=== PATIENT | male | born 1930 | race Caucasian/White ===

== ENCOUNTER 2018-07-08 02:29 | Inpatient (IN) | payer MEDICARE, MEDICAID ==
[2018-07-08] VITALS (19 sets, daily range): BP systolic 80–133; BP diastolic 42–77
[~2018-07-08] VITALS: Ht 188 cm; Wt 91.2 kg
[2018-07-08] MEDS ORDERED: cefTRIAXone 1 GM in NS 55 ML IVPB ONE (02:45)
[2018-07-08 03:06] LABS: APPEARANCE,URINE VERY CLOUDY; BILIRUBIN, URINE NEGATIVE (NEGATIVE); COLOR,URINE RED; GLUCOSE, URINE (UA) NEGATIVE (NEGATIVE); HEMATOCRIT 30.7 % (42.0-52.0); HEMOGLOBIN 10.1 G/DL (14.2-18.0); KETONES,URINE NEGATIVE (NEGATIVE); LEUKOCYTE ESTERASE ,URINE 3+ (NEGATIVE); MEAN CORPUSCULAR VOLUME 94 FL (80-99); NITRITE,URINE NEGATIVE (NEGATIVE); PH,URINE 8 (4.5-8.0); PLATELET COUNT 290 K/UL (150-450); PROTEIN,URINE 4+ (NEGATIVE); RED BLOOD COUNT 3.28 M/UL (4.70-6.10); RED CELL DISTRIBUTION WIDTH 14.3 % (11.6-14.8); UROBILINOGEN,URINE NORMAL MG/DL (0.0-1.0); WHITE BLOOD COUNT 4.5 K/UL (4.8-10.8)
[2018-07-08 03:15] LABS: ANION GAP 1 mmol/L (5-15); BLOOD UREA NITROGEN 46 mg/dL (7-18); CALCIUM 8.6 MG/DL (8.5-10.1); CARBON DIOXIDE 39 MMOL/L (21-32); CHLORIDE 97 MMOL/L (98-107); CREATININE 1.2 MG/DL (0.55-1.30); POTASSIUM 4.4 MMOL/L (3.5-5.1); SODIUM 136 MMOL/L (136-145)
[2018-07-08 03:20] LABS: ALANINE AMINOTRANSFERASE 18 U/L (12-78); ALBUMIN 2.1 G/DL (3.4-5.0); ALBUMIN/GLOBULIN RATIO 0.5 (1.0-2.7); ALKALINE PHOSPHATASE 229 U/L (46-116); ASPARTATE AMINO TRANSFERASE 22 U/L (15-37); BILIRUBIN,TOTAL 0.8 MG/DL (0.2-1.0); CREATINE KINASE 46 U/L (26-308)
[2018-07-08 03:25] LABS: INR 5.5 (0.9-1.1)
--- NOTE | 2018-07-08 03:45 | Diagnostic Imaging Report ---
EXAM: XR Chest, 1 View CLINICAL HISTORY: CP TECHNIQUE: Frontal view of the chest. COMPARISON: No relevant prior studies available. FINDINGS: Lungs: There are bilateral pulmonary infiltrates seen at the right lung base and left perihilar and left lower lung. Pleural space: Left pleural effusion. No pneumothorax. Heart: Heart size cannot be evaluated due to patient positioning. Mediastinum: There is a questionable hiatal hernia. Bones/joints: Degenerative changes of the spine. Vasculature: Calcification of the aortic arch. Other findings: The patient is rotated. IMPRESSION: 1. Bilateral pulmonary infiltrates. 2. Left pleural effusion.
--- NOTE | 2018-07-08 04:16 | Emergency Room Report ---
History of Present Illness General Chief Complaint: Altered Level of Consciousness Source: EMS Present Illness HPI 88M with altered compared to baseline acc to SNF. The patient supposedly is somewhat communicative. For me he is able to look around with his name. But unable to talk meaningfully to me. History is limited due to clinical condition. Allergies: Coded Allergies: PENICILLINS (Verified Allergy, Intermediate, 07/08/18) Nursing Documentation-PMH Hx Hypertension: Yes Review of Systems All Other Systems: limited Physical Exam Vital Signs Date Time Temp Pulse Resp B/P (MAP) Pulse Ox O2 Delivery O2 Flow Rate FiO2 07/08/18 02:22 98.1 110 20 76/42 87 Room Air 07/08/18 02:50 15.0 07/08/18 02:50 90 Sp02 EP Interpretation: abnormal General Appearance: mild distress Head: normocephalic, atraumatic ENT: dry mucus membranes Neck: supple Respiratory: other - mild resp distress Cardiovascular #1: regular rate, rhythm, other - anasarca, edema Gastrointestinal: other - PEG Genitourinary: other - parker inserted into urethra only; gross hematuria Musculoskeletal: other - anasarca Neurologic: alert Skin: other - some skin breakdown; stage I sacral Medical Decision Making Diagnostic Impression: Primary Impression: Altered level of consciousness Additional Impressions: UTI (urinary tract infection) Sepsis Pneumonia ER Course I do not want to give addl IV fluids due to anasarca. I am giving second liter NS due to borderline bp. Now bp is SBP 96. The pulse ox is fine (when it's low it's been b/c the pulse ox is loose on finger.) At this time I do not think pt. should be intubated due to him being alert and oriented and no dyspnea. He does have a very poor looking CXR with infiltrates and left effusion and he is anasarca and received two liters NS in ED. He could deteriorate and need intubation later today but at this time he is in no resp distress. He also is alert and oriented. He also had severe gross hematuria related to Parker being in urethra and INR 5.5. Parker has been replaced and properly positioned. Urine is grossly purulent. He also has Stage I sacral decubitus. He has been treated with Ceftriaxone and Zithromax. IV Albumin ordered due to trying to not give too much fluid. Critical care 35 minutes This patient had life threatening conditions requiring intensive management face to face and with RN and medical staff. Dr. Infante has been notified. EKG Diagnostic Results EKG Time: 05:12 Rate: tachycardiac ST Segments: no acute changes ASA given to the pt in ED: No Rhythm Strip Diag. Results Rhythm Strip Time: 05:12 EP Interpretation: yes Rate: 82 Rhythm: NSR Chest X-Ray Diagnostic Results Chest X-Ray Diagnostic Results : Chest X-Ray Ordered: Yes # of Views/Limited/Complete: 1 View Indication: Shortness of Breath EP Interpretation: Yes Interpretation: other - left effusion, bilateral infiltrates Last Vital Signs Date Time Temp Pulse Resp B/P (MAP) Pulse Ox O2 Delivery O2 Flow Rate FiO2 07/08/18 02:50 80 18 Non-Rebreather 15.0 90 07/08/18 02:50 101.0 83/42 90 Status: unchanged Disposition: ADMITTED INPATIENT Condition: Critical Referrals: NON PHYSICIAN (PCP) Janusz Montes M.D. Jul 08, 2018 04:16
[2018-07-08] MEDS ORDERED: Azithromycin 500 MG in NS 275 ML IV ONE (05:30)
[2018-07-08] MEDS ORDERED: Albuterol/Ipratropium 3ml neb HHN PRN (06:30)
[2018-07-08] MEDS ORDERED: Morphine Sulfate 4mg/ml Inj (IV/IM USE ONLY) IVP PRN (06:30)
[2018-07-08] MEDS ORDERED: Miralax 17gm pkt ORAL PRN (06:30)
[2018-07-08] MEDS ORDERED: Sodium Chloride 500ML 500 ML IV ONE (07:30)
[2018-07-08] MEDS ORDERED: Amikacin Rx to dose MISC PRN (07:45)
[2018-07-08] MEDS ORDERED: Heparin 5000 units/ml inj SUBQ SCH (09:00)
[2018-07-08] MEDS ORDERED: Pantoprazole Inj IVP SCH (09:00)
[2018-07-08] MEDS: Ertapenem 1 GM in NS 55 ML IV SCH (09:01)
--- NOTE | 2018-07-08 09:06 | Pulmonolgy Critical Care Note ---
Critical Care - Asmt/Plan Assessment/Plan: HPI Patient is an 88 year old man admitted with altered mental status, UTI, Pneumonia, hypotension, significantly elevated INR, difficult urethral catheterization. Baseline mental status at [facility] is somewhat communicative. History is limited due to clinical condition. Allergies: Coded Allergies: PENICILLINS (Verified Allergy, Intermediate, 07/08/18) PMH: Hypertension: Yes System review: limited Physical Exam Vital Signs 07/08/18 02:22 T 98.1 HR 110 RR 20 BP 76/42 O2 sats 87 RA General Appearance: mild distress Head: normocephalic, atraumatic ENT: dry mucus membranes Neck: supple Respiratory: other - mild resp distress Cardiovascular : regular rate, rhythm, other - anasarca, edema Gastrointestinal: other - PEG Genitourinary: other - parker inserted into urethra only; gross hematuria Musculoskeletal: other - anasarca Neurologic: alert Skin: other moderate edema, no rashes, stage I sacral ulcer EKG Rate: Sinus tachycardia ST Segments: no acute changes Chest X-Ray: Left effusion, bilateral infiltrates Impression: Altered level of consciousness Pneumonia Urinary tract infection Sepsis Plan IV fluids PRN, IV Albumin PRN FFP to correct INR Broad spectrum antibiotics: Ceftriaxone and Zithromax PPX: Protonix, SCD Oxygen for O2 sats 90-96% ABG, may require intubation if incfreased O2 requirements Consider thoracentesis once coagulopathy corrected Critical Care - Objective Last 24 Hour Vital Signs Date Time Temp Pulse Resp B/P (MAP) Pulse Ox O2 Delivery O2 Flow Rate FiO2 07/08/18 08:34 98.9 77 20 97/53 99 Room Air 15.0 90 07/08/18 07:26 77 20 97/53 99 Room Air 07/08/18 05:21 98.9 99 18 90/57 90 Room Air 07/08/18 04:50 98.9 90 18 96/56 90 Room Air 07/08/18 03:50 99.9 18 80/43 90 Non-Rebreather 15.0 07/08/18 02:50 80 18 Non-Rebreather 15.0 90 07/08/18 02:50 101.0 20 83/42 90 Non-Rebreather 15.0 07/08/18 02:22 98.1 110 20 76/42 87 Room Air Micro: Microbiology Date/Time Source Procedure Growth Status 07/08/18 05:30 Nose Influenza Types A,B Antigen (VICK) - Final Complete Critical Care - Subjective ROS Limited/Unobtainable: Yes Condition: critical EKG Rhythm: Sinus Rhythm FI02: 90 I&O: Intake and Output 07/07/18 07/08/18 18:59 06:59 Intake Total 500 ml Balance 500 ml Intake IV Total 500 ml Jerry Altman MD Jul 08, 2018 09:06
[2018-07-08] MEDS ORDERED: Lidocaine 1% Plain 30 ml INJ PRN (09:30)
[2018-07-08] MEDS ORDERED: Vancomycin 1.5 GM/D5W 250ML IVPB ONE (10:00)
[2018-07-08] MEDS ORDERED: NS IV SCH (12:00)
[2018-07-08] MEDS ORDERED: AMIKACIN IV SCH (12:00)
--- NOTE | 2018-07-08 14:19 | Cardiac Electrophysiology PN ---
Subjective Subjective [id number] Objective Last 24 Hour Vital Signs Date Time Temp Pulse Resp B/P (MAP) Pulse Ox O2 Delivery O2 Flow Rate FiO2 07/08/18 12:30 Bi-pap 07/08/18 12:30 72 17 95 Facial 35 07/08/18 12:00 97.8 75 20 103/59 (74) 97 07/08/18 12:00 35 07/08/18 11:00 75 20 103/59 (74) 97 07/08/18 10:00 74 20 104/53 (70) 94 07/08/18 09:00 97.9 75 21 87/43 (58) 100 07/08/18 08:45 Non-Rebreather 15.0 07/08/18 08:45 15.0 100 07/08/18 08:34 98.9 77 20 97/53 99 Room Air 15.0 90 07/08/18 08:30 71 07/08/18 07:26 77 20 97/53 99 Room Air 07/08/18 05:21 98.9 99 18 90/57 90 Room Air 07/08/18 04:50 98.9 90 18 96/56 90 Room Air 07/08/18 03:50 99.9 18 80/43 90 Non-Rebreather 15.0 07/08/18 02:50 80 18 Non-Rebreather 15.0 90 07/08/18 02:50 101.0 20 83/42 90 Non-Rebreather 15.0 07/08/18 02:22 98.1 110 20 76/42 87 Room Air Intake and Output 07/07/18 07/08/18 18:59 06:59 Intake Total 500 ml Balance 500 ml Intake IV Total 500 ml Laboratory Tests Test 07/08/18 02:33 07/08/18 03:00 07/08/18 05:52 07/08/18 09:27 White Blood Count 4.5 K/UL (4.8-10.8) L Red Blood Count 3.28 M/UL (4.70-6.10) L Hemoglobin 10.1 G/DL (14.2-18.0) L Hematocrit 30.7 % (42.0-52.0) L Mean Corpuscular Volume 94 FL (80-99) Mean Corpuscular Hemoglobin 30.8 PG (27.0-31.0) Mean Corpuscular Hemoglobin Concent 32.9 G/DL (32.0-36.0) Red Cell Distribution Width 14.3 % (11.6-14.8) Platelet Count 290 K/UL (150-450) Mean Platelet Volume 7.1 FL (6.5-10.1) Neutrophils (%) (Auto) % (45.0-75.0) Lymphocytes (%) (Auto) % (20.0-45.0) Monocytes (%) (Auto) % (1.0-10.0) Eosinophils (%) (Auto) % (0.0-3.0) Basophils (%) (Auto) % (0.0-2.0) Differential Total Cells Counted 100 Neutrophils % (Manual) 79 % (45-75) H Lymphocytes % (Manual) 7 % (20-45) L Monocytes % (Manual) 2 % (1-10) Eosinophils % (Manual) 0 % (0-3) Basophils % (Manual) 0 % (0-2) Band Neutrophils 12 % (0-8) H Platelet Estimate Adequate Platelet Morphology Normal Hypochromasia 1+ Anisocytosis 1+ Prothrombin Time 53.2 SEC (9.30-11.50) H Prothromb Time International Ratio 5.5 (0.9-1.1) *H Urine Color Red Urine Appearance Very cloudy Urine pH 8 (4.5-8.0) Urine Specific [place] 1.015 (1.005-1.035) Urine Protein 4+ (NEGATIVE) H Urine Glucose (UA) Negative (NEGATIVE) Urine Ketones Negative (NEGATIVE) Urine Blood 5+ (NEGATIVE) H Urine Nitrite Negative (NEGATIVE) Urine Bilirubin Negative (NEGATIVE) Urine Urobilinogen Normal MG/DL (0.0-1.0) Urine Leukocyte Esterase 3+ (NEGATIVE) H Urine RBC Tntc /HPF (0 - 0) H Urine WBC Tntc /HPF (0 - 0) H Urine Squamous Epithelial Cells Few /LPF (NONE/OCC) Urine Bacteria Many /HPF (NONE) H Sodium Level 136 MMOL/L (136-145) Potassium Level 4.4 MMOL/L (3.5-5.1) Chloride Level 97 MMOL/L (98-107) L Carbon Dioxide Level 39 MMOL/L (21-32) H Anion Gap 1 mmol/L (5-15) L Blood Urea Nitrogen 46 mg/dL (7-18) H Creatinine 1.2 MG/DL (0.55-1.30) Estimat Glomerular Filtration Rate mL/min (>60) Glucose Level 89 MG/DL (74-106) Lactic Acid Level 2.90 mmol/L (0.4-2.0) H 2.50 mmol/L (0.66-2.22) H Calcium Level 8.6 MG/DL (8.5-10.1) Total Bilirubin 0.8 MG/DL (0.2-1.0) Aspartate Amino Transf (AST/SGOT) 22 U/L (15-37) Alanine Aminotransferase (ALT/SGPT) 18 U/L (12-78) Alkaline Phosphatase 229 U/L (46-116) H Total Creatine Kinase 46 U/L (26-308) Troponin I 0.053 ng/mL (0.000-0.056) Total Protein 6.6 G/DL (6.4-8.2) Albumin 2.1 G/DL (3.4-5.0) L Globulin 4.5 g/dL Albumin/Globulin Ratio 0.5 (1.0-2.7) L Pro-B-Type Natriuretic Peptide 6812 pg/mL (0-125) H Arterial Blood pH 7.360 (7.350-7.450) Arterial Blood Partial Pressure CO2 66.8 mmHg (35.0-45.0) *H Arterial Blood Partial Pressure O2 101.4 mmHg (75.0-100.0) H Arterial Blood HCO3 36.9 mmol/L (22.0-26.0) H Arterial Blood Oxygen Saturation 96.8 % (95-100) Arterial Blood Base Excess 9.9 (-2-2) *H Guicho Test Positive Test 07/08/18 12:45 Lactic Acid Level 2.30 mmol/L (0.4-2.0) H Microbiology Date/Time Source Procedure Growth Status 07/08/18 05:30 Nose Influenza Types A,B Antigen (VICK) - Final Complete Gerson Isaacs MD Jul 08, 2018 14:19
--- NOTE | 2018-07-08 14:30 | History & Physical ---
History and Physical History & Physicial Dictated for Int Med-Dr Herman no. [id number]. Dale Hale MD Jul 08, 2018 14:30
[2018-07-08] MEDS ORDERED: Tubing Blood Filter IV ONE (15:11)
[2018-07-08] MEDS ORDERED: Tubing IV Secondary IV ONE (15:11)
[2018-07-08] MEDS ORDERED: NS 500ML ONE (15:11)
[2018-07-08] MEDS: Pantoprazole Inj IVP SCH (21:20)
[2018-07-08] MEDS: Vancomycin 750mg/NS 250ml IVPB SCH (21:50)
[2018-07-08] MEDS ORDERED: Vancomycin 1 GM in D5W 275 ML IV SCH (23:45)
[2018-07-09] VITALS (24 sets, daily range): BP systolic 125–163; BP diastolic 60–80
--- NOTE | 2018-07-09 02:45 | History and Physical Report ---
DATE OF ADMISSION: 07/08/2018 CHIEF COMPLAINT: The patient is an 88-year-old white male, who presents with complaint of altered mental status. HISTORY OF PRESENT ILLNESS: The patient is a resident of [facility]. Much of the history and physical has taken from the patient's previous caregiver, who is at the bedside. The patient apparently was admitted to the [facility] previously. The patient was discharged to [facility]. The patient has a history of deep venous thrombosis. The patient is on Coumadin therapy. According to the staff at [facility], the patient became altered for the last couple of days. The patient is usually able to speak and answer questions. The patient was increasingly altered on Monday, July 07, 2018. The patient was transferred to [facility] for an evaluation. The patient was found to have urinary tract infection and congestive heart failure. The patient is admitted for urinary tract infection and presumed sepsis. REVIEW OF SYSTEMS: Unable to assess secondary to the patient's mental status. PAST MEDICAL HISTORY: Significant for, 1. Congestive heart failure. 2. Hypertension. 3. Benign prostatic hypertrophy. 4. Iron deficiency anemia. PAST SURGICAL HISTORY: Unknown. CURRENT MEDICATIONS: From [facility], 1. Coumadin 4 mg p.o. daily. 2. DuoNeb nebulized q.6 h. p.r.n. 3. Furosemide 20 mg per G-tube every other day. 4. Melatonin 3 mg p.o. at bedtime. 5. Mirtazapine 45 mg p.o. at bedtime. 6. MiraLAX one packet per G-tube daily. 7. Potassium chloride 40 mEq per G-tube daily. 8. Valsartan 160 mg per G-tube twice daily. ALLERGIES: Penicillin. SOCIAL HISTORY: The patient is . The patient denies tobacco use. PHYSICAL EXAMINATION: VITAL SIGNS: Temperature 97.9, respirations , pulse 75, and blood pressure 87/43. GENERAL: The patient is a well-developed and well-nourished white male, who is currently on BiPAP. HEENT: Eyes, pupils are equal and responsive to light and accommodation. Extraocular movements are intact. NECK: Supple without lymphadenopathy. CHEST: Lungs have bibasilar crackles one-third of the way up, otherwise without wheezes or rales. CARDIOVASCULAR: Bradycardia, S1 and S2 normal without murmurs, rubs, or gallops. ABDOMEN: Soft, nontender, and nondistended. Positive bowel sounds. No evidence of hepatosplenomegaly. Currently, no rebound or guarding noted. EXTREMITIES: Negative for clubbing, cyanosis, or edema. RECTAL/GENITAL: Do not performed. NEUROLOGICAL: Cranial nerves II through XII are grossly intact without focal deficits. LABORATORY AND DIAGNOSTIC DATA: WBC 4.5, hemoglobin 10.1, hematocrit 30.7, and platelets 290,000. Sodium 136, potassium 4.4, chloride 97, CO2 39, BUN 46, creatinine 1.2, and glucose 89. BNP elevated at 6812. Troponin elevated at 0.053. Urinalysis showed 4+ protein, 5+ blood, 3+ leukocyte esterase, and rbc's and wbc's too numerous to count. ProTime elevated at 53.2 with an INR 5.5. ASSESSMENT: This is an 88-year-old white male. 1. Altered mental status. 2. Bradycardia. 3. Coagulopathy. 4. Congestive heart failure. 5. Hypertension. 6. Benign prostatic hypertrophy. 7. History of iron deficiency anemia. TREATMENT: 1. Altered mental status. This may be secondary to sepsis versus congestive heart failure. The patient is currently on BiPAP. A Pulmonary consultation has been obtained with Dr. Gertrudis Quintanilla. We will follow recommendations of Pulmonary. 2. Bradycardia. A Cardiology consultation has been obtained with Dr. Gerson Isaacs. We will follow recommendation of Cardiology. 3. Congestive heart failure. The patient is currently receiving Lasix intravenously. A Cardiology consultation has been obtained with Dr. Gerson Isaacs. An echocardiogram is pending. 4. Coagulopathy, this is probably secondary to chronic Coumadin use. The patient is currently receiving fresh frozen plasma. 5. Hypertension. The patient is currently hypotensive. 6. Benign prostatic hypertrophy. 7. History of iron deficiency anemia. Dale Hale M.D. DR: SUMA JOB#: [id number] CC:
--- NOTE | 2018-07-09 04:30 | Consultation ---
DATE OF CONSULTATION: 07/08/2018 CARDIOLOGY CONSULTATION CONSULTING PHYSICIAN: Gerson Isaacs M.D. REFERRING PHYSICIAN: Dale Hale M.D. REASON FOR CONSULTATION: Bradycardia, hypotension, and elevated INR in a patient with sepsis and septic shock. HISTORY OF PRESENT ILLNESS: The patient is an 88-year-old gentleman, who is a custodial resident, who was brought in for hypotension and altered mental status. The patient was found to have sepsis, elevated INR, and blood pressure was in the 70s. The patient has also bradycardia with heart rate in the 50s. The patient was admitted to the intensive care unit. Cardiology consultation was obtained for further evaluation and management. REVIEW OF SYSTEMS: Cannot be obtained as he is currently on BiPAP. PAST MEDICAL HISTORY: As mentioned above. FAMILY HISTORY: Noncontributory. SOCIAL HISTORY: He lives in a custodial. He does not smoke or drink alcohol. PHYSICAL EXAMINATION: VITAL SIGNS: Blood pressure was 75/50, currently 102/59; pulse is 70; respirations 18; and he is afebrile. HEAD AND NECK: Shows no JVD. He has BiPAP on. LUNGS: Coarse rhonchi. CARDIOVASCULAR: Shows regular S1 and S2 with no gallop or murmur. ABDOMEN: Soft. EXTREMITIES: 1+ pitting edema. LABORATORY AND DIAGNOSTIC DATA: His labs showed white count 4.5, hemoglobin 10.9, hematocrit of 30, and platelet count of 290,000. His troponin is negative. Sodium 136, potassium 4.4, BUN of 36, creatinine of 1.2, and glucose of 89. Alkaline phosphatase is 229. INR is 5.5. Urinalysis showed too numerous to count wbc and rbc, had 3+ leukocyte esterase, and many bacteria. ASSESSMENT AND PLAN: 1. Hypotension due to likely septic shock. The patient is ordered for Levophed. They are waiting central line. He is getting IV fluids, already on broad-spectrum IV antibiotics as well. We will get an echocardiogram to evaluate for ejection fraction and wall motion abnormality. 2. Bradycardia, heart rate is improving. Keep the patient off any sinus or AV ac blocking agents. 3. History of DVT. The patient was on Coumadin. INR is 5.5. The patient is getting FFP. Current duplex is negative for DVT. 4. History of respiratory failure, currently on BiPAP. The patient may need intubation, admitted to increased home O2 requirement. 5. Pleural effusion. Consider thoracentesis once coagulopathy corrected. Thank you very much for allowing me to participate in the care of this patient. Please do not hesitate to contact me for any questions regarding my evaluation. Gerson Isaacs M.D. DR: NICOLE JOB#: [id number] CC:
[2018-07-09 05:52] LABS: HEMATOCRIT 28.1 % (42.0-52.0); HEMOGLOBIN 9.8 G/DL (14.2-18.0); MEAN CORPUSCULAR VOLUME 94 FL (80-99); PLATELET COUNT 252 K/UL (150-450); RED BLOOD COUNT 2.98 M/UL (4.70-6.10); RED CELL DISTRIBUTION WIDTH 14.4 % (11.6-14.8); WHITE BLOOD COUNT 14.9 K/UL (4.8-10.8)
[2018-07-09 06:10] LABS: ALANINE AMINOTRANSFERASE 18 U/L (12-78); ALBUMIN 2.3 G/DL (3.4-5.0); ALBUMIN/GLOBULIN RATIO 0.6 (1.0-2.7); ALKALINE PHOSPHATASE 151 U/L (46-116); ANION GAP 0 mmol/L (5-15); ASPARTATE AMINO TRANSFERASE 21 U/L (15-37); BILIRUBIN,DIRECT 0.1 MG/DL (0.0-0.3); BILIRUBIN,TOTAL 0.4 MG/DL (0.2-1.0); BLOOD UREA NITROGEN 46 mg/dL (7-18); CALCIUM 8.9 MG/DL (8.5-10.1); CARBON DIOXIDE 36 MMOL/L (21-32); CHLORIDE 102 MMOL/L (98-107); CREATININE 1.1 MG/DL (0.55-1.30); POTASSIUM 4.3 MMOL/L (3.5-5.1); SODIUM 138 MMOL/L (136-145)
[2018-07-09] MEDS: Pantoprazole Inj IVP SCH ×2 (09:02→20:40)
[2018-07-09] MEDS: Ertapenem 1 GM in NS 55 ML IV SCH (09:03)
[2018-07-09] MEDS: Vancomycin 750mg/NS 250ml IVPB SCH ×2 (09:20→22:26)
--- NOTE | 2018-07-09 10:22 | Pulmonolgy Critical Care Note ---
Critical Care - Asmt/Plan Problems: (1) Septic shock (2) Altered level of consciousness (3) Dementia (4) UTI (urinary tract infection) (5) Pneumonia (6) Feeding by G-tube Respiratory: monitor respiratory rate, adjust FIO2, CXR Cardiac: continue to monitor HR/BP Renal: F/U I&O, check electrolytes Infectious Disease: check cultures Gastrointestinal: start feedings Endocrine: monitor blood sugar, check TSH Hematologic: transfuse if hgb<8.5 Neurologic: PRN Ativan, keep patient comfortable Disposition: keep in ICU Notes Reviewed: java software architect Discussed with: nurses, consultants, case workerhousehold manager - Objective Last 24 Hour Vital Signs Date Time Temp Pulse Resp B/P (MAP) Pulse Ox O2 Delivery O2 Flow Rate FiO2 07/09/18 09:00 67 18 148/71 (96) 99 07/09/18 08:28 150/70 07/09/18 08:00 69 07/09/18 08:00 Nasal Cannula 2.0 07/09/18 08:00 71 20 150/70 (96) 96 07/09/18 07:05 Nasal Cannula 2.0 28 07/09/18 07:05 93 Nasal Cannula 2.0 28 07/09/18 07:00 97.4 62 26 140/70 (93) 92 07/09/18 06:00 68 17 133/70 (91) 95 07/09/18 05:41 65 16 98 2.0 28 07/09/18 05:36 64 18 100 Facial 30 07/09/18 05:00 60 18 133/70 (91) 98 07/09/18 04:00 Nasal Cannula 2.0 07/09/18 04:00 66 07/09/18 04:00 97.7 62 16 146/65 (92) 100 07/09/18 03:00 62 14 153/80 (104) 100 07/09/18 02:40 63 17 98 Facial 30 07/09/18 02:00 62 16 127/66 (86) 99 07/09/18 01:18 62 17 100 Facial 30 07/09/18 01:00 67 16 132/69 (90) 99 07/09/18 00:00 97.8 69 16 125/60 (81) 99 07/09/18 00:00 Nasal Cannula 2.0 07/08/18 23:29 72 17 96 Facial 30 07/08/18 23:00 72 16 127/62 (83) 96 07/08/18 22:00 72 18 128/75 (92) 96 07/08/18 21:05 72 16 99 28 07/08/18 21:00 72 18 131/75 (93) 96 07/08/18 20:00 97.6 72 17 127/62 (83) 96 07/08/18 20:00 72 07/08/18 20:00 Nasal Cannula 2.0 07/08/18 19:18 Nasal Cannula 2.0 28 07/08/18 19:18 99 Nasal Cannula 2.0 28 07/08/18 19:17 70 19 Nasal Cannula 2.0 28 07/08/18 19:15 70 19 2.0 28 07/08/18 18:00 65 16 121/77 (92) 99 07/08/18 17:01 67 16 100 Facial 35 07/08/18 17:00 66 16 125/66 (85) 99 07/08/18 16:00 97.8 64 15 115/52 (73) 100 07/08/18 16:00 62 07/08/18 16:00 Bi-pap 07/08/18 16:00 15.0 100 07/08/18 15:26 62 16 100 Facial 35 07/08/18 15:00 60 16 133/77 (95) 99 07/08/18 14:00 61 14 106/63 (77) 100 07/08/18 13:00 62 14 81/53 (62) 100 07/08/18 12:30 Bi-pap 07/08/18 12:30 72 17 95 Facial 35 07/08/18 12:00 97.8 75 20 103/59 (74) 97 07/08/18 12:00 35 07/08/18 12:00 77 07/08/18 11:00 75 20 103/59 (74) 97 Status: awake Condition: critical HEENT: atraumatic Neck: full ROM Lungs: rales, rhonchi Heart: HR/BP stable Abdomen: soft, non-tender Extremities: no C/C/E, edema Decubiti: location Micro: Microbiology Date/Time Source Procedure Growth Status 07/08/18 02:48 Blood Blood Culture - Preliminary NO GROWTH AFTER 24 HOURS Resulted 07/08/18 02:33 Blood Blood Culture - Preliminary NO GROWTH AFTER 24 HOURS Resulted 07/08/18 05:30 Nose Influenza Types A,B Antigen (VICK) - Final Complete 07/08/18 14:55 Indwelling Cath Urine Culture - Preliminary Gram Negative Bacillus 1 Resulted 07/08/18 02:33 Urine,Clean Catch Urine Culture - Preliminary Resulted 07/08/18 07:24 Rectum - Preliminary Resulted Critical Care - Subjective ROS Limited/Unobtainable: No ICU Day: 3 Condition: improving EKG Rhythm: Sinus Rhythm FI02: 28 Sputum Amount: None Fluids: NS 100 cc/hour I&O: Intake and Output 07/08/18 07/09/18 19:00 07:00 Intake Total 1865.2 ml 1350.0 ml Output Total 1040 ml 480 ml Balance 825.2 ml 870.0 ml Intake IV Total 1235.2 ml 1350.0 ml Blood Product 600 ml Other 30 ml Output Urine Total 1040 ml 480 ml Labs: Laboratory Tests Test 07/08/18 12:45 07/08/18 19:00 07/09/18 00:20 07/09/18 04:30 Lactic Acid Level 2.30 mmol/L (0.4-2.0) H 1.20 mmol/L (0.4-2.0) Miscellaneous Test 2 Pending Random Amikacin Level 16.3 ug/mL White Blood Count 14.9 K/UL (4.8-10.8) #H Red Blood Count 2.98 M/UL (4.70-6.10) L Hemoglobin 9.8 G/DL (14.2-18.0) L Hematocrit 28.1 % (42.0-52.0) L Mean Corpuscular Volume 94 FL (80-99) Mean Corpuscular Hemoglobin 32.9 PG (27.0-31.0) H Mean Corpuscular Hemoglobin Concent 34.9 G/DL (32.0-36.0) Red Cell Distribution Width 14.4 % (11.6-14.8) Platelet Count 252 K/UL (150-450) Mean Platelet Volume 7.6 FL (6.5-10.1) Neutrophils (%) (Auto) % (45.0-75.0) Lymphocytes (%) (Auto) % (20.0-45.0) Monocytes (%) (Auto) % (1.0-10.0) Eosinophils (%) (Auto) % (0.0-3.0) Basophils (%) (Auto) % (0.0-2.0) Differential Total Cells Counted 100 Neutrophils % (Manual) 90 % (45-75) H Lymphocytes % (Manual) 7 % (20-45) L Monocytes % (Manual) 3 % (1-10) Eosinophils % (Manual) 0 % (0-3) Basophils % (Manual) 0 % (0-2) Band Neutrophils 0 % (0-8) Platelet Estimate Adequate Platelet Morphology Normal Hypochromasia 2+ Anisocytosis 1+ Sodium Level 138 MMOL/L (136-145) Potassium Level 4.3 MMOL/L (3.5-5.1) Chloride Level 102 MMOL/L (98-107) Carbon Dioxide Level 36 MMOL/L (21-32) H Anion Gap 0 mmol/L (5-15) L Blood Urea Nitrogen 46 mg/dL (7-18) H Creatinine 1.1 MG/DL (0.55-1.30) Estimat Glomerular Filtration Rate mL/min (>60) Glucose Level 68 MG/DL (74-106) L Calcium Level 8.9 MG/DL (8.5-10.1) Total Bilirubin 0.4 MG/DL (0.2-1.0) Direct Bilirubin 0.1 MG/DL (0.0-0.3) Aspartate Amino Transf (AST/SGOT) 21 U/L (15-37) Alanine Aminotransferase (ALT/SGPT) 18 U/L (12-78) Alkaline Phosphatase 151 U/L (46-116) H Troponin I 0.015 ng/mL (0.000-0.056) Total Protein 6.4 G/DL (6.4-8.2) Albumin 2.3 G/DL (3.4-5.0) L Globulin 4.1 g/dL Albumin/Globulin Ratio 0.6 (1.0-2.7) L Gertrudis Quintanilla MD Jul 09, 2018 10:22
--- NOTE | 2018-07-09 11:06 | Consultation ---
History of Present Illness General Date patient seen: Jul 08, 2018 Chief Complaint: Altered Level of Consciousness Present Illness HPI 88-year-old white male, who presents with complaint of altered mental status.The patient is a resident of [facility] and I'm well familiar with him the pt has waxing and waning of consciousness and is confused. episodes of agitation Allergies: Coded Allergies: PENICILLINS (Verified Allergy, Intermediate, 07/08/18) Patient History History Provided By: Patient, Medical Record, PMD Healthcare decision maker Resuscitation status Full Code Advanced Directive on File Past Medical/Surgical History Past Medical/Surgical History: (1) Dementia (2) Sepsis (3) UTI (urinary tract infection) (4) Pneumonia (5) Altered level of consciousness (6) Feeding by G-tube (7) Septic shock Review of Systems Psychiatric: Reports: anxiety, hallucinations Physical Exam General Appearance: no apparent distress, alert, confused Last 24 Hour Vital Signs Date Time Temp Pulse Resp B/P (MAP) Pulse Ox O2 Delivery O2 Flow Rate FiO2 07/09/18 09:00 67 18 148/71 (96) 99 07/09/18 08:28 150/70 07/09/18 08:00 69 07/09/18 08:00 Nasal Cannula 2.0 07/09/18 08:00 71 20 150/70 (96) 96 07/09/18 07:05 Nasal Cannula 2.0 28 07/09/18 07:05 93 Nasal Cannula 2.0 28 07/09/18 07:00 97.4 62 26 140/70 (93) 92 07/09/18 06:00 68 17 133/70 (91) 95 07/09/18 05:41 65 16 98 2.0 28 07/09/18 05:36 64 18 100 Facial 30 07/09/18 05:00 60 18 133/70 (91) 98 07/09/18 04:00 Nasal Cannula 2.0 07/09/18 04:00 66 07/09/18 04:00 97.7 62 16 146/65 (92) 100 07/09/18 03:00 62 14 153/80 (104) 100 07/09/18 02:40 63 17 98 Facial 30 07/09/18 02:00 62 16 127/66 (86) 99 07/09/18 01:18 62 17 100 Facial 30 07/09/18 01:00 67 16 132/69 (90) 99 07/09/18 00:00 97.8 69 16 125/60 (81) 99 07/09/18 00:00 Nasal Cannula 2.0 07/08/18 23:29 72 17 96 Facial 30 07/08/18 23:00 72 16 127/62 (83) 96 07/08/18 22:00 72 18 128/75 (92) 96 07/08/18 21:05 72 16 99 28 07/08/18 21:00 72 18 131/75 (93) 96 07/08/18 20:00 97.6 72 17 127/62 (83) 96 07/08/18 20:00 72 07/08/18 20:00 Nasal Cannula 2.0 07/08/18 19:18 Nasal Cannula 2.0 28 07/08/18 19:18 99 Nasal Cannula 2.0 28 07/08/18 19:17 70 19 Nasal Cannula 2.0 28 07/08/18 19:15 70 19 2.0 28 07/08/18 18:00 65 16 121/77 (92) 99 07/08/18 17:01 67 16 100 Facial 35 07/08/18 17:00 66 16 125/66 (85) 99 07/08/18 16:00 97.8 64 15 115/52 (73) 100 07/08/18 16:00 62 07/08/18 16:00 Bi-pap 07/08/18 16:00 15.0 100 07/08/18 15:26 62 16 100 Facial 35 07/08/18 15:00 60 16 133/77 (95) 99 07/08/18 14:00 61 14 106/63 (77) 100 07/08/18 13:00 62 14 81/53 (62) 100 07/08/18 12:30 Bi-pap 07/08/18 12:30 72 17 95 Facial 35 07/08/18 12:00 97.8 75 20 103/59 (74) 97 07/08/18 12:00 35 07/08/18 12:00 77 Intake and Output 07/08/18 07/09/18 19:00 07:00 Intake Total 1865.2 ml 1350.0 ml Output Total 1040 ml 480 ml Balance 825.2 ml 870.0 ml Intake IV Total 1235.2 ml 1350.0 ml Blood Product 600 ml Other 30 ml Output Urine Total 1040 ml 480 ml Laboratory Tests Test 07/08/18 12:45 07/08/18 19:00 07/09/18 00:20 07/09/18 04:30 Lactic Acid Level 2.30 mmol/L (0.4-2.0) H 1.20 mmol/L (0.4-2.0) Miscellaneous Test 2 Pending Random Amikacin Level 16.3 ug/mL White Blood Count 14.9 K/UL (4.8-10.8) #H Red Blood Count 2.98 M/UL (4.70-6.10) L Hemoglobin 9.8 G/DL (14.2-18.0) L Hematocrit 28.1 % (42.0-52.0) L Mean Corpuscular Volume 94 FL (80-99) Mean Corpuscular Hemoglobin 32.9 PG (27.0-31.0) H Mean Corpuscular Hemoglobin Concent 34.9 G/DL (32.0-36.0) Red Cell Distribution Width 14.4 % (11.6-14.8) Platelet Count 252 K/UL (150-450) Mean Platelet Volume 7.6 FL (6.5-10.1) Neutrophils (%) (Auto) % (45.0-75.0) Lymphocytes (%) (Auto) % (20.0-45.0) Monocytes (%) (Auto) % (1.0-10.0) Eosinophils (%) (Auto) % (0.0-3.0) Basophils (%) (Auto) % (0.0-2.0) Differential Total Cells Counted 100 Neutrophils % (Manual) 90 % (45-75) H Lymphocytes % (Manual) 7 % (20-45) L Monocytes % (Manual) 3 % (1-10) Eosinophils % (Manual) 0 % (0-3) Basophils % (Manual) 0 % (0-2) Band Neutrophils 0 % (0-8) Platelet Estimate Adequate Platelet Morphology Normal Hypochromasia 2+ Anisocytosis 1+ Sodium Level 138 MMOL/L (136-145) Potassium Level 4.3 MMOL/L (3.5-5.1) Chloride Level 102 MMOL/L (98-107) Carbon Dioxide Level 36 MMOL/L (21-32) H Anion Gap 0 mmol/L (5-15) L Blood Urea Nitrogen 46 mg/dL (7-18) H Creatinine 1.1 MG/DL (0.55-1.30) Estimat Glomerular Filtration Rate mL/min (>60) Glucose Level 68 MG/DL (74-106) L Calcium Level 8.9 MG/DL (8.5-10.1) Total Bilirubin 0.4 MG/DL (0.2-1.0) Direct Bilirubin 0.1 MG/DL (0.0-0.3) Aspartate Amino Transf (AST/SGOT) 21 U/L (15-37) Alanine Aminotransferase (ALT/SGPT) 18 U/L (12-78) Alkaline Phosphatase 151 U/L (46-116) H Troponin I 0.015 ng/mL (0.000-0.056) Total Protein 6.4 G/DL (6.4-8.2) Albumin 2.3 G/DL (3.4-5.0) L Globulin 4.1 g/dL Albumin/Globulin Ratio 0.6 (1.0-2.7) L Microbiology Date/Time Source Procedure Growth Status 07/08/18 14:55 Indwelling Cath Urine Culture - Preliminary Gram Negative Bacillus 1 Resulted Height (Feet): 6 Height (Inches): 2.00 Weight (Pounds): 205 Medications Current Medications Medications (Trade) Dose Ordered Sig/Jorge Route PRN Reason Start Time Stop Time Status Last Admin Dose Admin Acetaminophen (Tylenol) 650 mg Q4H PRN ORAL fever (temp>100.5F) 07/08/18 06:30 08/07/18 06:29 Albuterol/ Ipratropium (Albuterol/ Ipratropium) 3 ml Q4H PRN HHN Shortness of Breath 07/08/18 06:30 07/13/18 06:29 Amikacin Protocol (Amikacin pharmacy to dose) 1 ea DAILY PRN MISC PER RX PROTOCOL 07/08/18 07:45 08/07/18 07:44 Amikacin Sulfate 1300 mg/Sodium Chloride 280.2 ml @ 280.2 mls/ hr Q48H IV 07/10/18 12:00 07/17/18 11:59 Ertapenem 1 gm/ Sodium Chloride 55 ml @ 110 mls/hr Q24H IV 07/08/18 09:00 07/13/18 08:59 07/09/18 09:03 Lidocaine HCl (Xylocaine 1% 30ml) 30 ml ONCE PRN INJ central line placement 07/08/18 09:30 07/09/18 23:59 Morphine Sulfate (Morphine Sulfate) 2 mg Q4H PRN IVP Severe Pain (Pain Scale 7-10) 07/08/18 06:30 07/15/18 06:29 Ondansetron HCl (Zofran) 4 mg Q6H PRN IVP Nausea & Vomiting 07/08/18 06:30 08/07/18 06:29 Pantoprazole (Protonix) 40 mg EVERY 12 HOURS IVP 07/08/18 21:00 08/07/18 20:59 07/09/18 09:02 Polyethylene Glycol (Miralax) 17 gm DAILYPRN PRN ORAL Constipation 07/08/18 06:30 08/07/18 06:29 Sodium Chloride 1,000 ml @ 50 mls/hr Q20H IVLG 07/09/18 10:15 08/08/18 10:14 Vancomycin HCl (Vanco rx to dose) 1 ea DAILY PRN MISC PER RX PROTOCOL 07/08/18 07:45 08/07/18 07:44 Vancomycin/Sodium Chloride 250 ml @ 166.667 mls/hr Q12HR@1000,2200 IVPB 07/08/18 22:00 07/13/18 21:59 07/09/18 09:20 Assessment/Plan Problem List: (1) Dementia ICD Codes: F03.90 - Unspecified dementia without behavioral disturbance SNOMED: 45159074 (2) Encephalopathy due to metabolic factor or toxin SNOMED: 519089844 Status: unchanged Assessment/Plan haldol prn head 20 degree provided Bartolome Cain MD Jul 09, 2018 11:06
--- NOTE | 2018-07-09 11:11 | Consultation ---
Consult Note Consult Note ID # [id number] Thuan Marti MD Jul 09, 2018 11:11
--- NOTE | 2018-07-09 11:21 | Cardiac Electrophysiology PN ---
Assessment/Plan Assessment/Plan 1. Hypotension due to likely septic shock. Off Levophed.On iv Abx Echocardiogram EF 55% 2. Bradycardia, heart rate is improving. Keep the patient off any sinus or AV ac blocking agents. 3. History of DVT. The patient was on Coumadin. INR was 5.5. S/P FFP. Current duplex is negative for DVT. 4. History of respiratory failure, now off BiPAP. 5. Pleural effusion. Consider thoracentesis once coagulopathy corrected. Subjective Subjective In ICU off BIPAP. No CP. In SR Objective Last 24 Hour Vital Signs Date Time Temp Pulse Resp B/P (MAP) Pulse Ox O2 Delivery O2 Flow Rate FiO2 07/09/18 09:00 67 18 148/71 (96) 99 07/09/18 08:28 150/70 07/09/18 08:00 69 07/09/18 08:00 Nasal Cannula 2.0 07/09/18 08:00 71 20 150/70 (96) 96 07/09/18 07:05 Nasal Cannula 2.0 28 07/09/18 07:05 93 Nasal Cannula 2.0 28 07/09/18 07:00 97.4 62 26 140/70 (93) 92 07/09/18 06:00 68 17 133/70 (91) 95 07/09/18 05:41 65 16 98 2.0 28 07/09/18 05:36 64 18 100 Facial 30 07/09/18 05:00 60 18 133/70 (91) 98 07/09/18 04:00 Nasal Cannula 2.0 07/09/18 04:00 66 07/09/18 04:00 97.7 62 16 146/65 (92) 100 07/09/18 03:00 62 14 153/80 (104) 100 07/09/18 02:40 63 17 98 Facial 30 07/09/18 02:00 62 16 127/66 (86) 99 07/09/18 01:18 62 17 100 Facial 30 07/09/18 01:00 67 16 132/69 (90) 99 07/09/18 00:00 97.8 69 16 125/60 (81) 99 07/09/18 00:00 Nasal Cannula 2.0 07/08/18 23:29 72 17 96 Facial 30 07/08/18 23:00 72 16 127/62 (83) 96 07/08/18 22:00 72 18 128/75 (92) 96 07/08/18 21:05 72 16 99 28 07/08/18 21:00 72 18 131/75 (93) 96 07/08/18 20:00 97.6 72 17 127/62 (83) 96 07/08/18 20:00 72 07/08/18 20:00 Nasal Cannula 2.0 07/08/18 19:18 Nasal Cannula 2.0 28 07/08/18 19:18 99 Nasal Cannula 2.0 28 07/08/18 19:17 70 19 Nasal Cannula 2.0 28 07/08/18 19:15 70 19 2.0 28 07/08/18 18:00 65 16 121/77 (92) 99 07/08/18 17:01 67 16 100 Facial 35 07/08/18 17:00 66 16 125/66 (85) 99 07/08/18 16:00 97.8 64 15 115/52 (73) 100 07/08/18 16:00 62 07/08/18 16:00 Bi-pap 07/08/18 16:00 15.0 100 07/08/18 15:26 62 16 100 Facial 35 07/08/18 15:00 60 16 133/77 (95) 99 07/08/18 14:00 61 14 106/63 (77) 100 07/08/18 13:00 62 14 81/53 (62) 100 07/08/18 12:30 Bi-pap 07/08/18 12:30 72 17 95 Facial 35 07/08/18 12:00 97.8 75 20 103/59 (74) 97 07/08/18 12:00 35 07/08/18 12:00 77 Intake and Output 07/08/18 07/09/18 19:00 07:00 Intake Total 1865.2 ml 1350.0 ml Output Total 1040 ml 480 ml Balance 825.2 ml 870.0 ml Intake IV Total 1235.2 ml 1350.0 ml Blood Product 600 ml Other 30 ml Output Urine Total 1040 ml 480 ml Laboratory Tests Test 07/08/18 12:45 07/08/18 19:00 07/09/18 00:20 07/09/18 04:30 Lactic Acid Level 2.30 mmol/L (0.4-2.0) H 1.20 mmol/L (0.4-2.0) Miscellaneous Test 2 Pending Random Amikacin Level 16.3 ug/mL White Blood Count 14.9 K/UL (4.8-10.8) #H Red Blood Count 2.98 M/UL (4.70-6.10) L Hemoglobin 9.8 G/DL (14.2-18.0) L Hematocrit 28.1 % (42.0-52.0) L Mean Corpuscular Volume 94 FL (80-99) Mean Corpuscular Hemoglobin 32.9 PG (27.0-31.0) H Mean Corpuscular Hemoglobin Concent 34.9 G/DL (32.0-36.0) Red Cell Distribution Width 14.4 % (11.6-14.8) Platelet Count 252 K/UL (150-450) Mean Platelet Volume 7.6 FL (6.5-10.1) Neutrophils (%) (Auto) % (45.0-75.0) Lymphocytes (%) (Auto) % (20.0-45.0) Monocytes (%) (Auto) % (1.0-10.0) Eosinophils (%) (Auto) % (0.0-3.0) Basophils (%) (Auto) % (0.0-2.0) Differential Total Cells Counted 100 Neutrophils % (Manual) 90 % (45-75) H Lymphocytes % (Manual) 7 % (20-45) L Monocytes % (Manual) 3 % (1-10) Eosinophils % (Manual) 0 % (0-3) Basophils % (Manual) 0 % (0-2) Band Neutrophils 0 % (0-8) Platelet Estimate Adequate Platelet Morphology Normal Hypochromasia 2+ Anisocytosis 1+ Sodium Level 138 MMOL/L (136-145) Potassium Level 4.3 MMOL/L (3.5-5.1) Chloride Level 102 MMOL/L (98-107) Carbon Dioxide Level 36 MMOL/L (21-32) H Anion Gap 0 mmol/L (5-15) L Blood Urea Nitrogen 46 mg/dL (7-18) H Creatinine 1.1 MG/DL (0.55-1.30) Estimat Glomerular Filtration Rate mL/min (>60) Glucose Level 68 MG/DL (74-106) L Calcium Level 8.9 MG/DL (8.5-10.1) Total Bilirubin 0.4 MG/DL (0.2-1.0) Direct Bilirubin 0.1 MG/DL (0.0-0.3) Aspartate Amino Transf (AST/SGOT) 21 U/L (15-37) Alanine Aminotransferase (ALT/SGPT) 18 U/L (12-78) Alkaline Phosphatase 151 U/L (46-116) H Troponin I 0.015 ng/mL (0.000-0.056) Total Protein 6.4 G/DL (6.4-8.2) Albumin 2.3 G/DL (3.4-5.0) L Globulin 4.1 g/dL Albumin/Globulin Ratio 0.6 (1.0-2.7) L Test 07/09/18 11:00 Prothrombin Time Pending Prothromb Time International Ratio Pending Activated Partial Thromboplast Time Pending Microbiology Date/Time Source Procedure Growth Status 07/08/18 02:48 Blood Blood Culture - Preliminary NO GROWTH AFTER 24 HOURS Resulted 07/08/18 02:33 Blood Blood Culture - Preliminary NO GROWTH AFTER 24 HOURS Resulted 07/08/18 05:30 Nose Influenza Types A,B Antigen (VICK) - Final Complete 07/08/18 14:55 Indwelling Cath Urine Culture - Preliminary Gram Negative Bacillus 1 Resulted 07/08/18 02:33 Urine,Clean Catch Urine Culture - Preliminary Resulted 07/08/18 07:24 Rectum - Preliminary Resulted Objective HEAD AND NECK: Shows no JVD. LUNGS: Coarse rhonchi. CARDIOVASCULAR: Regular S1 and S2 with no gallop or murmur. ABDOMEN: Soft. EXTREMITIES: 1+ pitting edema. Gerson Isaacs MD Jul 09, 2018 11:21
[2018-07-09 11:28] LABS: INR 3.3 (0.9-1.1)
--- NOTE | 2018-07-09 11:35 | Diagnostic Imaging Report ---
Indication: Dyspnea Comparison: 07/08/2018 A single view chest radiograph was obtained. Findings: Pulmonary edema is present with prominent vascularity and heart size and suspected bilateral pleural effusions. Some improvement in degree of interstitial edema suspected. IMPRESSION: CHF with some interval improvement
--- NOTE | 2018-07-09 18:19 | Internal Med Progress Note ---
Subjective Date of Service: Jul 09, 2018 Physician Name Dale Hale Attending Physician Elton Infante MD Current Medications Medications (Trade) Dose Ordered Sig/Jorge Route PRN Reason Start Time Stop Time Status Last Admin Dose Admin Acetaminophen (Tylenol) 650 mg Q4H PRN ORAL fever (temp>100.5F) 07/08/18 06:30 08/07/18 06:29 Albuterol/ Ipratropium (Albuterol/ Ipratropium) 3 ml Q4H PRN HHN Shortness of Breath 07/08/18 06:30 07/13/18 06:29 07/09/18 13:13 Ertapenem 1 gm/ Sodium Chloride 55 ml @ 110 mls/hr Q24H IV 07/08/18 09:00 07/13/18 08:59 07/09/18 09:03 Lidocaine HCl (Xylocaine 1% 30ml) 30 ml ONCE PRN INJ central line placement 07/08/18 09:30 07/09/18 23:59 Morphine Sulfate (Morphine Sulfate) 2 mg Q4H PRN IVP Severe Pain (Pain Scale 7-10) 07/08/18 06:30 07/15/18 06:29 Ondansetron HCl (Zofran) 4 mg Q6H PRN IVP Nausea & Vomiting 07/08/18 06:30 08/07/18 06:29 Pantoprazole (Protonix) 40 mg EVERY 12 HOURS IVP 07/08/18 21:00 08/07/18 20:59 07/09/18 09:02 Polyethylene Glycol (Miralax) 17 gm DAILYPRN PRN ORAL Constipation 07/08/18 06:30 08/07/18 06:29 Sodium Chloride 1,000 ml @ 50 mls/hr Q20H IVLG 07/09/18 10:15 08/08/18 10:14 07/09/18 11:44 Vancomycin HCl (Vanco rx to dose) 1 ea DAILY PRN MISC PER RX PROTOCOL 07/08/18 07:45 08/07/18 07:44 Vancomycin/Sodium Chloride 250 ml @ 166.667 mls/hr Q12HR@1000,2200 IVPB 07/08/18 22:00 07/13/18 21:59 07/09/18 09:20 Allergies: Coded Allergies: PENICILLINS (Verified Allergy, Intermediate, 07/08/18) ROS Limited/Unobtainable: Yes Subjective 88 YO M admitted with altered mental status. Now septic shock. Cover for Int [facility]-Dr Infante ICU. Tolerating nasal canula Objective Last Vital Signs Date Time Temp Pulse Resp B/P (MAP) Pulse Ox O2 Delivery O2 Flow Rate FiO2 07/09/18 17:00 98.1 72 21 152/80 (104) 93 07/09/18 16:00 Nasal Cannula 2.0 07/09/18 13:27 28 General Appearance: WD/WN, moderate distress EENT: PERRL/EOMI, normal ENT inspection Neck: non-tender, normal alignment, supple, normal inspection Cardiovascular: normal peripheral pulses, regular rhythm, no gallop/murmur, no JVD, bradycardia Respiratory/Chest: chest wall non-tender, crackles/rales, rhonchi - bilaterally , expiratory wheezing Abdomen: normal bowel sounds, non tender, soft, no organomegaly, no mass Extremities: normal range of motion, non-tender 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-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 Skin: normal pigmentation Laboratory Tests Test 07/08/18 19:00 07/09/18 00:20 07/09/18 04:30 07/09/18 11:00 Lactic Acid Level 1.20 mmol/L (0.4-2.0) Miscellaneous Test 2 Pending Random Amikacin Level 16.3 ug/mL White Blood Count 14.9 K/UL (4.8-10.8) #H Red Blood Count 2.98 M/UL (4.70-6.10) L Hemoglobin 9.8 G/DL (14.2-18.0) L Hematocrit 28.1 % (42.0-52.0) L Mean Corpuscular Volume 94 FL (80-99) Mean Corpuscular Hemoglobin 32.9 PG (27.0-31.0) H Mean Corpuscular Hemoglobin Concent 34.9 G/DL (32.0-36.0) Red Cell Distribution Width 14.4 % (11.6-14.8) Platelet Count 252 K/UL (150-450) Mean Platelet Volume 7.6 FL (6.5-10.1) Neutrophils (%) (Auto) % (45.0-75.0) Lymphocytes (%) (Auto) % (20.0-45.0) Monocytes (%) (Auto) % (1.0-10.0) Eosinophils (%) (Auto) % (0.0-3.0) Basophils (%) (Auto) % (0.0-2.0) Differential Total Cells Counted 100 Neutrophils % (Manual) 90 % (45-75) H Lymphocytes % (Manual) 7 % (20-45) L Monocytes % (Manual) 3 % (1-10) Eosinophils % (Manual) 0 % (0-3) Basophils % (Manual) 0 % (0-2) Band Neutrophils 0 % (0-8) Platelet Estimate Adequate Platelet Morphology Normal Hypochromasia 2+ Anisocytosis 1+ Sodium Level 138 MMOL/L (136-145) Potassium Level 4.3 MMOL/L (3.5-5.1) Chloride Level 102 MMOL/L (98-107) Carbon Dioxide Level 36 MMOL/L (21-32) H Anion Gap 0 mmol/L (5-15) L Blood Urea Nitrogen 46 mg/dL (7-18) H Creatinine 1.1 MG/DL (0.55-1.30) Estimat Glomerular Filtration Rate mL/min (>60) Glucose Level 68 MG/DL (74-106) L Calcium Level 8.9 MG/DL (8.5-10.1) Total Bilirubin 0.4 MG/DL (0.2-1.0) Direct Bilirubin 0.1 MG/DL (0.0-0.3) Aspartate Amino Transf (AST/SGOT) 21 U/L (15-37) Alanine Aminotransferase (ALT/SGPT) 18 U/L (12-78) Alkaline Phosphatase 151 U/L (46-116) H Troponin I 0.015 ng/mL (0.000-0.056) Total Protein 6.4 G/DL (6.4-8.2) Albumin 2.3 G/DL (3.4-5.0) L Globulin 4.1 g/dL Albumin/Globulin Ratio 0.6 (1.0-2.7) L Prothrombin Time 32.7 SEC (9.30-11.50) H Prothromb Time International Ratio 3.3 (0.9-1.1) H Activated Partial Thromboplast Time 51 SEC (23-33) H Microbiology Date/Time Source Procedure Growth Status 07/08/18 02:48 Blood Blood Culture - Preliminary NO GROWTH AFTER 24 HOURS Resulted 07/08/18 02:33 Blood Blood Culture - Preliminary Resulted 07/08/18 05:30 Nose Influenza Types A,B Antigen (VICK) - Final Complete 07/08/18 14:55 Indwelling Cath Urine Culture - Preliminary Gram Negative Bacillus 1 Resulted 07/08/18 02:33 Urine,Clean Catch Urine Culture - Preliminary Resulted 07/08/18 07:24 Rectum - Preliminary Resulted Intake and Output 07/08/18 07/09/18 18:59 06:59 Intake Total 1865.2 ml 1250.0 ml Output Total 1040 ml 380 ml Balance 825.2 ml 870.0 ml Intake IV Total 1235.2 ml 1250.0 ml Blood Product 600 ml Other 30 ml Output Urine Total 1040 ml 380 ml Assessment/Plan Problem List: (1) Septic shock Assessment & Plan: continue ertapenem and vanco per ID (2) Pneumonia Assessment & Plan: Bilateral. See pulmonary note. Cont ertapenem and vanco (3) Altered level of consciousness (4) UTI (urinary tract infection) Assessment & Plan: Gram neg tong. Continue ertapenem per ID Status: not improved Dale Hale MD Jul 09, 2018 18:18
--- NOTE | 2018-07-09 22:00 | Consultation ---
DATE OF CONSULTATION: 07/09/2018 INFECTIOUS DISEASE CONSULTATION CONSULTING PHYSICIAN: Thuan Marti M.D. REQUESTING PHYSICIANS: 1. Gertrudis Quintanilla M.D. 2. Elton Infante M.D. REASON FOR CONSULTATION: Evaluation of the patient for sepsis and antibiotic management. HISTORY OF PRESENT ILLNESS: The patient is an 88-year-old male with multiple medical problems, as listed below, who was admitted to this medical center due to the hypertension. The patient was admitted to the ICU. The patient's blood pressure improved. The patient was found to have leukocytosis. At the time of admission, the patient had a fever of 101. Cultures have been sent. Infectious Disease consultation has been requested for further evaluation of the patient. The patient overall is a poor historian. Mentioned to have a Sales catheter for six months, however, was placed in the emergency room. The patient is now complaining of significant cough and abdominal pain. PAST MEDICAL HISTORY: 1. CHF. 2. Hypertension. 3. Gout. 4. Depression. 5. Anemia. 6. History of tongue cancer. MEDICATIONS: Amikacin, vancomycin, and ertapenem. ALLERGIES: Penicillin. FAMILY HISTORY: Not contributing. REVIEW OF SYSTEMS: Limited. The patient is alert and awake x2 (does not know what year it is). PHYSICAL EXAMINATION: VITAL SIGNS: Temperature 101, T-max 101, pulse 86, respiratory rate 18, and blood pressure 148/71. HEENT: No pale conjunctivae. No icterus. NECK: No lymphadenopathy. CHEST: Clear. HEART: S1 and S2. ABDOMEN: Soft. EXTREMITIES: No cyanosis. NEUROLOGIC: Awake and alert x2. LABORATORY DATA: White blood cells 14.9, hemoglobin 9.8 and platelets 252,000. UA, too numerous to count white blood cells and too numerous to count red blood cells. BUN 43 and creatinine 1.1. ALT and AST unremarkable. Alkaline phosphatase 151. Urine culture is growing gram-negative rods, 70,000 to 80,000. Influenza screen negative. Blood culture is pending. Chest x-ray, bilateral pulmonary infiltrates and left pleural effusion. ASSESSMENT: The patient is an 88-year-old male with: 1. Fever. 2. Leukocytosis. 3. Probable urinary tract infection. 4. Probable pneumonia/pleural effusion. PLAN: 1. We will continue the patient on IV vancomycin and ertapenem for now, day #2. 2. Hold IV amikacin. 3. Monitor CBC. 4. Monitor BMP. 5. Monitor cultures (blood, sputum, urine). 6. Monitor x-rays. 7. Thoracocentesis per Pulmonary. 8. Based on the patient's clinical course and labs, we will do further recommendations. Thuan Marti M.D. DR: RUSSELL JOB#: [id number] CC:
--- NOTE | 2018-07-09 22:56 | General Progress Note ---
Assessment/Plan Problem List: (1) Dementia ICD Codes: F03.90 - Unspecified dementia without behavioral disturbance SNOMED: 57915569 (2) Encephalopathy due to metabolic factor or toxin SNOMED: 812966152 Status: stable, progressing Assessment/Plan haldol prn head 30degree provided ro Subjective Date patient seen: Jul 09, 2018 Neurologic/Psychiatric: Reports: anxiety Allergies: Coded Allergies: PENICILLINS (Verified Allergy, Intermediate, 07/08/18) Subjective more alert Objective Last 24 Hour Vital Signs Date Time Temp Pulse Resp B/P (MAP) Pulse Ox O2 Delivery O2 Flow Rate FiO2 07/09/18 19:18 95 Nasal Cannula 3.0 32 07/09/18 19:18 Nasal Cannula 3.0 32 07/09/18 19:00 71 16 150/80 (103) 92 07/09/18 18:00 74 16 145/76 (99) 97 07/09/18 17:00 98.1 72 21 152/80 (104) 93 07/09/18 16:00 73 07/09/18 16:00 Nasal Cannula 2.0 07/09/18 16:00 71 12 148/79 (102) 93 07/09/18 15:00 70 19 139/67 (91) 93 07/09/18 14:00 72 11 151/73 (99) 94 07/09/18 13:27 67 20 100 Nasal Cannula 2.0 28 07/09/18 13:13 72 21 93 Nasal Cannula 3.0 32 07/09/18 13:00 76 21 159/61 (93) 94 07/09/18 12:25 2.0 07/09/18 12:00 Nasal Cannula 2.0 07/09/18 12:00 68 07/09/18 12:00 97.6 72 20 152/66 (94) 88 07/09/18 11:00 71 19 148/72 (97) 99 07/09/18 10:00 70 19 144/67 (92) 99 07/09/18 09:00 67 18 148/71 (96) 99 07/09/18 08:28 150/70 07/09/18 08:00 69 07/09/18 08:00 Nasal Cannula 2.0 07/09/18 08:00 71 20 150/70 (96) 96 07/09/18 07:05 Nasal Cannula 2.0 28 07/09/18 07:05 93 Nasal Cannula 2.0 28 07/09/18 07:05 70 14 Nasal Cannula 2.0 28 07/09/18 07:00 97.4 62 26 140/70 (93) 92 07/09/18 06:00 68 17 133/70 (91) 95 07/09/18 05:41 65 16 98 2.0 28 07/09/18 05:36 64 18 100 Facial 30 07/09/18 05:00 60 18 133/70 (91) 98 07/09/18 04:00 Nasal Cannula 2.0 07/09/18 04:00 66 07/09/18 04:00 97.7 62 16 146/65 (92) 100 07/09/18 03:00 62 14 153/80 (104) 100 07/09/18 02:40 63 17 98 Facial 30 07/09/18 02:00 62 16 127/66 (86) 99 07/09/18 01:18 62 17 100 Facial 30 07/09/18 01:00 67 16 132/69 (90) 99 07/09/18 00:00 97.8 69 16 125/60 (81) 99 07/09/18 00:00 Nasal Cannula 2.0 07/08/18 23:29 72 17 96 Facial 30 07/08/18 23:00 72 16 127/62 (83) 96 Intake and Output 07/08/18 07/09/18 19:00 07:00 Intake Total 1865.2 ml 1350.0 ml Output Total 1040 ml 480 ml Balance 825.2 ml 870.0 ml Intake IV Total 1235.2 ml 1350.0 ml Blood Product 600 ml Other 30 ml Output Urine Total 1040 ml 480 ml Laboratory Tests 07/09/18 00:20: Miscellaneous Test 2 [Pending], Random Amikacin Level 16.3 07/09/18 04:30: White Blood Count 14.9#H, Red Blood Count 2.98L, Hemoglobin 9.8L, Hematocrit 28.1L, Mean Corpuscular Volume 94, Mean Corpuscular Hemoglobin 32.9H, Mean Corpuscular Hemoglobin Concent 34.9, Red Cell Distribution Width 14.4, Platelet Count 252, Mean Platelet Volume 7.6, Neutrophils (%) (Auto) , Lymphocytes (%) ( Auto) , Monocytes (%) (Auto) , Eosinophils (%) (Auto) , Basophils (%) (Auto) , Differential Total Cells Counted 100, Neutrophils % (Manual) 90H, Lymphocytes % (Manual) 7L, Monocytes % (Manual) 3, Eosinophils % (Manual) 0, Basophils % ( Manual) 0, Band Neutrophils 0, Platelet Estimate Adequate, Platelet Morphology Normal, Hypochromasia 2+, Anisocytosis 1+, Sodium Level 138, Potassium Level 4.3 , Chloride Level 102, Carbon Dioxide Level 36H, Anion Gap 0L, Blood Urea Nitrogen 46H, Creatinine 1.1, Estimat Glomerular Filtration Rate , Glucose Level 68L, Calcium Level 8.9, Total Bilirubin 0.4, Direct Bilirubin 0.1, Aspartate Amino Transf (AST/SGOT) 21, Alanine Aminotransferase (ALT/SGPT) 18, Alkaline Phosphatase 151H, Troponin I 0.015, Total Protein 6.4, Albumin 2.3L, Globulin 4.1, Albumin/Globulin Ratio 0.6L 07/09/18 11:00: Prothrombin Time 32.7H, Prothromb Time International Ratio 3.3H, Activated Partial Thromboplast Time 51H 07/09/18 21:10: Vancomycin Level Trough 15.6H Height (Feet): 6 Height (Inches): 2.00 Weight (Pounds): 205 General Appearance: alert, confused Bartolome Martin MD Jul 09, 2018 22:56
[2018-07-09] MEDS ORDERED: Haloperidol 5mg/ml Inj IM PRN (23:00)
[2018-07-10] VITALS (19 sets, daily range): BP systolic 108–163; BP diastolic 58–82
[2018-07-10 05:15] LABS: HEMATOCRIT 34.1 % (42.0-52.0); HEMOGLOBIN 11.4 G/DL (14.2-18.0); MEAN CORPUSCULAR VOLUME 95 FL (80-99); PLATELET COUNT 353 K/UL (150-450); RED CELL DISTRIBUTION WIDTH 14.1 % (11.6-14.8); WHITE BLOOD COUNT 13.2 K/UL (4.8-10.8)
[2018-07-10 05:59] LABS: ALANINE AMINOTRANSFERASE 20 U/L (12-78); ALBUMIN 2.4 G/DL (3.4-5.0); ALBUMIN/GLOBULIN RATIO 0.5 (1.0-2.7); ALKALINE PHOSPHATASE 161 U/L (46-116); ANION GAP 1 mmol/L (5-15); ASPARTATE AMINO TRANSFERASE 22 U/L (15-37); BILIRUBIN,TOTAL 0.4 MG/DL (0.2-1.0); BLOOD UREA NITROGEN 44 mg/dL (7-18); CALCIUM 9.1 MG/DL (8.5-10.1); CARBON DIOXIDE 36 MMOL/L (21-32); CHLORIDE 104 MMOL/L (98-107); POTASSIUM 3.9 MMOL/L (3.5-5.1); SODIUM 141 MMOL/L (136-145)
[2018-07-10] MEDS ORDERED: Albuterol/Ipratropium 3ml neb HHN PRN ×2 (06:30→18:30)
[2018-07-10] MEDS ORDERED: Miralax 17gm pkt ORAL PRN ×2 (06:30→16:30)
[2018-07-10] MEDS ORDERED: Morphine Sulfate 4mg/ml Inj (IV/IM USE ONLY) IVP PRN (06:30)
--- NOTE | 2018-07-10 08:15 | Cardiology Report ---
APPROVED REPORT EXAM: Two-dimensional and M-mode echocardiogram with Doppler and color Doppler. INDICATION Left Ventricular Function M-Mode DIMENSIONS IVSd1.9 (0.7-1.1cm)Left Atrium (MM)3.9 (1.6-4.0cm) LVDd4.4 (3.5-5.6cm)Aortic Root4.1 (2.0-3.7cm) PWd1.5 (0.7-1.1cm)Aortic Cusp Exc.2.4 (1.5-2.0cm) LVDs2.5 (2.5-4.0cm) PWs2.6 cm Technically difficult study due to patient's breathing. Study quality precludes accurate assessment of regional wall motion. Normal left ventricular chamber size, systolic function and wall motion. Left ventricular ejection fraction estimated to be 55 %. Mild left ventricular hypertrophy. Large pleural effusion. Mild left atrial enlargement. Mild right ventricular enlargement. Right atrial chamber size is within normal limits. Mild focal aortic valve sclerosis with adequate cusp excursion. Mildly thickened mitral valve leaflets with normal excursion. Mild mitral annulus and aortic root calcification. Normal pulmonic valve structure. Normal tricuspid valve structure. IVC dilated at 2.7 cm without physiological collapse, suggestive of increased RA pressure. A color flow and spectral Doppler study was performed and revealed: Trace aortic insufficiency. Mild mitral regurgitation. Mitral diastolic velocities suggest mild left ventricular diastolic dysfunction (Grade I). Moderate tricuspid regurgitation. Tricuspid systolic velocities suggests peak right ventricular systolic pressure of 56 mmHg, consistent with moderate pulmonary hypertension. Mild pulmonic regurgitation present.
--- NOTE | 2018-07-10 08:18 | Cardiology Report ---
APPROVED REPORT EKG Measurement Heart [id number] Sinus rhythm with 1st degree AV block Right bundle branch block Left anterior fascicular block Bifascicular block T wave abnormality, consider lateral ischemia Abnormal ECG
--- NOTE | 2018-07-10 08:26 | Cardiology Report ---
APPROVED REPORT EKG Measurement Heart [id number] [id number] Sinus rhythm with 1st degree AV block with occasional, and consecutive premature ventricular complexes Right bundle branch block Left anterior fascicular block Bifascicular block Abnormal ECG
[2018-07-10] MEDS ORDERED: Pantoprazole Inj IVP SCH (09:00)
[2018-07-10] MEDS ORDERED: Ertapenem 1 GM in NS 55 ML IV SCH (09:00)
--- NOTE | 2018-07-10 09:32 | Pulmonology Progress Note ---
Assessment/Plan Problems: (1) Septic shock (2) Pulmonary edema (3) Pneumonia (4) ATN (acute tubular necrosis) (5) Feeding by G-tube (6) Dementia Assessment/Plan WBC still high afebrile continue antibiotics dc IV fluids CXR reviewed, some improvement one dose of laxis cxr in am Subjective ROS Limited/Unobtainable: No Interval Events: doing ok, no new complains Allergies: Coded Allergies: PENICILLINS (Verified Allergy, Intermediate, 07/08/18) Objective Last 24 Hour Vital Signs Date Time Temp Pulse Resp B/P (MAP) Pulse Ox O2 Delivery O2 Flow Rate FiO2 07/10/18 05:00 70 18 160/80 (106) 96 07/10/18 04:00 97.7 70 18 163/81 (108) 96 07/10/18 04:00 71 07/10/18 04:00 Nasal Cannula 2.0 07/10/18 03:00 68 16 145/70 (95) 93 07/10/18 02:00 66 16 149/69 (95) 91 07/10/18 01:00 68 16 160/79 (106) 91 07/10/18 00:00 Nasal Cannula 2.0 07/10/18 00:00 97.8 71 16 148/80 (102) 91 07/10/18 00:00 69 07/09/18 23:00 71 16 150/80 (103) 91 07/09/18 22:00 70 16 155/77 (103) 92 07/09/18 21:00 71 16 163/76 (105) 93 07/09/18 20:00 71 17 150/80 (103) 92 07/09/18 20:00 72 07/09/18 20:00 Nasal Cannula 2.0 07/09/18 19:18 95 Nasal Cannula 3.0 32 07/09/18 19:18 Nasal Cannula 3.0 32 07/09/18 19:00 71 16 150/80 (103) 92 07/09/18 18:00 74 16 145/76 (99) 97 07/09/18 17:00 98.1 72 21 152/80 (104) 93 07/09/18 16:00 73 07/09/18 16:00 Nasal Cannula 2.0 07/09/18 16:00 71 12 148/79 (102) 93 07/09/18 15:00 70 19 139/67 (91) 93 07/09/18 14:00 72 11 151/73 (99) 94 07/09/18 13:27 67 20 100 Nasal Cannula 2.0 28 07/09/18 13:13 72 21 93 Nasal Cannula 3.0 32 07/09/18 13:00 76 21 159/61 (93) 94 07/09/18 12:25 2.0 07/09/18 12:00 Nasal Cannula 2.0 07/09/18 12:00 68 07/09/18 12:00 97.6 72 20 152/66 (94) 88 07/09/18 11:00 71 19 148/72 (97) 99 07/09/18 10:00 70 19 144/67 (92) 99 Intake and Output 07/09/18 07/10/18 19:00 07:00 Intake Total 1170.334 ml 1100.000 ml Output Total 650 ml 510 ml Balance 520.334 ml 590.000 ml Intake Free Water 60 ml IV Total 1050.334 ml 650.000 ml Tube Feeding 120 ml 390 ml Output Urine Total 650 ml 510 ml General Appearance: WD/WN HEENT: normocephalic, atraumatic Respiratory/Chest: chest wall non-tender, lungs clear Cardiovascular: normal peripheral pulses, normal rate Abdomen: normal bowel sounds, soft, non tender Genitourinary: normal external genitalia Extremities: no cyanosis Neurologic/Psychiatric: sleep medicine physician II-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 Lymphatic: no neck adenopathy Microbiology Date/Time Source Procedure Growth Status 07/08/18 02:48 Blood Blood Culture - Preliminary Gram Negative Bacillus 1 Resulted 07/08/18 02:33 Blood Blood Culture - Preliminary Gram Negative Bacillus 1 Resulted 07/08/18 07:24 Nasal Nares MRSA Culture - Final Staphylococcus Aureus - Mrsa Complete 07/08/18 05:30 Nose Influenza Types A,B Antigen (VICK) - Final Complete 07/08/18 14:55 Indwelling Cath Urine Culture - Final Escherichia Coli Complete 07/08/18 02:33 Urine,Clean Catch Urine Culture - Preliminary Gram Negative Bacillus 1 Gram Negative Bacillus 2 Resulted 07/08/18 07:24 Rectum - Final NO CARBAPENEM-RESISTANT ENTEROBACTERI... Complete 07/08/18 07:24 Rectal Mucosa VRE Culture - Final NO VANCOMYCIN RESISTANT ENTEROCOCCUS ... Complete Laboratory Tests 07/09/18 11:00: Prothrombin Time 32.7H, Prothromb Time International Ratio 3.3H, Activated Partial Thromboplast Time 51H 07/09/18 21:10: Vancomycin Level Trough 15.6H 07/10/18 04:30: Prothrombin Time 29.8H, Prothromb Time International Ratio 3.0H, Activated Partial Thromboplast Time 48H, White Blood Count 13.2H, Red Blood Count 3.60L, Hemoglobin 11.4L, Hematocrit 34.1L, Mean Corpuscular Volume 95, Mean Corpuscular Hemoglobin 31.6H, Mean Corpuscular Hemoglobin Concent 33.4, Red Cell Distribution Width 14.1, Platelet Count 353, Mean Platelet Volume 7.1, Neutrophils (%) (Auto) , Lymphocytes (%) (Auto) , Monocytes (%) (Auto) , Eosinophils (%) (Auto) , Basophils (%) (Auto) , Differential Total Cells Counted 100, Neutrophils % (Manual) 85H, Lymphocytes % (Manual) 6L, Monocytes % (Manual) 8, Eosinophils % (Manual) 1, Basophils % (Manual) 0, Band Neutrophils 0 , Platelet Estimate Adequate, Platelet Morphology Normal, Hypochromasia 1+, Anisocytosis 1+, Sodium Level 141, Potassium Level 3.9, Chloride Level 104, Carbon Dioxide Level 36H, Anion Gap 1L, Blood Urea Nitrogen 44H, Creatinine 1.0 , Estimat Glomerular Filtration Rate , Glucose Level 88, Calcium Level 9.1, Total Bilirubin 0.4, Aspartate Amino Transf (AST/SGOT) 22, Alanine Aminotransferase (ALT/SGPT) 20, Alkaline Phosphatase 161H, Pro-B-Type Natriuretic Peptide 80643Y, Total Protein 7.2, Albumin 2.4L, Globulin 4.8, Albumin/Globulin Ratio 0.5L Current Medications Medications (Trade) Dose Ordered Sig/Jorge Route PRN Reason Start Time Stop Time Status Last Admin Dose Admin Acetaminophen (Tylenol) 650 mg Q4H PRN ORAL fever (temp>100.5F) 07/10/18 06:30 08/07/18 06:29 Albuterol/ Ipratropium (Albuterol/ Ipratropium) 3 ml Q4H PRN HHN Shortness of Breath 07/10/18 06:30 07/13/18 06:29 Ertapenem 1 gm/ Sodium Chloride 55 ml @ 110 mls/hr Q24H IV 07/10/18 09:00 07/13/18 08:59 07/10/18 08:58 Furosemide (Lasix) 20 mg ONCE ONCE IV 07/10/18 09:30 07/10/18 09:31 UNV Haloperidol Lactate (Haldol) 5 mg Q6H PRN IM Agitation 07/10/18 11:00 08/08/18 22:59 Morphine Sulfate (Morphine Sulfate) 2 mg Q4H PRN IVP Severe Pain (Pain Scale 7-10) 07/10/18 06:30 07/15/18 06:29 Ondansetron HCl (Zofran) 4 mg Q6H PRN IVP Nausea & Vomiting 07/10/18 06:30 08/07/18 06:29 Pantoprazole (Protonix) 40 mg EVERY 12 HOURS IVP 07/10/18 09:00 08/07/18 20:59 07/10/18 08:57 Polyethylene Glycol (Miralax) 17 gm DAILYPRN PRN ORAL Constipation 07/10/18 06:30 08/07/18 06:29 Vancomycin HCl (Vanco rx to dose) 1 ea DAILY PRN MISC PER RX PROTOCOL 07/10/18 09:00 08/07/18 07:44 Vancomycin/Sodium Chloride 250 ml @ 166.667 mls/hr Q12HR@1000,2200 IVPB 07/10/18 10:00 07/13/18 21:59 Gertrudis Quintanilla MD Jul 10, 2018 09:31
[2018-07-10] MEDS ORDERED: Vancomycin 750mg/NS 250ml 250 ML IVPB SCH (10:00)
[2018-07-10] MEDS ORDERED: Haloperidol 5mg/ml Inj IM PRN ×2 (11:00→17:00)
--- NOTE | 2018-07-10 11:39 | Diagnostic Imaging Report ---
Indication: Dyspnea Comparison: 07/09/2018 A single view chest radiograph was obtained. Findings: Vascular congestion demonstrated with cardiomegaly. Left pleural effusion may be present. Dense left basilar consolidation or atelectasis likely present. IMPRESSION: No change from the prior day
[2018-07-10] MEDS ORDERED: AMIKACIN IV SCH (12:00)
[2018-07-10] MEDS ORDERED: NS IV SCH (12:00)
--- NOTE | 2018-07-10 13:38 | General Progress Note ---
Assessment/Plan Problem List: (1) Dementia ICD Codes: F03.90 - Unspecified dementia without behavioral disturbance SNOMED: 39882943 (2) Encephalopathy due to metabolic factor or toxin SNOMED: 765822282 Status: stable Assessment/Plan haldol prn head 30degree provided ro Subjective Date patient seen: Jul 10, 2018 Neurologic/Psychiatric: Reports: anxiety, depressed, emotional problems Allergies: Coded Allergies: PENICILLINS (Verified Allergy, Intermediate, 07/08/18) Subjective more alert Objective Last 24 Hour Vital Signs Date Time Temp Pulse Resp B/P (MAP) Pulse Ox O2 Delivery O2 Flow Rate FiO2 07/10/18 12:00 97.7 68 20 148/76 (100) 91 07/10/18 12:00 70 07/10/18 08:00 97.9 70 20 150/78 (102) 91 07/10/18 08:00 65 07/10/18 05:00 70 18 160/80 (106) 96 07/10/18 04:00 97.7 70 18 163/81 (108) 96 07/10/18 04:00 71 07/10/18 04:00 Nasal Cannula 2.0 07/10/18 03:00 68 16 145/70 (95) 93 07/10/18 02:00 66 16 149/69 (95) 91 07/10/18 01:00 68 16 160/79 (106) 91 07/10/18 00:00 Nasal Cannula 2.0 07/10/18 00:00 97.8 71 16 148/80 (102) 91 07/10/18 00:00 69 07/09/18 23:00 71 16 150/80 (103) 91 07/09/18 22:00 70 16 155/77 (103) 92 07/09/18 21:00 71 16 163/76 (105) 93 07/09/18 20:00 71 17 150/80 (103) 92 07/09/18 20:00 72 07/09/18 20:00 Nasal Cannula 2.0 07/09/18 19:18 95 Nasal Cannula 3.0 32 07/09/18 19:18 Nasal Cannula 3.0 32 07/09/18 19:00 71 16 150/80 (103) 92 07/09/18 18:00 74 16 145/76 (99) 97 07/09/18 17:00 98.1 72 21 152/80 (104) 93 07/09/18 16:00 73 07/09/18 16:00 Nasal Cannula 2.0 07/09/18 16:00 71 12 148/79 (102) 93 07/09/18 15:00 70 19 139/67 (91) 93 07/09/18 14:00 72 11 151/73 (99) 94 Intake and Output 07/09/18 07/10/18 19:00 07:00 Intake Total 1170.334 ml 1100.000 ml Output Total 650 ml 510 ml Balance 520.334 ml 590.000 ml Intake Free Water 60 ml IV Total 1050.334 ml 650.000 ml Tube Feeding 120 ml 390 ml Output Urine Total 650 ml 510 ml Laboratory Tests 07/09/18 21:10: Vancomycin Level Trough 15.6H 07/10/18 04:30: White Blood Count 13.2H, Red Blood Count 3.60L, Hemoglobin 11.4L, Hematocrit 34.1L, Mean Corpuscular Volume 95, Mean Corpuscular Hemoglobin 31.6H, Mean Corpuscular Hemoglobin Concent 33.4, Red Cell Distribution Width 14.1, Platelet Count 353, Mean Platelet Volume 7.1, Neutrophils (%) (Auto) , Lymphocytes (%) ( Auto) , Monocytes (%) (Auto) , Eosinophils (%) (Auto) , Basophils (%) (Auto) , Differential Total Cells Counted 100, Neutrophils % (Manual) 85H, Lymphocytes % (Manual) 6L, Monocytes % (Manual) 8, Eosinophils % (Manual) 1, Basophils % ( Manual) 0, Band Neutrophils 0, Platelet Estimate Adequate, Platelet Morphology Normal, Hypochromasia 1+, Anisocytosis 1+, Prothrombin Time 29.8H, Prothromb Time International Ratio 3.0H, Activated Partial Thromboplast Time 48H, Sodium Level 141, Potassium Level 3.9, Chloride Level 104, Carbon Dioxide Level 36H, Anion Gap 1L, Blood Urea Nitrogen 44H, Creatinine 1.0, Estimat Glomerular Filtration Rate , Glucose Level 88, Calcium Level 9.1, Total Bilirubin 0.4, Aspartate Amino Transf (AST/SGOT) 22, Alanine Aminotransferase (ALT/SGPT) 20, Alkaline Phosphatase 161H, Pro-B-Type Natriuretic Peptide 57855H, Total Protein 7.2, Albumin 2.4L, Globulin 4.8, Albumin/Globulin Ratio 0.5L Height (Feet): 6 Height (Inches): 2.00 Weight (Pounds): 222 General Appearance: no apparent distress, alert, confused, agitated Bartolome Martin MD Jul 10, 2018 13:38
--- NOTE | 2018-07-10 13:39 | Infectious Diseases Prog Note ---
Assessment/Plan Assessment/Plan ASSESSMENT: The patient is an 88-year-old male with: Fever, Sp Leukocytosis, improving UTI GNR Bacteremia GNR x 2 doubt pneumonia pleural effusion Chest x-ray, bilateral pulmonary infiltrates and left pleural effusion. LACosis CHF Hypertension Gout Depression Anemia History of tongue cancer PLAN: Continue the patient on Rocephin d # 1/10-14 , DC IV vancomycin and ertapenem d # 2 day #2. 07/09 Sp IV amikacin d# 2 Monitor CBC. Monitor BMP. Monitor cultures (blood, urine). Monitor x-rays. Thoracocentesis per Pulmonary. Subjective Allergies: Coded Allergies: PENICILLINS (Verified Allergy, Intermediate, 07/08/18) Subjective +ve blood cx : GNR afebrile Objective Vital Signs Last 24 Hour Vital Signs Date Time Temp Pulse Resp B/P (MAP) Pulse Ox O2 Delivery O2 Flow Rate FiO2 07/10/18 12:00 97.7 68 20 148/76 (100) 91 07/10/18 12:00 70 07/10/18 08:00 97.9 70 20 150/78 (102) 91 07/10/18 08:00 65 07/10/18 05:00 70 18 160/80 (106) 96 07/10/18 04:00 97.7 70 18 163/81 (108) 96 07/10/18 04:00 71 07/10/18 04:00 Nasal Cannula 2.0 07/10/18 03:00 68 16 145/70 (95) 93 07/10/18 02:00 66 16 149/69 (95) 91 07/10/18 01:00 68 16 160/79 (106) 91 07/10/18 00:00 Nasal Cannula 2.0 07/10/18 00:00 97.8 71 16 148/80 (102) 91 07/10/18 00:00 69 07/09/18 23:00 71 16 150/80 (103) 91 07/09/18 22:00 70 16 155/77 (103) 92 07/09/18 21:00 71 16 163/76 (105) 93 07/09/18 20:00 71 17 150/80 (103) 92 07/09/18 20:00 72 07/09/18 20:00 Nasal Cannula 2.0 07/09/18 19:18 95 Nasal Cannula 3.0 32 07/09/18 19:18 Nasal Cannula 3.0 32 07/09/18 19:00 71 16 150/80 (103) 92 07/09/18 18:00 74 16 145/76 (99) 97 07/09/18 17:00 98.1 72 21 152/80 (104) 93 07/09/18 16:00 73 07/09/18 16:00 Nasal Cannula 2.0 07/09/18 16:00 71 12 148/79 (102) 93 07/09/18 15:00 70 19 139/67 (91) 93 07/09/18 14:00 72 11 151/73 (99) 94 Height (Feet): 6 Height (Inches): 2.00 Weight (Pounds): 222 HEENT: anicteric Respiratory/Chest: normal breath sounds Cardiovascular: normal rate Abdomen: soft, non tender Microbiology Date/Time Source Procedure Growth Status 07/08/18 02:48 Blood Blood Culture - Preliminary Gram Negative Bacillus 1 Resulted 07/08/18 02:33 Blood Blood Culture - Preliminary Gram Negative Bacillus 1 Resulted 07/10/18 04:00 Sputum Gram Stain - Final Resulted 07/10/18 04:00 Sputum Sputum Culture Pending Resulted 07/08/18 07:24 Nasal Nares MRSA Culture - Final Staphylococcus Aureus - Mrsa Complete 07/08/18 05:30 Nose Influenza Types A,B Antigen (VICK) - Final Complete 07/08/18 14:55 Indwelling Cath Urine Culture - Final Escherichia Coli Complete 07/08/18 02:33 Urine,Clean Catch Urine Culture - Preliminary Gram Negative Bacillus 1 Gram Negative Bacillus 2 Resulted 07/08/18 07:24 Rectum - Final NO CARBAPENEM-RESISTANT ENTEROBACTERI... Complete 07/08/18 07:24 Rectal Mucosa VRE Culture - Final NO VANCOMYCIN RESISTANT ENTEROCOCCUS ... Complete Laboratory Tests Test 07/09/18 21:10 07/10/18 04:30 Vancomycin Level Trough 15.6 ug/mL (5.0-12.0) H White Blood Count 13.2 K/UL (4.8-10.8) H Red Blood Count 3.60 M/UL (4.70-6.10) L Hemoglobin 11.4 G/DL (14.2-18.0) L Hematocrit 34.1 % (42.0-52.0) L Mean Corpuscular Volume 95 FL (80-99) Mean Corpuscular Hemoglobin 31.6 PG (27.0-31.0) H Mean Corpuscular Hemoglobin Concent 33.4 G/DL (32.0-36.0) Red Cell Distribution Width 14.1 % (11.6-14.8) Platelet Count 353 K/UL (150-450) Mean Platelet Volume 7.1 FL (6.5-10.1) Neutrophils (%) (Auto) % (45.0-75.0) Lymphocytes (%) (Auto) % (20.0-45.0) Monocytes (%) (Auto) % (1.0-10.0) Eosinophils (%) (Auto) % (0.0-3.0) Basophils (%) (Auto) % (0.0-2.0) Differential Total Cells Counted 100 Neutrophils % (Manual) 85 % (45-75) H Lymphocytes % (Manual) 6 % (20-45) L Monocytes % (Manual) 8 % (1-10) Eosinophils % (Manual) 1 % (0-3) Basophils % (Manual) 0 % (0-2) Band Neutrophils 0 % (0-8) Platelet Estimate Adequate Platelet Morphology Normal Hypochromasia 1+ Anisocytosis 1+ Prothrombin Time 29.8 SEC (9.30-11.50) H Prothromb Time International Ratio 3.0 (0.9-1.1) H Activated Partial Thromboplast Time 48 SEC (23-33) H Sodium Level 141 MMOL/L (136-145) Potassium Level 3.9 MMOL/L (3.5-5.1) Chloride Level 104 MMOL/L (98-107) Carbon Dioxide Level 36 MMOL/L (21-32) H Anion Gap 1 mmol/L (5-15) L Blood Urea Nitrogen 44 mg/dL (7-18) H Creatinine 1.0 MG/DL (0.55-1.30) Estimat Glomerular Filtration Rate mL/min (>60) Glucose Level 88 MG/DL (74-106) Calcium Level 9.1 MG/DL (8.5-10.1) Total Bilirubin 0.4 MG/DL (0.2-1.0) Aspartate Amino Transf (AST/SGOT) 22 U/L (15-37) Alanine Aminotransferase (ALT/SGPT) 20 U/L (12-78) Alkaline Phosphatase 161 U/L (46-116) H Pro-B-Type Natriuretic Peptide 94328 pg/mL (0-125) H Total Protein 7.2 G/DL (6.4-8.2) Albumin 2.4 G/DL (3.4-5.0) L Globulin 4.8 g/dL Albumin/Globulin Ratio 0.5 (1.0-2.7) L Current Medications Medications (Trade) Dose Ordered Sig/Jorge Route PRN Reason Start Time Stop Time Status Last Admin Dose Admin Acetaminophen (Tylenol) 650 mg Q4H PRN ORAL fever (temp>100.5F) 07/10/18 06:30 08/07/18 06:29 Albuterol/ Ipratropium (Albuterol/ Ipratropium) 3 ml Q4H PRN HHN Shortness of Breath 07/10/18 06:30 07/13/18 06:29 Ertapenem 1 gm/ Sodium Chloride 55 ml @ 110 mls/hr Q24H IV 07/10/18 09:00 07/13/18 08:59 07/10/18 08:58 Haloperidol Lactate (Haldol) 5 mg Q6H PRN IM Agitation 07/10/18 11:00 08/08/18 22:59 Morphine Sulfate (Morphine Sulfate) 2 mg Q4H PRN IVP Severe Pain (Pain Scale 7-10) 07/10/18 06:30 07/15/18 06:29 Ondansetron HCl (Zofran) 4 mg Q6H PRN IVP Nausea & Vomiting 07/10/18 06:30 08/07/18 06:29 Pantoprazole (Protonix) 40 mg EVERY 12 HOURS IVP 07/10/18 09:00 08/07/18 20:59 07/10/18 08:57 Polyethylene Glycol (Miralax) 17 gm DAILYPRN PRN ORAL Constipation 07/10/18 06:30 08/07/18 06:29 Vancomycin HCl (Vanco rx to dose) 1 ea DAILY PRN MISC PER RX PROTOCOL 07/10/18 09:00 08/07/18 07:44 Vancomycin/Sodium Chloride 250 ml @ 166.667 mls/hr Q12HR@1000,2200 IVPB 07/10/18 10:00 07/13/18 21:59 11/6/18 11:19 Thuan Marti MD Jul 10, 2018 13:39
[2018-07-10] MEDS ORDERED: cefTRIAXone 1 GM in D5W 55 ML IVPB SCH (15:00)
--- NOTE | 2018-07-10 15:45 | Cardiac Electrophysiology PN ---
Assessment/Plan Assessment/Plan 1. Hypotension due to likely septic shock. Off Levophed. On iv Abx Echocardiogram EF 55% 2. 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 Have to put him on Cardizem drip. Likely will need PPM implant. 3. Atrial fib with RVR Start Cardizem drip 10 mg /hr and watch for bradycardia also resume coumadin per Rx 4. Trifascicular block with fist degree AVB, RBBB, LAFB 3. History of DVT. The patient was on Coumadin. INR was 5.5. S/P FFP. Current duplex is negative for DVT. 4. History of respiratory failure, now off BiPAP. 5. Pleural effusion. Improving with Lasix LASHANDA RN Subjective Subjective Back in ICU now for new onset atrial fib with RVR again. No CP. Objective Last 24 Hour Vital Signs Date Time Temp Pulse Resp B/P (MAP) Pulse Ox O2 Delivery O2 Flow Rate FiO2 07/10/18 12:00 97.7 68 20 148/76 (100) 91 07/10/18 12:00 70 07/10/18 08:00 97.9 70 20 150/78 (102) 91 07/10/18 08:00 65 07/10/18 05:00 70 18 160/80 (106) 96 07/10/18 04:00 97.7 70 18 163/81 (108) 96 07/10/18 04:00 71 07/10/18 04:00 Nasal Cannula 2.0 07/10/18 03:00 68 16 145/70 (95) 93 07/10/18 02:00 66 16 149/69 (95) 91 07/10/18 01:00 68 16 160/79 (106) 91 07/10/18 00:00 Nasal Cannula 2.0 07/10/18 00:00 97.8 71 16 148/80 (102) 91 07/10/18 00:00 69 07/09/18 23:00 71 16 150/80 (103) 91 07/09/18 22:00 70 16 155/77 (103) 92 07/09/18 21:00 71 16 163/76 (105) 93 07/09/18 20:00 71 17 150/80 (103) 92 07/09/18 20:00 72 07/09/18 20:00 Nasal Cannula 2.0 07/09/18 19:18 95 Nasal Cannula 3.0 32 07/09/18 19:18 Nasal Cannula 3.0 32 07/09/18 19:00 71 16 150/80 (103) 92 07/09/18 18:00 74 16 145/76 (99) 97 07/09/18 17:00 98.1 72 21 152/80 (104) 93 07/09/18 16:00 73 07/09/18 16:00 Nasal Cannula 2.0 07/09/18 16:00 71 12 148/79 (102) 93 Intake and Output 07/09/18 07/10/18 18:59 06:59 Intake Total 1200.334 ml 1170.000 ml Output Total 700 ml 560 ml Balance 500.334 ml 610.000 ml Intake Free Water 60 ml IV Total 1100.334 ml 700.000 ml Tube Feeding 100 ml 410 ml Output Urine Total 700 ml 560 ml Laboratory Tests Test 07/09/18 21:10 07/10/18 04:30 Vancomycin Level Trough 15.6 ug/mL (5.0-12.0) H White Blood Count 13.2 K/UL (4.8-10.8) H Red Blood Count 3.60 M/UL (4.70-6.10) L Hemoglobin 11.4 G/DL (14.2-18.0) L Hematocrit 34.1 % (42.0-52.0) L Mean Corpuscular Volume 95 FL (80-99) Mean Corpuscular Hemoglobin 31.6 PG (27.0-31.0) H Mean Corpuscular Hemoglobin Concent 33.4 G/DL (32.0-36.0) Red Cell Distribution Width 14.1 % (11.6-14.8) Platelet Count 353 K/UL (150-450) Mean Platelet Volume 7.1 FL (6.5-10.1) Neutrophils (%) (Auto) % (45.0-75.0) Lymphocytes (%) (Auto) % (20.0-45.0) Monocytes (%) (Auto) % (1.0-10.0) Eosinophils (%) (Auto) % (0.0-3.0) Basophils (%) (Auto) % (0.0-2.0) Differential Total Cells Counted 100 Neutrophils % (Manual) 85 % (45-75) H Lymphocytes % (Manual) 6 % (20-45) L Monocytes % (Manual) 8 % (1-10) Eosinophils % (Manual) 1 % (0-3) Basophils % (Manual) 0 % (0-2) Band Neutrophils 0 % (0-8) Platelet Estimate Adequate Platelet Morphology Normal Hypochromasia 1+ Anisocytosis 1+ Prothrombin Time 29.8 SEC (9.30-11.50) H Prothromb Time International Ratio 3.0 (0.9-1.1) H Activated Partial Thromboplast Time 48 SEC (23-33) H Sodium Level 141 MMOL/L (136-145) Potassium Level 3.9 MMOL/L (3.5-5.1) Chloride Level 104 MMOL/L (98-107) Carbon Dioxide Level 36 MMOL/L (21-32) H Anion Gap 1 mmol/L (5-15) L Blood Urea Nitrogen 44 mg/dL (7-18) H Creatinine 1.0 MG/DL (0.55-1.30) Estimat Glomerular Filtration Rate mL/min (>60) Glucose Level 88 MG/DL (74-106) Calcium Level 9.1 MG/DL (8.5-10.1) Total Bilirubin 0.4 MG/DL (0.2-1.0) Aspartate Amino Transf (AST/SGOT) 22 U/L (15-37) Alanine Aminotransferase (ALT/SGPT) 20 U/L (12-78) Alkaline Phosphatase 161 U/L (46-116) H Pro-B-Type Natriuretic Peptide 87476 pg/mL (0-125) H Total Protein 7.2 G/DL (6.4-8.2) Albumin 2.4 G/DL (3.4-5.0) L Globulin 4.8 g/dL Albumin/Globulin Ratio 0.5 (1.0-2.7) L Microbiology Date/Time Source Procedure Growth Status 07/08/18 02:48 Blood Blood Culture - Preliminary Gram Negative Bacillus 1 Resulted 07/08/18 02:33 Blood Blood Culture - Preliminary Gram Negative Bacillus 1 Resulted 07/10/18 04:00 Sputum Gram Stain - Final Resulted 07/10/18 04:00 Sputum Sputum Culture Pending Resulted 07/08/18 07:24 Nasal Nares MRSA Culture - Final Staphylococcus Aureus - Mrsa Complete 07/08/18 05:30 Nose Influenza Types A,B Antigen (VICK) - Final Complete 07/08/18 14:55 Indwelling Cath Urine Culture - Final Escherichia Coli Complete 07/08/18 02:33 Urine,Clean Catch Urine Culture - Preliminary Gram Negative Bacillus 1 Gram Negative Bacillus 2 Resulted 07/08/18 07:24 Rectum - Final NO CARBAPENEM-RESISTANT ENTEROBACTERI... Complete 07/08/18 07:24 Rectal Mucosa VRE Culture - Final NO VANCOMYCIN RESISTANT ENTEROCOCCUS ... Complete Objective HEAD AND NECK: No JVD. LUNGS: Coarse rhonchi. CARDIOVASCULAR: Irregular S1 and S2 with no gallop or murmur. ABDOMEN: Soft. EXTREMITIES: 1+ pitting edema. Gerson Isaacs MD Jul 10, 2018 15:45
--- NOTE | 2018-07-10 16:16 | Internal Med Progress Note ---
Subjective Date of Service: Jul 10, 2018 Physician Name Dale Hale Attending Physician Elton Infante MD Current Medications Medications (Trade) Dose Ordered Sig/Jorge Route PRN Reason Start Time Stop Time Status Last Admin Dose Admin Acetaminophen (Tylenol) 650 mg Q4H PRN ORAL fever (temp>100.5F) 07/10/18 18:30 08/07/18 06:29 UNV Albuterol/ Ipratropium (Albuterol/ Ipratropium) 3 ml Q4H PRN HHN Shortness of Breath 07/10/18 18:30 07/13/18 06:29 UNV Ceftriaxone Sodium 1 gm/ Dextrose 55 ml @ 110 mls/hr Q24H IVPB 07/11/18 15:00 07/17/18 14:59 UNV Diltiazem HCl 125 mg/Dextrose 125 ml @ 10 mls/hr [id number] IVPB 07/10/18 16:00 07/11/18 14:59 UNV Furosemide (Lasix) 40 mg EVERY 12 HOURS IV 07/10/18 21:00 08/09/18 20:59 UNV Haloperidol Lactate (Haldol) 5 mg Q6H PRN IM Agitation 07/10/18 17:00 08/08/18 22:59 UNV Morphine Sulfate (Morphine Sulfate) 2 mg Q4H PRN IVP Severe Pain (Pain Scale 7-10) 07/10/18 18:30 07/15/18 06:29 UNV Ondansetron HCl (Zofran) 4 mg Q6H PRN IVP Nausea & Vomiting 07/10/18 18:30 08/07/18 06:29 UNV Pantoprazole (Protonix) 40 mg EVERY 12 HOURS IVP 07/10/18 21:00 08/07/18 20:59 UNV Polyethylene Glycol (Miralax) 17 gm DAILYPRN PRN ORAL Constipation 07/11/18 06:30 08/07/18 06:29 UNV Allergies: Coded Allergies: PENICILLINS (Verified Allergy, Intermediate, 07/08/18) ROS Limited/Unobtainable: No Constitutional: Reports: no symptoms HEENT: Reports: no symptoms Cardiovascular: Reports: no symptoms Respiratory: Reports: no symptoms Gastrointestinal/Abdominal: Reports: no symptoms Genitourinary: Reports: no symptoms Neurologic/Psychiatric: Reports: no symptoms Subjective 88 YO M admitted with altered mental status. Now UTI and septic shock. Cover for Int [facility] ICU. Tolerating nasal canula Objective Last Vital Signs Date Time Temp Pulse Resp B/P (MAP) Pulse Ox O2 Delivery O2 Flow Rate FiO2 07/10/18 12:00 97.7 68 20 148/76 (100) 91 07/10/18 04:00 Nasal Cannula 2.0 07/09/18 19:18 32 Laboratory Tests Test 07/09/18 21:10 07/10/18 04:30 Vancomycin Level Trough 15.6 ug/mL (5.0-12.0) H White Blood Count 13.2 K/UL (4.8-10.8) H Red Blood Count 3.60 M/UL (4.70-6.10) L Hemoglobin 11.4 G/DL (14.2-18.0) L Hematocrit 34.1 % (42.0-52.0) L Mean Corpuscular Volume 95 FL (80-99) Mean Corpuscular Hemoglobin 31.6 PG (27.0-31.0) H Mean Corpuscular Hemoglobin Concent 33.4 G/DL (32.0-36.0) Red Cell Distribution Width 14.1 % (11.6-14.8) Platelet Count 353 K/UL (150-450) Mean Platelet Volume 7.1 FL (6.5-10.1) Neutrophils (%) (Auto) % (45.0-75.0) Lymphocytes (%) (Auto) % (20.0-45.0) Monocytes (%) (Auto) % (1.0-10.0) Eosinophils (%) (Auto) % (0.0-3.0) Basophils (%) (Auto) % (0.0-2.0) Differential Total Cells Counted 100 Neutrophils % (Manual) 85 % (45-75) H Lymphocytes % (Manual) 6 % (20-45) L Monocytes % (Manual) 8 % (1-10) Eosinophils % (Manual) 1 % (0-3) Basophils % (Manual) 0 % (0-2) Band Neutrophils 0 % (0-8) Platelet Estimate Adequate Platelet Morphology Normal Hypochromasia 1+ Anisocytosis 1+ Prothrombin Time 29.8 SEC (9.30-11.50) H Prothromb Time International Ratio 3.0 (0.9-1.1) H Activated Partial Thromboplast Time 48 SEC (23-33) H Sodium Level 141 MMOL/L (136-145) Potassium Level 3.9 MMOL/L (3.5-5.1) Chloride Level 104 MMOL/L (98-107) Carbon Dioxide Level 36 MMOL/L (21-32) H Anion Gap 1 mmol/L (5-15) L Blood Urea Nitrogen 44 mg/dL (7-18) H Creatinine 1.0 MG/DL (0.55-1.30) Estimat Glomerular Filtration Rate mL/min (>60) Glucose Level 88 MG/DL (74-106) Calcium Level 9.1 MG/DL (8.5-10.1) Total Bilirubin 0.4 MG/DL (0.2-1.0) Aspartate Amino Transf (AST/SGOT) 22 U/L (15-37) Alanine Aminotransferase (ALT/SGPT) 20 U/L (12-78) Alkaline Phosphatase 161 U/L (46-116) H Pro-B-Type Natriuretic Peptide 61380 pg/mL (0-125) H Total Protein 7.2 G/DL (6.4-8.2) Albumin 2.4 G/DL (3.4-5.0) L Globulin 4.8 g/dL Albumin/Globulin Ratio 0.5 (1.0-2.7) L Microbiology Date/Time Source Procedure Growth Status 07/08/18 02:48 Blood Blood Culture - Preliminary Gram Negative Bacillus 1 Resulted 07/08/18 02:33 Blood Blood Culture - Preliminary Gram Negative Bacillus 1 Resulted 07/10/18 04:00 Sputum Gram Stain - Final Resulted 07/10/18 04:00 Sputum Sputum Culture Pending Resulted 07/08/18 07:24 Nasal Nares MRSA Culture - Final Staphylococcus Aureus - Mrsa Complete 07/08/18 05:30 Nose Influenza Types A,B Antigen (VICK) - Final Complete 07/08/18 14:55 Indwelling Cath Urine Culture - Final Escherichia Coli Complete 07/08/18 02:33 Urine,Clean Catch Urine Culture - Preliminary Gram Negative Bacillus 1 Gram Negative Bacillus 2 Resulted 07/08/18 07:24 Rectum - Final NO CARBAPENEM-RESISTANT ENTEROBACTERI... Complete 07/08/18 07:24 Rectal Mucosa VRE Culture - Final NO VANCOMYCIN RESISTANT ENTEROCOCCUS ... Complete Intake and Output 07/09/18 07/10/18 18:59 06:59 Intake Total 1200.334 ml 1170.000 ml Output Total 700 ml 560 ml Balance 500.334 ml 610.000 ml Intake Free Water 60 ml IV Total 1100.334 ml 700.000 ml Tube Feeding 100 ml 410 ml Output Urine Total 700 ml 560 ml Objective General Appearance: WD/WN, moderate distress EENT: PERRL/EOMI, normal ENT inspection Neck: non-tender, normal alignment, supple, normal inspection Cardiovascular: normal peripheral pulses, regular rhythm, no gallop/murmur, no JVD, bradycardia Respiratory/Chest: chest wall non-tender, crackles/rales, rhonchi - bilaterally , expiratory wheezing Abdomen: normal bowel sounds, non tender, soft, no organomegaly, no mass Extremities: normal range of motion, non-tender 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 Continue ertapenem and ceftriaxone per ID (2) Pneumonia Assessment & Plan: Bilateral. See pulmonary note. Cont ertapenem and vanco (3) Altered level of consciousness (4) UTI (urinary tract infection) Assessment & Plan: E. Coli. Continue ceftriaxone and ertapenem per ID (5) Sepsis Status: not improved Dale Hale MD Jul 10, 2018 16:16
[2018-07-10] MEDS ORDERED: Morphine Sulfate 2mg/ml Inj IVP PRN (18:30)
[2018-07-10] MEDS: Pantoprazole Inj IVP SCH (21:15)
[2018-07-11] VITALS (35 sets, daily range): BP systolic 102–169; BP diastolic 54–94
[2018-07-11 04:21] LABS: BASOPHILS % (AUTO) 0.7 % (0.0-2.0); EOSINOPHILS % (AUTO) 2.5 % (0.0-3.0); HEMATOCRIT 30.3 % (42.0-52.0); HEMOGLOBIN 10.3 G/DL (14.2-18.0); LYMPHOCYTES % (AUTO) 14.1 % (20.0-45.0); MEAN CORPUSCULAR VOLUME 94 FL (80-99); MONOCYTES % (AUTO) 9.2 % (1.0-10.0); NEUTROPHILS % (AUTO) 73.5 % (45.0-75.0); PLATELET COUNT 298 K/UL (150-450); RED BLOOD COUNT 3.23 M/UL (4.70-6.10); RED CELL DISTRIBUTION WIDTH 13.8 % (11.6-14.8); WHITE BLOOD COUNT 7.8 K/UL (4.8-10.8)
[2018-07-11 04:55] LABS: ALANINE AMINOTRANSFERASE 21 U/L (12-78); ALBUMIN 2.3 G/DL (3.4-5.0); ALBUMIN/GLOBULIN RATIO 0.5 (1.0-2.7); ALKALINE PHOSPHATASE 149 U/L (46-116); ANION GAP 2 mmol/L (5-15); ASPARTATE AMINO TRANSFERASE 17 U/L (15-37); BILIRUBIN,TOTAL 0.3 MG/DL (0.2-1.0); BLOOD UREA NITROGEN 42 mg/dL (7-18); CALCIUM 9.2 MG/DL (8.5-10.1); CARBON DIOXIDE 37 MMOL/L (21-32); CHLORIDE 105 MMOL/L (98-107); POTASSIUM 3.4 MMOL/L (3.5-5.1); SODIUM 144 MMOL/L (136-145)
[2018-07-11] MEDS ORDERED: NS IV SCH (08:45)
[2018-07-11] MEDS ORDERED: POTASSIUM CHLORIDE IV SCH (08:45)
[2018-07-11] MEDS: Pantoprazole Inj IVP SCH ×2 (09:25→20:47)
--- NOTE | 2018-07-11 10:37 | Pulmonolgy Critical Care Note ---
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 Critical Care - Objective Last 24 Hour Vital Signs Date Time Temp Pulse Resp B/P (MAP) Pulse Ox O2 Delivery O2 Flow Rate FiO2 07/11/18 08:00 54 15 158/66 (96) 97 07/11/18 07:23 59 17 95 07/11/18 07:00 Bi-pap 30 07/11/18 07:00 56 16 158/61 (93) 95 07/11/18 07:00 99 Bi-pap 30 07/11/18 07:00 54 16 99 Facial 30 07/11/18 06:30 52 16 155/63 (93) 97 07/11/18 06:00 51 16 102/54 (70) 96 07/11/18 05:30 59 16 116/60 (78) 97 07/11/18 05:00 59 16 148/63 (91) 97 07/11/18 04:53 59 23 97 Facial 30 07/11/18 04:30 64 16 162/70 (100) 88 07/11/18 04:00 Nasal Cannula 2.0 07/11/18 04:00 97.7 55 17 153/70 (97) 91 07/11/18 04:00 71 07/11/18 03:30 55 16 154/79 (104) 95 07/11/18 03:00 58 16 127/76 (93) 92 07/11/18 02:30 56 16 127/76 (93) 92 07/11/18 02:00 56 16 128/80 (96) 92 07/11/18 01:30 56 19 133/62 (85) 92 07/11/18 01:00 52 19 133/62 (85) 97 07/11/18 00:30 53 19 134/68 (90) 100 07/11/18 00:00 55 07/11/18 00:00 Nasal Cannula 2.0 07/11/18 00:00 98.0 55 18 128/70 (89) 92 07/10/18 23:30 56 19 132/61 (84) 93 07/10/18 23:00 56 18 125/58 (80) 92 07/10/18 22:30 56 18 132/63 (86) 93 07/10/18 22:19 61 134/60 07/10/18 22:00 58 18 117/63 (81) 91 07/10/18 21:30 59 18 127/59 (81) 91 07/10/18 21:00 60 18 123/65 (84) 91 07/10/18 20:30 60 16 128/59 (82) 91 07/10/18 20:00 Nasal Cannula 2.0 07/10/18 20:00 59 07/10/18 20:00 97.9 61 18 120/68 (85) 95 07/10/18 19:30 60 18 108/68 (81) 98 07/10/18 19:17 61 20 98 Nasal Cannula 2.0 28 07/10/18 19:09 98 Nasal Cannula 2.0 28 07/10/18 19:09 95 22 98 Nasal Cannula 2.0 28 07/10/18 19:09 Nasal Cannula 2.0 28 07/10/18 19:00 100 21 128/82 (97) 96 07/10/18 16:55 123 134/83 07/10/18 16:00 120 07/10/18 16:00 98.1 118 21 120/74 (89) 98 07/10/18 12:00 97.7 68 20 148/76 (100) 91 07/10/18 12:00 70 Status: sedated Condition: critical HEENT: atraumatic Lungs: clear Heart: HR/BP stable Abdomen: feeding tube Extremities: no C/C/E, edema Micro: Microbiology Date/Time Source Procedure Growth Status 07/10/18 04:00 Sputum Gram Stain - Final Resulted 07/10/18 04:00 Sputum Sputum Culture - Preliminary Resulted 07/08/18 14:55 Indwelling Cath Urine Culture - Final Escherichia Coli Complete Critical Care - Subjective ROS Limited/Unobtainable: Yes ICU Day: 2 Interval Events: transferred to icu because of rapid afib, currently on cardizem drip, drowsy FI02: 30 Sputum Amount: None Tube Feeding Amount: 60 I&O: Intake and Output 07/10/18 07/11/18 19:00 07:00 Intake Total 635 ml 785 ml Output Total 750 ml 1075 ml Balance -115 ml -290 ml Intake Free Water 200 ml 90 ml IV Total 75 ml 65 ml Tube Feeding 360 ml 630 ml Output Urine Total 750 ml 1075 ml CXR: pulmonary edema Labs: Laboratory Tests Test 07/11/18 03:50 07/11/18 09:00 White Blood Count 7.8 K/UL (4.8-10.8) Red Blood Count 3.23 M/UL (4.70-6.10) L Hemoglobin 10.3 G/DL (14.2-18.0) L Hematocrit 30.3 % (42.0-52.0) L Mean Corpuscular Volume 94 FL (80-99) Mean Corpuscular Hemoglobin 32.0 PG (27.0-31.0) H Mean Corpuscular Hemoglobin Concent 34.0 G/DL (32.0-36.0) Red Cell Distribution Width 13.8 % (11.6-14.8) Platelet Count 298 K/UL (150-450) Mean Platelet Volume 7.2 FL (6.5-10.1) Neutrophils (%) (Auto) 73.5 % (45.0-75.0) Lymphocytes (%) (Auto) 14.1 % (20.0-45.0) L Monocytes (%) (Auto) 9.2 % (1.0-10.0) Eosinophils (%) (Auto) 2.5 % (0.0-3.0) Basophils (%) (Auto) 0.7 % (0.0-2.0) Sodium Level 144 MMOL/L (136-145) Potassium Level 3.4 MMOL/L (3.5-5.1) L Chloride Level 105 MMOL/L (98-107) Carbon Dioxide Level 37 MMOL/L (21-32) H Anion Gap 2 mmol/L (5-15) L Blood Urea Nitrogen 42 mg/dL (7-18) H Creatinine 1.0 MG/DL (0.55-1.30) Estimat Glomerular Filtration Rate mL/min (>60) Glucose Level 111 MG/DL (74-106) H Calcium Level 9.2 MG/DL (8.5-10.1) Total Bilirubin 0.3 MG/DL (0.2-1.0) Aspartate Amino Transf (AST/SGOT) 17 U/L (15-37) Alanine Aminotransferase (ALT/SGPT) 21 U/L (12-78) Alkaline Phosphatase 149 U/L (46-116) H Pro-B-Type Natriuretic Peptide 33368 pg/mL (0-125) H Total Protein 6.8 G/DL (6.4-8.2) Albumin 2.3 G/DL (3.4-5.0) L Globulin 4.5 g/dL Albumin/Globulin Ratio 0.5 (1.0-2.7) L Vancomycin Level Trough 15.2 ug/mL (5.0-12.0) H Gertrudis Quintanilla MD Jul 11, 2018 10:37
--- NOTE | 2018-07-11 11:54 | Internal Med Progress Note ---
Subjective Date of Service: Jul 11, 2018 Physician Name Dale Hale Attending Physician Elton Infante MD Current Medications Medications (Trade) Dose Ordered Sig/Jorge Route PRN Reason Start Time Stop Time Status Last Admin Dose Admin Acetaminophen (Tylenol) 650 mg Q4H PRN ORAL fever (temp>100.5F) 07/10/18 16:15 08/07/18 16:14 Albuterol/ Ipratropium (Albuterol/ Ipratropium) 3 ml Q4H PRN HHN Shortness of Breath 07/10/18 18:30 07/13/18 06:29 07/10/18 19:09 Ceftriaxone Sodium 1 gm/ Dextrose 55 ml @ 110 mls/hr Q24H IVPB 07/11/18 15:00 07/17/18 14:59 Diltiazem HCl 125 mg/Dextrose 125 ml @ 5 mls/hr Q24H IVPB 07/10/18 22:00 07/11/18 21:59 07/10/18 22:19 Furosemide (Lasix) 40 mg EVERY 12 HOURS IV 07/10/18 21:00 08/09/18 20:59 07/11/18 09:25 Haloperidol Lactate (Haldol) 5 mg Q6H PRN IM Agitation 07/10/18 17:00 08/08/18 22:59 Morphine Sulfate (Morphine Sulfate) 2 mg Q4H PRN IVP Severe Pain (Pain Scale 7-10) 07/10/18 18:30 07/15/18 06:29 Ondansetron HCl (Zofran) 4 mg Q6H PRN IVP Nausea & Vomiting 07/10/18 16:30 08/07/18 16:29 Pantoprazole (Protonix) 40 mg EVERY 12 HOURS IVP 07/10/18 21:00 08/07/18 20:59 07/11/18 09:25 Potassium Chloride 80 meq/ Sodium Chloride 1,040 ml @ 125 mls/hr Q8H20M IV 07/11/18 08:45 07/11/18 17:04 07/11/18 09:25 Allergies: Coded Allergies: PENICILLINS (Verified Allergy, Intermediate, 07/08/18) ROS Limited/Unobtainable: Yes Subjective 88 YO M admitted with altered mental status. Now UTI and septic shock. Cover for Int Med-Dr Infante ICU. Tolerating nasal mask Objective Last Vital Signs Date Time Temp Pulse Resp B/P (MAP) Pulse Ox O2 Delivery O2 Flow Rate FiO2 07/11/18 11:00 58 21 149/83 (105) 99 07/11/18 08:30 97.8 07/11/18 08:00 Nasal Cannula 4.0 07/11/18 07:00 30 Laboratory Tests Test 07/11/18 03:50 07/11/18 09:00 White Blood Count 7.8 K/UL (4.8-10.8) Red Blood Count 3.23 M/UL (4.70-6.10) L Hemoglobin 10.3 G/DL (14.2-18.0) L Hematocrit 30.3 % (42.0-52.0) L Mean Corpuscular Volume 94 FL (80-99) Mean Corpuscular Hemoglobin 32.0 PG (27.0-31.0) H Mean Corpuscular Hemoglobin Concent 34.0 G/DL (32.0-36.0) Red Cell Distribution Width 13.8 % (11.6-14.8) Platelet Count 298 K/UL (150-450) Mean Platelet Volume 7.2 FL (6.5-10.1) Neutrophils (%) (Auto) 73.5 % (45.0-75.0) Lymphocytes (%) (Auto) 14.1 % (20.0-45.0) L Monocytes (%) (Auto) 9.2 % (1.0-10.0) Eosinophils (%) (Auto) 2.5 % (0.0-3.0) Basophils (%) (Auto) 0.7 % (0.0-2.0) Sodium Level 144 MMOL/L (136-145) Potassium Level 3.4 MMOL/L (3.5-5.1) L Chloride Level 105 MMOL/L (98-107) Carbon Dioxide Level 37 MMOL/L (21-32) H Anion Gap 2 mmol/L (5-15) L Blood Urea Nitrogen 42 mg/dL (7-18) H Creatinine 1.0 MG/DL (0.55-1.30) Estimat Glomerular Filtration Rate mL/min (>60) Glucose Level 111 MG/DL (74-106) H Calcium Level 9.2 MG/DL (8.5-10.1) Total Bilirubin 0.3 MG/DL (0.2-1.0) Aspartate Amino Transf (AST/SGOT) 17 U/L (15-37) Alanine Aminotransferase (ALT/SGPT) 21 U/L (12-78) Alkaline Phosphatase 149 U/L (46-116) H Pro-B-Type Natriuretic Peptide 75663 pg/mL (0-125) H Total Protein 6.8 G/DL (6.4-8.2) Albumin 2.3 G/DL (3.4-5.0) L Globulin 4.5 g/dL Albumin/Globulin Ratio 0.5 (1.0-2.7) L Vancomycin Level Trough 15.2 ug/mL (5.0-12.0) H Microbiology Date/Time Source Procedure Growth Status 07/10/18 04:00 Sputum Gram Stain - Final Resulted 07/10/18 04:00 Sputum Sputum Culture - Preliminary Resulted 07/08/18 14:55 Indwelling Cath Urine Culture - Final Escherichia Coli Complete Intake and Output 07/10/18 07/11/18 19:00 07:00 Intake Total 635 ml 850 ml Output Total 750 ml 1175 ml Balance -115 ml -325 ml Intake Free Water 200 ml 90 ml IV Total 75 ml 70 ml Tube Feeding 360 ml 690 ml Output Urine Total 750 ml 1175 ml Objective General Appearance: WD/WN, moderate distress EENT: PERRL/EOMI, normal ENT inspection Neck: non-tender, normal alignment, supple, normal inspection Cardiovascular: normal peripheral pulses, regular rhythm, no gallop/murmur, no JVD, bradycardia Respiratory/Chest: Nasal mask; chest wall non-tender, crackles/rales, rhonchi - bilaterally, expiratory wheezing Abdomen: normal bowel sounds, non tender, soft, no organomegaly, no mass Extremities: normal range of motion, non-tender 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 Coli Continue ertapenem and ceftriaxone per ID (2) Pneumonia Assessment & Plan: Bilateral. See pulmonary note. Cont ertapenem and vanco (3) Altered level of consciousness (4) UTI (urinary tract infection) Assessment & Plan: E. Coli. Continue ceftriaxone and ertapenem per ID (5) Sepsis Assessment/Plan Social work consult pending for power of tube puller Hale,Dale MD Jul 11, 2018 11:54
--- NOTE | 2018-07-11 12:08 | Diagnostic Imaging Report ---
Indication: Dyspnea Comparison: 07/10/2018 A single view chest radiograph was obtained. Findings: Evidence of worsening pulmonary edema with the interstitial and the airspace opacities, prominent vascularity and heart size. Bilateral pleural effusions also suspected. Lung volumes are low. IMPRESSION: Congestive heart failure moderate in degree. Probable worsening although the comparison is problematic given the lower lung volumes currently
--- NOTE | 2018-07-11 12:34 | Diagnostic Imaging Report ---
APPROVED REPORT CPT Code: 80799 Present Symptoms Lower Extremity Pain: Bilateral Shortness of breath RIGHT LEG: Venous imaging reveals a patent deep venous system. There is no evidence of thrombus within the femoral, popliteal or tibial segments. The greater saphenous vein is also within normal limits. Doppler indicates normal spontaneous flow within these segments. 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 Large collateral vein noted anterior to the superficial femoral artery. The remainder of the deep venous system is within normal limits. There is no evidence of thrombus in the popliteal or calf veins. The greater saphenous vein is also within normal limits. Doppler indicates normal spontaneous flow within these segments. There is no evidence of acute deep vein thrombosis.
--- NOTE | 2018-07-11 13:30 | Cardiac Electrophysiology PN ---
Assessment/Plan Assessment/Plan 1. Hypotension due to likely septic shock. Off Levophed. On iv Abx Echocardiogram EF 55% 2. 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 Dc Cardizem drip. Likely will need PPM implant. 3. Atrial fib with RVR . Change Cardizem drip to Cardizem 30 po q 8 hrs. Resume coumadin per Rx 4. Trifascicular block with fist degree AVB, RBBB, LAFB 3. History of DVT. Resume Coumadin. INR was 5.5. S/P FFP. Current duplex is negative for DVT. 4. History of respiratory failure, now off BiPAP. 5. Pleural effusion. Improving with Lasix. No thoracentesis now. LASHANDA RN Subjective Subjective In ICU converted to SR on Cardizem drip at 5mg/hr. Objective Last 24 Hour Vital Signs Date Time Temp Pulse Resp B/P (MAP) Pulse Ox O2 Delivery O2 Flow Rate FiO2 07/11/18 12:53 56 16 98 Facial 30 07/11/18 11:00 58 21 149/83 (105) 99 07/11/18 10:00 54 16 135/82 (99) 98 07/11/18 09:30 52 21 155/66 (95) 99 07/11/18 09:00 54 19 146/85 (105) 99 07/11/18 08:30 97.8 53 15 169/66 (100) 99 07/11/18 08:00 54 15 158/66 (96) 97 07/11/18 08:00 59 07/11/18 08:00 Nasal Cannula 4.0 07/11/18 07:23 59 17 95 07/11/18 07:00 Bi-pap 30 07/11/18 07:00 56 16 158/61 (93) 95 07/11/18 07:00 99 Bi-pap 30 07/11/18 07:00 54 16 99 Facial 30 07/11/18 06:30 52 16 155/63 (93) 97 07/11/18 06:00 51 16 102/54 (70) 96 07/11/18 05:30 59 16 116/60 (78) 97 07/11/18 05:00 59 16 148/63 (91) 97 07/11/18 04:53 59 23 97 Facial 30 07/11/18 04:30 64 16 162/70 (100) 88 07/11/18 04:00 Nasal Cannula 2.0 07/11/18 04:00 97.7 55 17 153/70 (97) 91 07/11/18 04:00 71 07/11/18 03:30 55 16 154/79 (104) 95 07/11/18 03:00 58 16 127/76 (93) 92 07/11/18 02:30 56 16 127/76 (93) 92 07/11/18 02:00 56 16 128/80 (96) 92 07/11/18 01:30 56 19 133/62 (85) 92 07/11/18 01:00 52 19 133/62 (85) 97 07/11/18 00:30 53 19 134/68 (90) 100 07/11/18 00:00 55 07/11/18 00:00 Nasal Cannula 2.0 07/11/18 00:00 98.0 55 18 128/70 (89) 92 07/10/18 23:30 56 19 132/61 (84) 93 07/10/18 23:00 56 18 125/58 (80) 92 07/10/18 22:30 56 18 132/63 (86) 93 07/10/18 22:19 61 134/60 07/10/18 22:00 58 18 117/63 (81) 91 07/10/18 21:30 59 18 127/59 (81) 91 07/10/18 21:00 60 18 123/65 (84) 91 07/10/18 20:30 60 16 128/59 (82) 91 07/10/18 20:00 Nasal Cannula 2.0 07/10/18 20:00 59 07/10/18 20:00 97.9 61 18 120/68 (85) 95 07/10/18 19:30 60 18 108/68 (81) 98 07/10/18 19:17 61 20 98 Nasal Cannula 2.0 28 07/10/18 19:09 98 Nasal Cannula 2.0 28 07/10/18 19:09 95 22 98 Nasal Cannula 2.0 28 07/10/18 19:09 Nasal Cannula 2.0 28 07/10/18 19:00 100 21 128/82 (97) 96 07/10/18 16:55 123 134/83 07/10/18 16:00 120 07/10/18 16:00 98.1 118 21 120/74 (89) 98 Intake and Output 07/10/18 07/11/18 19:00 07:00 Intake Total 635 ml 850 ml Output Total 750 ml 1175 ml Balance -115 ml -325 ml Intake Free Water 200 ml 90 ml IV Total 75 ml 70 ml Tube Feeding 360 ml 690 ml Output Urine Total 750 ml 1175 ml Laboratory Tests Test 07/11/18 03:50 07/11/18 09:00 07/11/18 12:05 White Blood Count 7.8 K/UL (4.8-10.8) Red Blood Count 3.23 M/UL (4.70-6.10) L Hemoglobin 10.3 G/DL (14.2-18.0) L Hematocrit 30.3 % (42.0-52.0) L Mean Corpuscular Volume 94 FL (80-99) Mean Corpuscular Hemoglobin 32.0 PG (27.0-31.0) H Mean Corpuscular Hemoglobin Concent 34.0 G/DL (32.0-36.0) Red Cell Distribution Width 13.8 % (11.6-14.8) Platelet Count 298 K/UL (150-450) Mean Platelet Volume 7.2 FL (6.5-10.1) Neutrophils (%) (Auto) 73.5 % (45.0-75.0) Lymphocytes (%) (Auto) 14.1 % (20.0-45.0) L Monocytes (%) (Auto) 9.2 % (1.0-10.0) Eosinophils (%) (Auto) 2.5 % (0.0-3.0) Basophils (%) (Auto) 0.7 % (0.0-2.0) Sodium Level 144 MMOL/L (136-145) Potassium Level 3.4 MMOL/L (3.5-5.1) L Chloride Level 105 MMOL/L (98-107) Carbon Dioxide Level 37 MMOL/L (21-32) H Anion Gap 2 mmol/L (5-15) L Blood Urea Nitrogen 42 mg/dL (7-18) H Creatinine 1.0 MG/DL (0.55-1.30) Estimat Glomerular Filtration Rate mL/min (>60) Glucose Level 111 MG/DL (74-106) H Calcium Level 9.2 MG/DL (8.5-10.1) Total Bilirubin 0.3 MG/DL (0.2-1.0) Aspartate Amino Transf (AST/SGOT) 17 U/L (15-37) Alanine Aminotransferase (ALT/SGPT) 21 U/L (12-78) Alkaline Phosphatase 149 U/L (46-116) H Pro-B-Type Natriuretic Peptide 55162 pg/mL (0-125) H Total Protein 6.8 G/DL (6.4-8.2) Albumin 2.3 G/DL (3.4-5.0) L Globulin 4.5 g/dL Albumin/Globulin Ratio 0.5 (1.0-2.7) L Vancomycin Level Trough 15.2 ug/mL (5.0-12.0) H Arterial Blood pH 7.449 (7.350-7.450) Arterial Blood Partial Pressure CO2 54.1 mmHg (35.0-45.0) H Arterial Blood Partial Pressure O2 90.1 mmHg (75.0-100.0) Arterial Blood HCO3 36.7 mmol/L (22.0-26.0) H Arterial Blood Oxygen Saturation 96.1 % (95-100) Arterial Blood Base Excess 11.0 (-2-2) *H Guicho Test Positive Microbiology Date/Time Source Procedure Growth Status 07/10/18 04:00 Sputum Gram Stain - Final Resulted 07/10/18 04:00 Sputum Sputum Culture - Preliminary Resulted 07/08/18 14:55 Indwelling Cath Urine Culture - Final Escherichia Coli Complete Objective HEAD AND NECK: No JVD. On Ventimask LUNGS: Coarse rhonchi. CARDIOVASCULAR: Regular S1 and S2 with no gallop or murmur. ABDOMEN: Soft. EXTREMITIES: 1+ pitting edema. Gerson Isaacs MD Jul 11, 2018 13:30
[2018-07-11] MEDS ORDERED: dilTIAZem HCl 30mg tab GT SCH (14:00)
--- NOTE | 2018-07-11 14:42 | Diagnostic Imaging Report ---
Indication:Elevated Bun and Creatinine. Technique: Grayscale and duplex Doppler imaging of the kidneys performed. Comparison: None Findings: The size, contour, and echogenicity of both kidneys are within normal limits. There is no hydronephrosis. The IVC and urinary bladder are unremarkable. There is a left renal cyst. Sales catheter noted. Small bilateral pleural effusions are present. Right kidney is 11 cm. Left kidney is about 10.8 cm in length. IMPRESSION: Left renal cyst Bilateral pleural effusion
[2018-07-11] MEDS ORDERED: cefTRIAXone 1 GM in D5W 55 ML IVPB SCH (15:00)
--- NOTE | 2018-07-11 15:26 | General Progress Note ---
Assessment/Plan Problem List: (1) Dementia ICD Codes: F03.90 - Unspecified dementia without behavioral disturbance SNOMED: 70813163 (2) Encephalopathy due to metabolic factor or toxin SNOMED: 711720673 Status: unchanged Assessment/Plan haldol prn head 30degree provided ro Subjective Date patient seen: Jul 11, 2018 Neurologic/Psychiatric: Reports: anxiety Allergies: Coded Allergies: PENICILLINS (Verified Allergy, Intermediate, 07/08/18) Objective Last 24 Hour Vital Signs Date Time Temp Pulse Resp B/P (MAP) Pulse Ox O2 Delivery O2 Flow Rate FiO2 07/11/18 15:14 55 17 97 Facial 30 07/11/18 14:59 62 157/72 07/11/18 13:00 60 16 150/89 (109) 100 07/11/18 12:53 56 16 98 Facial 30 07/11/18 12:30 60 15 168/83 (111) 98 07/11/18 12:00 Bi-pap 07/11/18 12:00 98.8 58 14 153/80 (104) 98 07/11/18 11:30 58 15 150/81 (104) 98 07/11/18 11:00 58 21 149/83 (105) 99 07/11/18 10:00 54 16 135/82 (99) 98 07/11/18 09:30 52 21 155/66 (95) 99 07/11/18 09:00 54 19 146/85 (105) 99 07/11/18 08:30 97.8 53 15 169/66 (100) 99 07/11/18 08:00 54 15 158/66 (96) 97 07/11/18 08:00 59 07/11/18 08:00 Nasal Cannula 4.0 07/11/18 07:23 59 17 95 07/11/18 07:00 Bi-pap 30 07/11/18 07:00 56 16 158/61 (93) 95 07/11/18 07:00 99 Bi-pap 30 07/11/18 07:00 54 16 99 Facial 30 07/11/18 06:30 52 16 155/63 (93) 97 07/11/18 06:00 51 16 102/54 (70) 96 07/11/18 05:30 59 16 116/60 (78) 97 07/11/18 05:00 59 16 148/63 (91) 97 07/11/18 04:53 59 23 97 Facial 30 07/11/18 04:30 64 16 162/70 (100) 88 07/11/18 04:00 Nasal Cannula 2.0 07/11/18 04:00 97.7 55 17 153/70 (97) 91 07/11/18 04:00 71 07/11/18 03:30 55 16 154/79 (104) 95 07/11/18 03:00 58 16 127/76 (93) 92 07/11/18 02:30 56 16 127/76 (93) 92 07/11/18 02:00 56 16 128/80 (96) 92 07/11/18 01:30 56 19 133/62 (85) 92 07/11/18 01:00 52 19 133/62 (85) 97 07/11/18 00:30 53 19 134/68 (90) 100 07/11/18 00:00 55 07/11/18 00:00 Nasal Cannula 2.0 07/11/18 00:00 98.0 55 18 128/70 (89) 92 07/10/18 23:30 56 19 132/61 (84) 93 07/10/18 23:00 56 18 125/58 (80) 92 07/10/18 22:30 56 18 132/63 (86) 93 07/10/18 22:19 61 134/60 07/10/18 22:00 58 18 117/63 (81) 91 07/10/18 21:30 59 18 127/59 (81) 91 07/10/18 21:00 60 18 123/65 (84) 91 07/10/18 20:30 60 16 128/59 (82) 91 07/10/18 20:00 Nasal Cannula 2.0 07/10/18 20:00 59 07/10/18 20:00 97.9 61 18 120/68 (85) 95 07/10/18 19:30 60 18 108/68 (81) 98 07/10/18 19:17 61 20 98 Nasal Cannula 2.0 28 07/10/18 19:09 98 Nasal Cannula 2.0 28 07/10/18 19:09 95 22 98 Nasal Cannula 2.0 28 07/10/18 19:09 Nasal Cannula 2.0 28 07/10/18 19:00 100 21 128/82 (97) 96 07/10/18 16:55 123 134/83 07/10/18 16:00 120 07/10/18 16:00 98.1 118 21 120/74 (89) 98 Intake and Output 07/10/18 07/11/18 19:00 07:00 Intake Total 635 ml 850 ml Output Total 750 ml 1175 ml Balance -115 ml -325 ml Intake Free Water 200 ml 90 ml IV Total 75 ml 70 ml Tube Feeding 360 ml 690 ml Output Urine Total 750 ml 1175 ml Laboratory Tests 07/11/18 03:50: White Blood Count 7.8, Red Blood Count 3.23L, Hemoglobin 10.3L, Hematocrit 30.3L , Mean Corpuscular Volume 94, Mean Corpuscular Hemoglobin 32.0H, Mean Corpuscular Hemoglobin Concent 34.0, Red Cell Distribution Width 13.8, Platelet Count 298, Mean Platelet Volume 7.2, Neutrophils (%) (Auto) 73.5, Lymphocytes (% ) (Auto) 14.1L, Monocytes (%) (Auto) 9.2, Eosinophils (%) (Auto) 2.5, Basophils (%) (Auto) 0.7, Sodium Level 144, Potassium Level 3.4L, Chloride Level 105, Carbon Dioxide Level 37H, Anion Gap 2L, Blood Urea Nitrogen 42H, Creatinine 1.0 , Estimat Glomerular Filtration Rate , Glucose Level 111H, Calcium Level 9.2, Total Bilirubin 0.3, Aspartate Amino Transf (AST/SGOT) 17, Alanine Aminotransferase (ALT/SGPT) 21, Alkaline Phosphatase 149H, Pro-B-Type Natriuretic Peptide 38284E, Total Protein 6.8, Albumin 2.3L, Globulin 4.5, Albumin/Globulin Ratio 0.5L 07/11/18 09:00: Vancomycin Level Trough 15.2H 07/11/18 12:05: Arterial Blood pH 7.449, Arterial Blood Partial Pressure CO2 54.1H, Arterial Blood Partial Pressure O2 90.1, Arterial Blood HCO3 36.7H, Arterial Blood Oxygen Saturation 96.1, Arterial Blood Base Excess 11.0*H, Guicho Test Positive Height (Feet): 6 Height (Inches): 2.00 Weight (Pounds): 200 General Appearance: lethargic, confused, agitated Bartolome Martin MD Jul 11, 2018 15:26
--- NOTE | 2018-07-11 16:12 | Infectious Diseases Prog Note ---
Assessment/Plan Assessment/Plan ASSESSMENT: The patient is an 88-year-old male with: Fever, Sp Leukocytosis, Sp UTI Ecoli / PSA Bacteremia E Coli doubt pneumonia pleural effusion Chest x-ray, bilateral pulmonary infiltrates and left pleural effusion. LACosis CHF EF: 55% Hypertension Gout Depression Anemia History of tongue cancer PLAN: - Continue the patient on Cefepime d# 1/ 10 and DC Rocephin d # 2 116 Sp IV vancomycin and ertapenem d# 2 11/5 Sp IV amikacin d# 2 -Monitor CBC. -Monitor BMP -Monitor x-rays. -Thoracocentesis per Pulmonary. Subjective Allergies: Coded Allergies: PENICILLINS (Verified Allergy, Intermediate, 07/08/18) Subjective in ICU off of pressors Objective Vital Signs Last 24 Hour Vital Signs Date Time Temp Pulse Resp B/P (MAP) Pulse Ox O2 Delivery O2 Flow Rate FiO2 07/11/18 15:40 53 14 94 07/11/18 15:14 55 17 97 Facial 30 07/11/18 14:59 62 157/72 07/11/18 13:00 60 16 150/89 (109) 100 07/11/18 12:53 56 16 98 Facial 30 07/11/18 12:30 60 15 168/83 (111) 98 07/11/18 12:00 Bi-pap 07/11/18 12:00 98.8 58 14 153/80 (104) 98 07/11/18 11:30 58 15 150/81 (104) 98 07/11/18 11:00 58 21 149/83 (105) 99 07/11/18 10:00 54 16 135/82 (99) 98 07/11/18 09:30 52 21 155/66 (95) 99 07/11/18 09:00 54 19 146/85 (105) 99 07/11/18 08:30 97.8 53 15 169/66 (100) 99 07/11/18 08:00 54 15 158/66 (96) 97 07/11/18 08:00 59 07/11/18 08:00 Nasal Cannula 4.0 07/11/18 07:23 59 17 95 07/11/18 07:00 Bi-pap 30 07/11/18 07:00 56 16 158/61 (93) 95 07/11/18 07:00 99 Bi-pap 30 07/11/18 07:00 54 16 99 Facial 30 07/11/18 06:30 52 16 155/63 (93) 97 07/11/18 06:00 51 16 102/54 (70) 96 07/11/18 05:30 59 16 116/60 (78) 97 07/11/18 05:00 59 16 148/63 (91) 97 07/11/18 04:53 59 23 97 Facial 30 07/11/18 04:30 64 16 162/70 (100) 88 07/11/18 04:00 Nasal Cannula 2.0 07/11/18 04:00 97.7 55 17 153/70 (97) 91 07/11/18 04:00 71 07/11/18 03:30 55 16 154/79 (104) 95 07/11/18 03:00 58 16 127/76 (93) 92 07/11/18 02:30 56 16 127/76 (93) 92 07/11/18 02:00 56 16 128/80 (96) 92 07/11/18 01:30 56 19 133/62 (85) 92 07/11/18 01:00 52 19 133/62 (85) 97 07/11/18 00:30 53 19 134/68 (90) 100 07/11/18 00:00 55 07/11/18 00:00 Nasal Cannula 2.0 07/11/18 00:00 98.0 55 18 128/70 (89) 92 07/10/18 23:30 56 19 132/61 (84) 93 07/10/18 23:00 56 18 125/58 (80) 92 07/10/18 22:30 56 18 132/63 (86) 93 07/10/18 22:19 61 134/60 07/10/18 22:00 58 18 117/63 (81) 91 07/10/18 21:30 59 18 127/59 (81) 91 07/10/18 21:00 60 18 123/65 (84) 91 07/10/18 20:30 60 16 128/59 (82) 91 07/10/18 20:00 Nasal Cannula 2.0 07/10/18 20:00 59 07/10/18 20:00 97.9 61 18 120/68 (85) 95 07/10/18 19:30 60 18 108/68 (81) 98 07/10/18 19:17 61 20 98 Nasal Cannula 2.0 28 07/10/18 19:09 98 Nasal Cannula 2.0 28 07/10/18 19:09 95 22 98 Nasal Cannula 2.0 28 07/10/18 19:09 Nasal Cannula 2.0 28 07/10/18 19:00 100 21 128/82 (97) 96 07/10/18 16:55 123 134/83 Height (Feet): 6 Height (Inches): 2.00 Weight (Pounds): 200 HEENT: atraumatic Respiratory/Chest: normal breath sounds Cardiovascular: regular rhythm Abdomen: soft, non tender Microbiology Date/Time Source Procedure Growth Status 07/10/18 04:00 Sputum Gram Stain - Final Resulted 07/10/18 04:00 Sputum Sputum Culture - Preliminary Resulted Laboratory Tests Test 07/11/18 03:50 07/11/18 09:00 07/11/18 12:05 White Blood Count 7.8 K/UL (4.8-10.8) Red Blood Count 3.23 M/UL (4.70-6.10) L Hemoglobin 10.3 G/DL (14.2-18.0) L Hematocrit 30.3 % (42.0-52.0) L Mean Corpuscular Volume 94 FL (80-99) Mean Corpuscular Hemoglobin 32.0 PG (27.0-31.0) H Mean Corpuscular Hemoglobin Concent 34.0 G/DL (32.0-36.0) Red Cell Distribution Width 13.8 % (11.6-14.8) Platelet Count 298 K/UL (150-450) Mean Platelet Volume 7.2 FL (6.5-10.1) Neutrophils (%) (Auto) 73.5 % (45.0-75.0) Lymphocytes (%) (Auto) 14.1 % (20.0-45.0) L Monocytes (%) (Auto) 9.2 % (1.0-10.0) Eosinophils (%) (Auto) 2.5 % (0.0-3.0) Basophils (%) (Auto) 0.7 % (0.0-2.0) Sodium Level 144 MMOL/L (136-145) Potassium Level 3.4 MMOL/L (3.5-5.1) L Chloride Level 105 MMOL/L (98-107) Carbon Dioxide Level 37 MMOL/L (21-32) H Anion Gap 2 mmol/L (5-15) L Blood Urea Nitrogen 42 mg/dL (7-18) H Creatinine 1.0 MG/DL (0.55-1.30) Estimat Glomerular Filtration Rate mL/min (>60) Glucose Level 111 MG/DL (74-106) H Calcium Level 9.2 MG/DL (8.5-10.1) Total Bilirubin 0.3 MG/DL (0.2-1.0) Aspartate Amino Transf (AST/SGOT) 17 U/L (15-37) Alanine Aminotransferase (ALT/SGPT) 21 U/L (12-78) Alkaline Phosphatase 149 U/L (46-116) H Pro-B-Type Natriuretic Peptide 12141 pg/mL (0-125) H Total Protein 6.8 G/DL (6.4-8.2) Albumin 2.3 G/DL (3.4-5.0) L Globulin 4.5 g/dL Albumin/Globulin Ratio 0.5 (1.0-2.7) L Vancomycin Level Trough 15.2 ug/mL (5.0-12.0) H Arterial Blood pH 7.449 (7.350-7.450) Arterial Blood Partial Pressure CO2 54.1 mmHg (35.0-45.0) H Arterial Blood Partial Pressure O2 90.1 mmHg (75.0-100.0) Arterial Blood HCO3 36.7 mmol/L (22.0-26.0) H Arterial Blood Oxygen Saturation 96.1 % (95-100) Arterial Blood Base Excess 11.0 (-2-2) *H Guicho Test Positive Current Medications Medications (Trade) Dose Ordered Sig/Jorge Route PRN Reason Start Time Stop Time Status Last Admin Dose Admin Acetaminophen (Tylenol) 650 mg Q4H PRN ORAL fever (temp>100.5F) 07/10/18 16:15 08/07/18 16:14 Albuterol/ Ipratropium (Albuterol/ Ipratropium) 3 ml Q4H PRN HHN Shortness of Breath 07/10/18 18:30 07/13/18 06:29 07/10/18 19:09 Ceftriaxone Sodium 1 gm/ Dextrose 55 ml @ 110 mls/hr Q24H IVPB 07/11/18 15:00 07/17/18 14:59 07/11/18 14:58 Diltiazem HCl (Cardizem) 30 mg EVERY 8 HOURS GT 07/11/18 14:00 08/10/18 13:59 07/11/18 14:59 Furosemide (Lasix) 40 mg EVERY 12 HOURS IV 07/10/18 21:00 08/09/18 20:59 07/11/18 09:25 Haloperidol Lactate (Haldol) 5 mg Q6H PRN IM Agitation 07/10/18 17:00 08/08/18 22:59 Morphine Sulfate (Morphine Sulfate) 2 mg Q4H PRN IVP Severe Pain (Pain Scale 7-10) 07/10/18 18:30 07/15/18 06:29 Ondansetron HCl (Zofran) 4 mg Q6H PRN IVP Nausea & Vomiting 07/10/18 16:30 08/07/18 16:29 Pantoprazole (Protonix) 40 mg EVERY 12 HOURS IVP 07/10/18 21:00 08/07/18 20:59 07/11/18 09:25 Potassium Chloride 80 meq/ Sodium Chloride 1,040 ml @ 125 mls/hr Q8H20M IV 07/11/18 08:45 07/11/18 17:04 07/11/18 09:25 Thuan Marti MD Jul 11, 2018 16:12
--- NOTE | 2018-07-11 17:57 | Cardiology Report ---
APPROVED REPORT EKG Measurement Heart [id number] Sinus rhythm with 1st degree AV block Right bundle branch block Left anterior fascicular block Bifascicular block T wave abnormality, consider lateral ischemia Abnormal ECG
[2018-07-11] MEDS: Cefepime HCl 2 GM in D5W 55 ML IVPB SCH (18:01)
[2018-07-11] MEDS: dilTIAZem HCl 30mg tab GT SCH (22:00)
[2018-07-12] VITALS (25 sets, daily range): BP systolic 124–166; BP diastolic 61–98
[2018-07-12 04:27] LABS: BASOPHILS % (AUTO) 1.3 % (0.0-2.0); EOSINOPHILS % (AUTO) 7.8 % (0.0-3.0); HEMATOCRIT 34.8 % (42.0-52.0); HEMOGLOBIN 11.6 G/DL (14.2-18.0); MEAN CORPUSCULAR VOLUME 94 FL (80-99); MONOCYTES % (AUTO) 7.4 % (1.0-10.0); NEUTROPHILS % (AUTO) 71.4 % (45.0-75.0); PLATELET COUNT 317 K/UL (150-450); RED BLOOD COUNT 3.71 M/UL (4.70-6.10); WHITE BLOOD COUNT 7.4 K/UL (4.8-10.8)
[2018-07-12 04:51] LABS: PHOSPHORUS 2.9 MG/DL (2.5-4.9)
[2018-07-12 04:53] LABS: ALANINE AMINOTRANSFERASE 15 U/L (12-78); ALBUMIN 2.4 G/DL (3.4-5.0); ALBUMIN/GLOBULIN RATIO 0.5 (1.0-2.7); ALKALINE PHOSPHATASE 154 U/L (46-116); ANION GAP 5 mmol/L (5-15); ASPARTATE AMINO TRANSFERASE 18 U/L (15-37); BILIRUBIN,TOTAL 0.4 MG/DL (0.2-1.0); BLOOD UREA NITROGEN 31 mg/dL (7-18); CALCIUM 9.3 MG/DL (8.5-10.1); CARBON DIOXIDE 39 MMOL/L (21-32); CHLORIDE 103 MMOL/L (98-107); CREATININE 0.8 MG/DL (0.55-1.30); POTASSIUM 3.1 MMOL/L (3.5-5.1); SODIUM 147 MMOL/L (136-145)
[2018-07-12] MEDS: dilTIAZem HCl 30mg tab GT SCH ×3 (05:38→22:56)
[2018-07-12] MEDS: Pantoprazole Inj IVP SCH ×2 (09:19→20:41)
[2018-07-12] MEDS: Cefepime HCl 2 GM in D5W 55 ML IVPB SCH ×2 (09:19→21:00)
--- NOTE | 2018-07-12 09:57 | Diagnostic Imaging Report ---
Indication: Dyspnea Comparison: 07/11/2018 A single view chest radiograph was obtained. Findings: Vascular prominence and interstitial opacities demonstrated with hazy basilar effusions bilaterally. Heart is enlarged. IMPRESSION: Pulmonary edema. Suspected bilateral pleural effusions. No interval change
--- NOTE | 2018-07-12 10:01 | Pulmonolgy Critical Care Note ---
Critical Care - Asmt/Plan Problems: (1) Septic shock (2) Altered level of consciousness (3) Dementia (4) UTI (urinary tract infection) (5) Pneumonia (6) Feeding by G-tube Respiratory: monitor respiratory rate, adjust FIO2, CXR Cardiac: continue to monitor HR/BP Renal: F/U I&O, keep IV fluid Infectious Disease: add antibiotics Gastrointestinal: continue feedings/current rate Endocrine: monitor blood sugar Hematologic: monitor H/H, transfuse if hgb<8.5 Neurologic: PRN Morphine, keep patient comfortable Affect: PRN ativan Prophylaxis: Heparin Time Spent (Minutes): 40 Notes Reviewed: cardio, renal Discussed with: nurses, consultants, 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 evaluator/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 - Objective Last 24 Hour Vital Signs Date Time Temp Pulse Resp B/P (MAP) Pulse Ox O2 Delivery O2 Flow Rate FiO2 07/12/18 09:00 97 17 142/71 (94) 99 07/12/18 08:00 67 07/12/18 08:00 Bi-pap 07/12/18 08:00 3.0 07/12/18 08:00 97.6 90 14 134/73 (93) 98 07/12/18 07:19 Nasal Cannula 3.0 32 07/12/18 07:18 90 18 97 07/12/18 07:17 99 Nasal Cannula 3.0 32 07/12/18 07:00 90 14 133/73 (93) 99 07/12/18 06:00 106 16 131/98 (109) 99 07/12/18 05:38 109 118/77 07/12/18 05:09 94 15 100 Facial 30 07/12/18 05:00 106 16 152/98 (116) 99 07/12/18 04:00 30 07/12/18 04:00 85 07/12/18 04:00 Bi-pap 07/12/18 04:00 97.8 87 18 147/89 (108) 98 07/12/18 03:05 84 19 100 Facial 30 07/12/18 03:00 87 16 166/78 (107) 99 07/12/18 02:00 71 13 166/74 (104) 99 07/12/18 01:00 65 14 149/76 (100) 99 07/12/18 00:00 Bi-pap 07/12/18 00:00 3.0 07/12/18 00:00 97.9 61 15 158/75 (102) 99 07/12/18 00:00 60 07/11/18 23:00 61 15 157/72 (100) 99 07/11/18 22:00 54 126/89 07/11/18 22:00 54 14 163/87 (112) 99 07/11/18 21:05 54 16 97 Facial 30 07/11/18 21:00 55 14 120/62 (81) 99 07/11/18 20:00 97.8 55 14 140/61 (87) 100 07/11/18 20:00 30 07/11/18 20:00 Bi-pap 07/11/18 20:00 54 07/11/18 19:00 55 13 140/61 (87) 100 07/11/18 18:58 Nasal Cannula 3.0 32 07/11/18 18:58 61 15 98 Facial 30 07/11/18 18:58 98 Bi-pap 30 07/11/18 18:00 97.9 54 13 140/61 (87) 100 07/11/18 17:07 54 15 100 07/11/18 17:00 54 12 154/94 (114) 100 07/11/18 16:00 56 12 145/66 (92) 100 07/11/18 16:00 Bi-pap 07/11/18 16:00 58 07/11/18 15:40 53 14 94 07/11/18 15:14 55 17 97 Facial 30 07/11/18 15:00 56 12 120/66 (84) 100 07/11/18 14:59 62 157/72 07/11/18 14:00 50 14 147/65 (92) 99 07/11/18 13:00 60 16 150/89 (109) 100 07/11/18 12:53 56 16 98 Facial 30 07/11/18 12:30 60 15 168/83 (111) 98 07/11/18 12:00 Bi-pap 07/11/18 12:00 98.8 58 14 153/80 (104) 98 07/11/18 12:00 58 07/11/18 11:30 58 15 150/81 (104) 98 07/11/18 11:00 58 21 149/83 (105) 99 07/11/18 10:00 54 16 135/82 (99) 98 Status: awake Condition: critical HEENT: atraumatic Neck: full ROM Lungs: clear Heart: HR/BP stable, irregular Abdomen: soft, non-tender Extremities: no C/C/E Micro: Microbiology Date/Time Source Procedure Growth Status 07/10/18 04:00 Sputum Gram Stain - Final Complete 07/10/18 04:00 Sputum Sputum Culture - Final NORMAL UPPER RESPIRATORY NICOLA PRESENT Complete Critical Care - Subjective ROS Limited/Unobtainable: Yes Condition: critical EKG Rhythm: Sinus Rhythm FI02: 32 Vent Support Breath Rate: 14 Vent Support Mode: BiLevel Sputum Amount: None Fluids: none Drips: off cardizem drip Tube Feeding Amount: 60 I&O: Intake and Output 07/11/18 07/12/18 19:00 07:00 Intake Total 1995 ml 750 ml Output Total 1260 ml 2050 ml Balance 735 ml -1300 ml Intake Free Water 30 ml IV Total 1275 ml Tube Feeding 720 ml 720 ml Output Urine Total 1260 ml 2050 ml CXR: bilateral pulmonary edema Labs: Laboratory Tests Test 07/11/18 12:05 07/12/18 03:40 Arterial Blood pH 7.449 (7.350-7.450) Arterial Blood Partial Pressure CO2 54.1 mmHg (35.0-45.0) H Arterial Blood Partial Pressure O2 90.1 mmHg (75.0-100.0) Arterial Blood HCO3 36.7 mmol/L (22.0-26.0) H Arterial Blood Oxygen Saturation 96.1 % (95-100) Arterial Blood Base Excess 11.0 (-2-2) *H Guicho Test Positive White Blood Count 7.4 K/UL (4.8-10.8) Red Blood Count 3.71 M/UL (4.70-6.10) L Hemoglobin 11.6 G/DL (14.2-18.0) L Hematocrit 34.8 % (42.0-52.0) L Mean Corpuscular Volume 94 FL (80-99) Mean Corpuscular Hemoglobin 31.3 PG (27.0-31.0) H Mean Corpuscular Hemoglobin Concent 33.3 G/DL (32.0-36.0) Red Cell Distribution Width 14.0 % (11.6-14.8) Platelet Count 317 K/UL (150-450) Mean Platelet Volume 7.2 FL (6.5-10.1) Neutrophils (%) (Auto) 71.4 % (45.0-75.0) Lymphocytes (%) (Auto) 12.0 % (20.0-45.0) L Monocytes (%) (Auto) 7.4 % (1.0-10.0) Eosinophils (%) (Auto) 7.8 % (0.0-3.0) H Basophils (%) (Auto) 1.3 % (0.0-2.0) Sodium Level 147 MMOL/L (136-145) H Potassium Level 3.1 MMOL/L (3.5-5.1) L Chloride Level 103 MMOL/L (98-107) Carbon Dioxide Level 39 MMOL/L (21-32) H Anion Gap 5 mmol/L (5-15) Blood Urea Nitrogen 31 mg/dL (7-18) H Creatinine 0.8 MG/DL (0.55-1.30) Estimat Glomerular Filtration Rate mL/min (>60) Glucose Level 127 MG/DL (74-106) H Calcium Level 9.3 MG/DL (8.5-10.1) Phosphorus Level 2.9 MG/DL (2.5-4.9) Magnesium Level 2.0 MG/DL (1.8-2.4) Total Bilirubin 0.4 MG/DL (0.2-1.0) Aspartate Amino Transf (AST/SGOT) 18 U/L (15-37) Alanine Aminotransferase (ALT/SGPT) 15 U/L (12-78) Alkaline Phosphatase 154 U/L (46-116) H Pro-B-Type Natriuretic Peptide 8451 pg/mL (0-125) H Total Protein 7.3 G/DL (6.4-8.2) Albumin 2.4 G/DL (3.4-5.0) L Globulin 4.9 g/dL Albumin/Globulin Ratio 0.5 (1.0-2.7) L Gertrudis Quintanilla MD Jul 12, 2018 10:01
--- NOTE | 2018-07-12 10:28 | Cardiac Electrophysiology PN ---
Assessment/Plan Assessment/Plan 1. Hypotension due to likely septic shock. Off Levophed. On iv Abx Echocardiogram EF 55% 2. 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 Off Cardizem drip. Likely will need PPM implant. 3. Atrial fib with RVR . On Cardizem 30 po q 8 hrs and coumadin per Rx 4. Trifascicular block with fist degree AVB, RBBB, LAFB 3. History of DVT. Resume Coumadin. INR was 5.5. S/P FFP. Current duplex is negative for DVT. 4. History of respiratory failure, now off BiPAP. 5. Pleural effusion. Improving with Lasix. No thoracentesis now. LASHANDA RN Subjective Subjective In ICU comfortable in NAD. Objective Last 24 Hour Vital Signs Date Time Temp Pulse Resp B/P (MAP) Pulse Ox O2 Delivery O2 Flow Rate FiO2 07/12/18 09:00 97 17 142/71 (94) 99 07/12/18 08:00 67 07/12/18 08:00 Bi-pap 07/12/18 08:00 3.0 07/12/18 08:00 97.6 90 14 134/73 (93) 98 07/12/18 07:19 Nasal Cannula 3.0 32 07/12/18 07:18 90 18 97 07/12/18 07:17 99 Nasal Cannula 3.0 32 07/12/18 07:00 90 14 133/73 (93) 99 07/12/18 06:00 106 16 131/98 (109) 99 07/12/18 05:38 109 118/77 07/12/18 05:09 94 15 100 Facial 30 07/12/18 05:00 106 16 152/98 (116) 99 07/12/18 04:00 30 07/12/18 04:00 85 07/12/18 04:00 Bi-pap 07/12/18 04:00 97.8 87 18 147/89 (108) 98 07/12/18 03:05 84 19 100 Facial 30 07/12/18 03:00 87 16 166/78 (107) 99 07/12/18 02:00 71 13 166/74 (104) 99 07/12/18 01:00 65 14 149/76 (100) 99 07/12/18 00:00 Bi-pap 07/12/18 00:00 3.0 07/12/18 00:00 97.9 61 15 158/75 (102) 99 07/12/18 00:00 60 07/11/18 23:00 61 15 157/72 (100) 99 07/11/18 22:00 54 126/89 07/11/18 22:00 54 14 163/87 (112) 99 07/11/18 21:05 54 16 97 Facial 30 07/11/18 21:00 55 14 120/62 (81) 99 07/11/18 20:00 97.8 55 14 140/61 (87) 100 07/11/18 20:00 30 07/11/18 20:00 Bi-pap 07/11/18 20:00 54 07/11/18 19:00 55 13 140/61 (87) 100 07/11/18 18:58 Nasal Cannula 3.0 32 07/11/18 18:58 61 15 98 Facial 30 07/11/18 18:58 98 Bi-pap 30 07/11/18 18:00 97.9 54 13 140/61 (87) 100 07/11/18 17:07 54 15 100 07/11/18 17:00 54 12 154/94 (114) 100 07/11/18 16:00 56 12 145/66 (92) 100 07/11/18 16:00 Bi-pap 07/11/18 16:00 58 07/11/18 15:40 53 14 94 07/11/18 15:14 55 17 97 Facial 30 07/11/18 15:00 56 12 120/66 (84) 100 07/11/18 14:59 62 157/72 07/11/18 14:00 50 14 147/65 (92) 99 07/11/18 13:00 60 16 150/89 (109) 100 07/11/18 12:53 56 16 98 Facial 30 07/11/18 12:30 60 15 168/83 (111) 98 07/11/18 12:00 Bi-pap 07/11/18 12:00 98.8 58 14 153/80 (104) 98 07/11/18 12:00 58 07/11/18 11:30 58 15 150/81 (104) 98 07/11/18 11:00 58 21 149/83 (105) 99 Intake and Output 07/11/18 07/12/18 19:00 07:00 Intake Total 1995 ml 750 ml Output Total 1260 ml 2050 ml Balance 735 ml -1300 ml Intake Free Water 30 ml IV Total 1275 ml Tube Feeding 720 ml 720 ml Output Urine Total 1260 ml 2050 ml Laboratory Tests Test 07/11/18 12:05 07/12/18 03:40 Arterial Blood pH 7.449 (7.350-7.450) Arterial Blood Partial Pressure CO2 54.1 mmHg (35.0-45.0) H Arterial Blood Partial Pressure O2 90.1 mmHg (75.0-100.0) Arterial Blood HCO3 36.7 mmol/L (22.0-26.0) H Arterial Blood Oxygen Saturation 96.1 % (95-100) Arterial Blood Base Excess 11.0 (-2-2) *H Guicho Test Positive White Blood Count 7.4 K/UL (4.8-10.8) Red Blood Count 3.71 M/UL (4.70-6.10) L Hemoglobin 11.6 G/DL (14.2-18.0) L Hematocrit 34.8 % (42.0-52.0) L Mean Corpuscular Volume 94 FL (80-99) Mean Corpuscular Hemoglobin 31.3 PG (27.0-31.0) H Mean Corpuscular Hemoglobin Concent 33.3 G/DL (32.0-36.0) Red Cell Distribution Width 14.0 % (11.6-14.8) Platelet Count 317 K/UL (150-450) Mean Platelet Volume 7.2 FL (6.5-10.1) Neutrophils (%) (Auto) 71.4 % (45.0-75.0) Lymphocytes (%) (Auto) 12.0 % (20.0-45.0) L Monocytes (%) (Auto) 7.4 % (1.0-10.0) Eosinophils (%) (Auto) 7.8 % (0.0-3.0) H Basophils (%) (Auto) 1.3 % (0.0-2.0) Sodium Level 147 MMOL/L (136-145) H Potassium Level 3.1 MMOL/L (3.5-5.1) L Chloride Level 103 MMOL/L (98-107) Carbon Dioxide Level 39 MMOL/L (21-32) H Anion Gap 5 mmol/L (5-15) Blood Urea Nitrogen 31 mg/dL (7-18) H Creatinine 0.8 MG/DL (0.55-1.30) Estimat Glomerular Filtration Rate mL/min (>60) Glucose Level 127 MG/DL (74-106) H Calcium Level 9.3 MG/DL (8.5-10.1) Phosphorus Level 2.9 MG/DL (2.5-4.9) Magnesium Level 2.0 MG/DL (1.8-2.4) Total Bilirubin 0.4 MG/DL (0.2-1.0) Aspartate Amino Transf (AST/SGOT) 18 U/L (15-37) Alanine Aminotransferase (ALT/SGPT) 15 U/L (12-78) Alkaline Phosphatase 154 U/L (46-116) H Pro-B-Type Natriuretic Peptide 8451 pg/mL (0-125) H Total Protein 7.3 G/DL (6.4-8.2) Albumin 2.4 G/DL (3.4-5.0) L Globulin 4.9 g/dL Albumin/Globulin Ratio 0.5 (1.0-2.7) L Microbiology Date/Time Source Procedure Growth Status 07/10/18 04:00 Sputum Gram Stain - Final Complete 07/10/18 04:00 Sputum Sputum Culture - Final NORMAL UPPER RESPIRATORY NICOLA PRESENT Complete Objective HEAD AND NECK: No JVD. On Ventimask LUNGS: Coarse rhonchi. CARDIOVASCULAR: Regular S1 and S2 with no gallop or murmur. ABDOMEN: Soft. EXTREMITIES: 1+ pitting edema. Gerson Isaacs MD Jul 12, 2018 10:27
[2018-07-12 12:46] LABS: INR 4.1 (0.9-1.1)
[2018-07-12] MEDS ORDERED: COUMADIN4 MG ORAL (14:14)
[2018-07-12] MEDS ORDERED: Tubing IV Secondary IV ONE ×2 (14:23→14:25)
[2018-07-12] MEDS ORDERED: NS 275ml ONE (14:23)
[2018-07-12] MEDS ORDERED: Sterile Water Irrig 1000ml IRRIG ONE (14:25)
[2018-07-12] MEDS ORDERED: VITAMIN C500 MG/11 PO (14:57)
[2018-07-12] MEDS ORDERED: SENNA8.6 M2 PO (14:57)
[2018-07-12] MEDS ORDERED: LASIX20 MG IV (14:57)
[2018-07-12] MEDS ORDERED: DUONEB 0.5-3(2.53 ML HHN (14:57)
[2018-07-12] MEDS ORDERED: LUBRICANT EYE1 EACH OP (14:57)
[2018-07-12] MEDS ORDERED: GUAIFENESI100 MG/5 M ORAL (14:57)
[2018-07-12] MEDS ORDERED: POTASSIUM40 MEQ/11 PO (14:57)
[2018-07-12] MEDS ORDERED: POLYETHYLENE GL17 GM ORAL (14:57)
[2018-07-12] MEDS ORDERED: DIOVAN160 MG ORAL (14:57)
[2018-07-12] MEDS ORDERED: MELATONIN3 MG ORAL (14:57)
[2018-07-12] MEDS ORDERED: REMERON45 M1 ORAL (14:57)
--- NOTE | 2018-07-12 15:01 | Infectious Diseases Prog Note ---
Assessment/Plan Assessment/Plan ASSESSMENT: The patient is an 88-year-old male with: Fever, Sp Leukocytosis, Sp UTI Ecoli / PSA Bacteremia E Coli doubt pneumonia pleural effusion 07/11 CXR: Pulmonary edema. Suspected bilateral pleural effusions. No interval change LACosis CHF EF: 55% Hypertension Gout Depression Anemia History of tongue cancer PLAN: - Continue the patient on Cefepime d# 2 / 10 11/ SP Rocephin d # 2 116 Sp IV vancomycin and ertapenem d# 2 11 Sp IV amikacin d# 2 -Monitor CBC. -Monitor BMP -Monitor x-rays. Subjective Allergies: Coded Allergies: PENICILLINS (Verified Allergy, Intermediate, 07/08/18) Subjective in ICU Afib , back on Cardiaz drip Objective Vital Signs Last 24 Hour Vital Signs Date Time Temp Pulse Resp B/P (MAP) Pulse Ox O2 Delivery O2 Flow Rate FiO2 07/12/18 14:24 66 157/70 07/12/18 14:15 70 14 157/70 (99) 100 07/12/18 13:00 71 13 132/69 (90) 94 07/12/18 12:00 98.6 69 12 157/71 (99) 100 07/12/18 12:00 3.0 07/12/18 12:00 60 07/12/18 12:00 Nasal Cannula 3.0 07/12/18 11:00 96 16 151/77 (101) 94 07/12/18 10:00 106 18 139/74 (95) 96 07/12/18 09:00 97 17 142/71 (94) 99 07/12/18 08:00 67 07/12/18 08:00 Nasal Cannula 3.0 07/12/18 08:00 3.0 07/12/18 08:00 97.6 90 14 134/73 (93) 98 07/12/18 07:19 Nasal Cannula 3.0 32 07/12/18 07:18 90 18 97 07/12/18 07:17 99 Nasal Cannula 3.0 32 07/12/18 07:00 90 14 133/73 (93) 99 07/12/18 06:00 106 16 131/98 (109) 99 07/12/18 05:38 109 118/77 07/12/18 05:09 94 15 100 Facial 30 07/12/18 05:00 106 16 152/98 (116) 99 07/12/18 04:00 30 07/12/18 04:00 85 07/12/18 04:00 Bi-pap 07/12/18 04:00 97.8 87 18 147/89 (108) 98 07/12/18 03:05 84 19 100 Facial 30 07/12/18 03:00 87 16 166/78 (107) 99 07/12/18 02:00 71 13 166/74 (104) 99 07/12/18 01:00 65 14 149/76 (100) 99 07/12/18 00:00 Bi-pap 07/12/18 00:00 3.0 07/12/18 00:00 97.9 61 15 158/75 (102) 99 07/12/18 00:00 60 07/11/18 23:00 61 15 157/72 (100) 99 07/11/18 22:00 54 126/89 07/11/18 22:00 54 14 163/87 (112) 99 07/11/18 21:05 54 16 97 Facial 30 07/11/18 21:00 55 14 120/62 (81) 99 07/11/18 20:00 97.8 55 14 140/61 (87) 100 07/11/18 20:00 30 07/11/18 20:00 Bi-pap 07/11/18 20:00 54 07/11/18 19:00 55 13 140/61 (87) 100 07/11/18 18:58 Nasal Cannula 3.0 32 07/11/18 18:58 61 15 98 Facial 30 07/11/18 18:58 98 Bi-pap 30 07/11/18 18:00 97.9 54 13 140/61 (87) 100 07/11/18 17:07 54 15 100 07/11/18 17:00 54 12 154/94 (114) 100 07/11/18 16:00 56 12 145/66 (92) 100 07/11/18 16:00 Bi-pap 07/11/18 16:00 58 07/11/18 15:40 53 14 94 07/11/18 15:14 55 17 97 Facial 30 Height (Feet): 6 Height (Inches): 2.00 Weight (Pounds): 196 HEENT: anicteric Respiratory/Chest: normal breath sounds Cardiovascular: regular rhythm Abdomen: no organomegaly Microbiology Date/Time Source Procedure Growth Status 07/10/18 04:00 Sputum Gram Stain - Final Complete 07/10/18 04:00 Sputum Sputum Culture - Final NORMAL UPPER RESPIRATORY NICOLA PRESENT Complete Laboratory Tests Test 07/12/18 03:40 07/12/18 12:20 White Blood Count 7.4 K/UL (4.8-10.8) Red Blood Count 3.71 M/UL (4.70-6.10) L Hemoglobin 11.6 G/DL (14.2-18.0) L Hematocrit 34.8 % (42.0-52.0) L Mean Corpuscular Volume 94 FL (80-99) Mean Corpuscular Hemoglobin 31.3 PG (27.0-31.0) H Mean Corpuscular Hemoglobin Concent 33.3 G/DL (32.0-36.0) Red Cell Distribution Width 14.0 % (11.6-14.8) Platelet Count 317 K/UL (150-450) Mean Platelet Volume 7.2 FL (6.5-10.1) Neutrophils (%) (Auto) 71.4 % (45.0-75.0) Lymphocytes (%) (Auto) 12.0 % (20.0-45.0) L Monocytes (%) (Auto) 7.4 % (1.0-10.0) Eosinophils (%) (Auto) 7.8 % (0.0-3.0) H Basophils (%) (Auto) 1.3 % (0.0-2.0) Sodium Level 147 MMOL/L (136-145) H Potassium Level 3.1 MMOL/L (3.5-5.1) L Chloride Level 103 MMOL/L (98-107) Carbon Dioxide Level 39 MMOL/L (21-32) H Anion Gap 5 mmol/L (5-15) Blood Urea Nitrogen 31 mg/dL (7-18) H Creatinine 0.8 MG/DL (0.55-1.30) Estimat Glomerular Filtration Rate mL/min (>60) Glucose Level 127 MG/DL (74-106) H Calcium Level 9.3 MG/DL (8.5-10.1) Phosphorus Level 2.9 MG/DL (2.5-4.9) Magnesium Level 2.0 MG/DL (1.8-2.4) Total Bilirubin 0.4 MG/DL (0.2-1.0) Aspartate Amino Transf (AST/SGOT) 18 U/L (15-37) Alanine Aminotransferase (ALT/SGPT) 15 U/L (12-78) Alkaline Phosphatase 154 U/L (46-116) H Pro-B-Type Natriuretic Peptide 8451 pg/mL (0-125) H Total Protein 7.3 G/DL (6.4-8.2) Albumin 2.4 G/DL (3.4-5.0) L Globulin 4.9 g/dL Albumin/Globulin Ratio 0.5 (1.0-2.7) L Prothrombin Time 40.4 SEC (9.30-11.50) H Prothromb Time International Ratio 4.1 (0.9-1.1) H Current Medications Medications (Trade) Dose Ordered Sig/Jorge Route PRN Reason Start Time Stop Time Status Last Admin Dose Admin Acetaminophen (Tylenol) 650 mg Q4H PRN ORAL fever (temp>100.5F) 07/10/18 16:15 08/07/18 16:14 Albuterol/ Ipratropium (Albuterol/ Ipratropium) 3 ml Q4H PRN HHN Shortness of Breath 07/10/18 18:30 07/13/18 06:29 07/10/18 19:09 Cefepime HCl 2 gm/ Dextrose 55 ml @ 110 mls/hr EVERY 12 HOURS IVPB 07/11/18 18:00 07/18/18 17:59 07/12/18 09:19 Diltiazem HCl (Cardizem) 30 mg EVERY 8 HOURS GT 07/11/18 22:00 08/10/18 13:59 07/12/18 14:24 Furosemide (Lasix) 40 mg EVERY 12 HOURS IV 07/10/18 21:00 08/09/18 20:59 07/12/18 09:19 Haloperidol Lactate (Haldol) 5 mg Q6H PRN IM Agitation 07/10/18 17:00 08/08/18 22:59 Morphine Sulfate (Morphine Sulfate) 2 mg Q4H PRN IVP Severe Pain (Pain Scale 7-10) 07/10/18 18:30 07/15/18 06:29 Ondansetron HCl (Zofran) 4 mg Q6H PRN IVP Nausea & Vomiting 07/10/18 16:30 08/07/18 16:29 Pantoprazole (Protonix) 40 mg EVERY 12 HOURS IVP 07/10/18 21:00 08/07/18 20:59 07/12/18 09:19 Warfarin Sodium (Coumadin per pharmacy) 1 ea DAILY PRN MISC Per rx protocol 07/12/18 11:30 08/11/18 11:29 Thuan Marti MD Jul 12, 2018 15:01
--- NOTE | 2018-07-12 19:09 | Internal Med Progress Note ---
Subjective Date of Service: Jul 12, 2018 Physician Name Dale Hale Attending Physician Elton Infante MD Current Medications Medications (Trade) Dose Ordered Sig/Jorge Route PRN Reason Start Time Stop Time Status Last Admin Dose Admin Acetaminophen (Tylenol) 650 mg Q4H PRN ORAL fever (temp>100.5F) 07/10/18 16:15 08/07/18 16:14 Albuterol/ Ipratropium (Albuterol/ Ipratropium) 3 ml Q4H PRN HHN Shortness of Breath 07/10/18 18:30 07/13/18 06:29 07/10/18 19:09 Cefepime HCl 2 gm/ Dextrose 55 ml @ 110 mls/hr EVERY 12 HOURS IVPB 07/11/18 18:00 07/18/18 17:59 07/12/18 09:19 Diltiazem HCl (Cardizem) 30 mg EVERY 8 HOURS GT 07/11/18 22:00 08/10/18 13:59 07/12/18 14:24 Furosemide (Lasix) 40 mg EVERY 12 HOURS IV 07/10/18 21:00 08/09/18 20:59 07/12/18 09:19 Haloperidol Lactate (Haldol) 5 mg Q6H PRN IM Agitation 07/10/18 17:00 08/08/18 22:59 Morphine Sulfate (Morphine Sulfate) 2 mg Q4H PRN IVP Severe Pain (Pain Scale 7-10) 07/10/18 18:30 07/15/18 06:29 Ondansetron HCl (Zofran) 4 mg Q6H PRN IVP Nausea & Vomiting 07/10/18 16:30 08/07/18 16:29 Pantoprazole (Protonix) 40 mg EVERY 12 HOURS IVP 07/10/18 21:00 08/07/18 20:59 07/12/18 09:19 Warfarin Sodium (Coumadin per pharmacy) 1 ea DAILY PRN MISC Per rx protocol 07/12/18 11:30 08/11/18 11:29 Allergies: Coded Allergies: PENICILLINS (Verified Allergy, Intermediate, 07/08/18) ROS Limited/Unobtainable: Yes Subjective 88 YO M admitted with altered mental status. Now UTI and septic shock. Cover for Int [facility]-Dr Infante ICU. Tolerating nasal canula Objective Last Vital Signs Date Time Temp Pulse Resp B/P (MAP) Pulse Ox O2 Delivery O2 Flow Rate FiO2 07/12/18 18:00 68 16 152/65 (94) 96 07/12/18 16:00 Nasal Cannula 3.0 07/12/18 16:00 98.0 07/12/18 07:19 32 Laboratory Tests Test 07/12/18 03:40 07/12/18 12:20 White Blood Count 7.4 K/UL (4.8-10.8) Red Blood Count 3.71 M/UL (4.70-6.10) L Hemoglobin 11.6 G/DL (14.2-18.0) L Hematocrit 34.8 % (42.0-52.0) L Mean Corpuscular Volume 94 FL (80-99) Mean Corpuscular Hemoglobin 31.3 PG (27.0-31.0) H Mean Corpuscular Hemoglobin Concent 33.3 G/DL (32.0-36.0) Red Cell Distribution Width 14.0 % (11.6-14.8) Platelet Count 317 K/UL (150-450) Mean Platelet Volume 7.2 FL (6.5-10.1) Neutrophils (%) (Auto) 71.4 % (45.0-75.0) Lymphocytes (%) (Auto) 12.0 % (20.0-45.0) L Monocytes (%) (Auto) 7.4 % (1.0-10.0) Eosinophils (%) (Auto) 7.8 % (0.0-3.0) H Basophils (%) (Auto) 1.3 % (0.0-2.0) Sodium Level 147 MMOL/L (136-145) H Potassium Level 3.1 MMOL/L (3.5-5.1) L Chloride Level 103 MMOL/L (98-107) Carbon Dioxide Level 39 MMOL/L (21-32) H Anion Gap 5 mmol/L (5-15) Blood Urea Nitrogen 31 mg/dL (7-18) H Creatinine 0.8 MG/DL (0.55-1.30) Estimat Glomerular Filtration Rate mL/min (>60) Glucose Level 127 MG/DL (74-106) H Calcium Level 9.3 MG/DL (8.5-10.1) Phosphorus Level 2.9 MG/DL (2.5-4.9) Magnesium Level 2.0 MG/DL (1.8-2.4) Total Bilirubin 0.4 MG/DL (0.2-1.0) Aspartate Amino Transf (AST/SGOT) 18 U/L (15-37) Alanine Aminotransferase (ALT/SGPT) 15 U/L (12-78) Alkaline Phosphatase 154 U/L (46-116) H Pro-B-Type Natriuretic Peptide 8451 pg/mL (0-125) H Total Protein 7.3 G/DL (6.4-8.2) Albumin 2.4 G/DL (3.4-5.0) L Globulin 4.9 g/dL Albumin/Globulin Ratio 0.5 (1.0-2.7) L Prothrombin Time 40.4 SEC (9.30-11.50) H Prothromb Time International Ratio 4.1 (0.9-1.1) H Microbiology Date/Time Source Procedure Growth Status 07/10/18 04:00 Sputum Gram Stain - Final Complete 07/10/18 04:00 Sputum Sputum Culture - Final NORMAL UPPER RESPIRATORY NICOLA PRESENT Complete Intake and Output 07/11/18 07/12/18 19:00 07:00 Intake Total 1995 ml 750 ml Output Total 1260 ml 2050 ml Balance 735 ml -1300 ml Intake Free Water 30 ml IV Total 1275 ml Tube Feeding 720 ml 720 ml Output Urine Total 1260 ml 2050 ml Objective General Appearance: WD/WN, moderate distress EENT: PERRL/EOMI, normal ENT inspection Neck: non-tender, normal alignment, supple, normal inspection Cardiovascular: normal peripheral pulses, regular rhythm, no gallop/murmur, no JVD, bradycardia Respiratory/Chest: Nasal canula; chest wall non-tender, crackles/rales, rhonchi - bilaterally, expiratory wheezing Abdomen: normal bowel sounds, non tender, soft, no organomegaly, no mass Extremities: normal range of motion, non-tender 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 Coli Continue cefepime per ID (2) Pneumonia Assessment & Plan: Bilateral. See pulmonary note. Cont ertapenem and vanco (3) Altered level of consciousness (4) UTI (urinary tract infection) Assessment & Plan: E. Coli. Continue cefepime per ID (5) Sepsis Status: not improved Assessment/Plan Social work consult pending for power of deputy attorney general Dale Hale MD Jul 12, 2018 19:09
--- NOTE | 2018-07-12 19:45 | Progress Note ---
DATE: 07/12/2018 SUBJECTIVE: The patient is asleep, arousable, has episodes of anxiety. Still has difficulty swallowing. MENTAL STATUS EXAMINATION: The patient alert, questionable sleep, arousable, has cognitive impairment. Mood is dysphoric. Affect is constricted. Congruent with mood. Thought process is concrete. Thought content, no suicidal, homicidal ideation. ASSESSMENT: Encephalopathy due to PLAN: 1. We will continue the current medication. 2. We will continue to follow and readjust the medications. Bartolome Martin M.D. DR: Marybel JOB#: [id number] CC:
[2018-07-13] VITALS (17 sets, daily range): BP systolic 140–183; BP diastolic 57–98
[2018-07-13 05:08] LABS: BASOPHILS % (AUTO) 1.2 % (0.0-2.0); EOSINOPHILS % (AUTO) 8.8 % (0.0-3.0); HEMATOCRIT 32.5 % (42.0-52.0); HEMOGLOBIN 10.9 G/DL (14.2-18.0); LYMPHOCYTES % (AUTO) 12.3 % (20.0-45.0); MEAN CORPUSCULAR VOLUME 93 FL (80-99); MONOCYTES % (AUTO) 7.7 % (1.0-10.0); NEUTROPHILS % (AUTO) 69.9 % (45.0-75.0); PLATELET COUNT 328 K/UL (150-450); RED BLOOD COUNT 3.48 M/UL (4.70-6.10)
[2018-07-13 05:15] LABS: INR 3.3 (0.9-1.1)
[2018-07-13 05:43] LABS: ALANINE AMINOTRANSFERASE 21 U/L (12-78); ALBUMIN 2.3 G/DL (3.4-5.0); ALBUMIN/GLOBULIN RATIO 0.5 (1.0-2.7); ALKALINE PHOSPHATASE 156 U/L (46-116); ANION GAP 0 mmol/L (5-15); ASPARTATE AMINO TRANSFERASE 27 U/L (15-37); BILIRUBIN,TOTAL 0.3 MG/DL (0.2-1.0); BLOOD UREA NITROGEN 31 mg/dL (7-18); CHLORIDE 103 MMOL/L (98-107); CREATININE 0.8 MG/DL (0.55-1.30); POTASSIUM 2.8 MMOL/L (3.5-5.1); SODIUM 147 MMOL/L (136-145)
[2018-07-13 05:56] LABS: CARBON DIOXIDE 44 MMOL/L (21-32)
[2018-07-13] MEDS: dilTIAZem HCl 30mg tab GT SCH ×3 (06:11→21:38)
[2018-07-13] MEDS: Pantoprazole Inj IVP SCH ×2 (08:32→21:35)
[2018-07-13] MEDS: Cefepime HCl 2 GM in D5W 55 ML IVPB SCH ×2 (08:38→21:37)
--- NOTE | 2018-07-13 11:13 | Pulmonolgy Critical Care Note ---
Critical Care - Asmt/Plan Problems: (1) Septic shock (2) Altered level of consciousness (3) Dementia (4) UTI (urinary tract infection) (5) Pneumonia (6) Feeding by G-tube (7) Rapid atrial fibrillation Respiratory: monitor respiratory rate, adjust FIO2 Cardiac: continue to monitor HR/BP, other - off cardizem drip, heart rate controlled Renal: F/U I&O, check electrolytes Endocrine: monitor blood sugar Hematologic: monitor H/H, transfuse if hgb<8.5 Neurologic: keep patient comfortable Affect: PRN ativan Prophylaxis: Protonix Notes Reviewed: cardio Discussed with: nurses, consultants, housing case managerinternet technology manager - Objective Last 24 Hour Vital Signs Date Time Temp Pulse Resp B/P (MAP) Pulse Ox O2 Delivery O2 Flow Rate FiO2 07/13/18 07:43 Nasal Cannula 2.0 28 07/13/18 07:43 97 Nasal Cannula 2.0 28 07/13/18 07:00 63 15 158/86 (110) 96 07/13/18 06:11 66 183/98 07/13/18 06:00 69 15 178/98 (124) 96 07/13/18 05:00 67 15 183/98 (126) 96 07/13/18 04:00 3.0 07/13/18 04:00 Nasal Cannula 3.0 07/13/18 04:00 98.0 69 15 166/77 (106) 96 07/13/18 04:00 69 07/13/18 03:00 69 15 166/73 (104) 96 07/13/18 02:00 71 15 157/95 (115) 96 07/13/18 01:00 73 15 152/95 (114) 96 07/13/18 00:00 98.6 68 15 140/57 (84) 96 07/13/18 00:00 Nasal Cannula 3.0 07/13/18 00:00 3.0 07/12/18 23:15 71 07/12/18 23:00 68 15 157/87 (110) 96 07/12/18 22:56 73 146/78 07/12/18 22:00 68 15 162/77 (105) 96 07/12/18 21:00 67 16 150/80 (103) 96 07/12/18 20:00 98.0 66 14 158/75 (102) 95 07/12/18 20:00 Nasal Cannula 3.0 07/12/18 20:00 3.0 07/12/18 19:06 70 07/12/18 19:00 68 16 159/72 (101) 96 07/12/18 18:57 Nasal Cannula 3.0 32 07/12/18 18:57 98 Bi-pap 3.0 32 07/12/18 18:00 68 16 152/65 (94) 96 07/12/18 17:00 64 14 147/66 (93) 98 07/12/18 16:00 Nasal Cannula 3.0 07/12/18 16:00 73 07/12/18 16:00 98.0 62 14 144/61 (88) 95 07/12/18 16:00 3.0 07/12/18 15:00 64 16 147/66 (93) 100 07/12/18 14:24 66 157/70 07/12/18 14:00 70 14 157/70 (99) 100 07/12/18 13:00 71 13 132/69 (90) 94 07/12/18 12:00 98.6 69 12 157/71 (99) 100 07/12/18 12:00 3.0 07/12/18 12:00 60 07/12/18 12:00 Nasal Cannula 3.0 Status: awake Condition: critical Neck: full ROM Lungs: chest wall tender Heart: HR/BP stable Abdomen: soft, non-tender Extremities: no C/C/E Critical Care - Subjective ROS Limited/Unobtainable: No ICU Day: 3 Condition: critical, improving EKG Rhythm: Atrial Fibrillation FI02: 28 Vent Support Breath Rate: 14 Vent Support Mode: BiLevel Sputum Amount: None Tube Feeding Amount: 60 I&O: Intake and Output 07/12/18 07/13/18 19:00 07:00 Intake Total 795 ml 945 ml Output Total 1300 ml 2370 ml Balance -505 ml -1425 ml Intake Free Water 50 ml IV Total 55 ml 55 ml Tube Feeding 720 ml 720 ml Other 20 ml 120 ml Output Urine Total 1300 ml 2370 ml CXR: pulmonary edema Labs: Laboratory Tests Test 07/12/18 12:20 07/13/18 04:15 Prothrombin Time 40.4 SEC (9.30-11.50) H 32.9 SEC (9.30-11.50) H Prothromb Time International Ratio 4.1 (0.9-1.1) H 3.3 (0.9-1.1) H White Blood Count 8.0 K/UL (4.8-10.8) Red Blood Count 3.48 M/UL (4.70-6.10) L Hemoglobin 10.9 G/DL (14.2-18.0) L Hematocrit 32.5 % (42.0-52.0) L Mean Corpuscular Volume 93 FL (80-99) Mean Corpuscular Hemoglobin 31.2 PG (27.0-31.0) H Mean Corpuscular Hemoglobin Concent 33.5 G/DL (32.0-36.0) Red Cell Distribution Width 14.0 % (11.6-14.8) Platelet Count 328 K/UL (150-450) Mean Platelet Volume 6.9 FL (6.5-10.1) Neutrophils (%) (Auto) 69.9 % (45.0-75.0) Lymphocytes (%) (Auto) 12.3 % (20.0-45.0) L Monocytes (%) (Auto) 7.7 % (1.0-10.0) Eosinophils (%) (Auto) 8.8 % (0.0-3.0) H Basophils (%) (Auto) 1.2 % (0.0-2.0) Sodium Level 147 MMOL/L (136-145) H Potassium Level 2.8 MMOL/L (3.5-5.1) L Chloride Level 103 MMOL/L (98-107) Carbon Dioxide Level 44 MMOL/L (21-32) *H Anion Gap 0 mmol/L (5-15) L Blood Urea Nitrogen 31 mg/dL (7-18) H Creatinine 0.8 MG/DL (0.55-1.30) Estimat Glomerular Filtration Rate mL/min (>60) Glucose Level 132 MG/DL (74-106) H Calcium Level 9.0 MG/DL (8.5-10.1) Total Bilirubin 0.3 MG/DL (0.2-1.0) Aspartate Amino Transf (AST/SGOT) 27 U/L (15-37) Alanine Aminotransferase (ALT/SGPT) 21 U/L (12-78) Alkaline Phosphatase 156 U/L (46-116) H Pro-B-Type Natriuretic Peptide 6067 pg/mL (0-125) H Total Protein 6.8 G/DL (6.4-8.2) Albumin 2.3 G/DL (3.4-5.0) L Globulin 4.5 g/dL Albumin/Globulin Ratio 0.5 (1.0-2.7) L Gertrudis Quintanilla MD Jul 13, 2018 11:13
--- NOTE | 2018-07-13 12:02 | Cardiac Electrophysiology PN ---
Assessment/Plan Assessment/Plan 1. Hypotension due to likely septic shock. Off Levophed. On iv Abx Echocardiogram EF 55% Now BP is running high despite iv Lasix and Cardizem. 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 3. Atrial fib with RVR . On Cardizem 30 po q 8 hrs and Coumadin per Rx. In SR today 4. Trifascicular block with fist degree AVB, RBBB, LAFB 5. 20 beats of nonsustained VT while in SR on 07/11/18. Repeat Troponin now and in am. 6. Chronic left leg DVT. On Coumadin per RX. INR was 5.5. S/P FFP. Duplex is still positive for DVT. 7. S/P respiratory failure, now off BiPAP. Supposed to be on BIPAP at night but refusing 8. Pleural effusion. Improving with Lasix. No thoracentesis now. 9. Full code DW RN Subjective Subjective In ICU comfortable in NAD. In SR,. No verna and off pressors. Objective Last 24 Hour Vital Signs Date Time Temp Pulse Resp B/P (MAP) Pulse Ox O2 Delivery O2 Flow Rate FiO2 07/13/18 07:43 Nasal Cannula 2.0 28 07/13/18 07:43 97 Nasal Cannula 2.0 28 07/13/18 07:00 63 15 158/86 (110) 96 07/13/18 06:11 66 183/98 07/13/18 06:00 69 15 178/98 (124) 96 07/13/18 05:00 67 15 183/98 (126) 96 07/13/18 04:00 3.0 07/13/18 04:00 Nasal Cannula 3.0 07/13/18 04:00 98.0 69 15 166/77 (106) 96 07/13/18 04:00 69 07/13/18 03:00 69 15 166/73 (104) 96 07/13/18 02:00 71 15 157/95 (115) 96 07/13/18 01:00 73 15 152/95 (114) 96 07/13/18 00:00 98.6 68 15 140/57 (84) 96 07/13/18 00:00 Nasal Cannula 3.0 07/13/18 00:00 3.0 07/12/18 23:15 71 07/12/18 23:00 68 15 157/87 (110) 96 07/12/18 22:56 73 146/78 07/12/18 22:00 68 15 162/77 (105) 96 07/12/18 21:00 67 16 150/80 (103) 96 07/12/18 20:00 98.0 66 14 158/75 (102) 95 07/12/18 20:00 Nasal Cannula 3.0 07/12/18 20:00 3.0 07/12/18 19:06 70 07/12/18 19:00 68 16 159/72 (101) 96 07/12/18 18:57 Nasal Cannula 3.0 32 07/12/18 18:57 98 Bi-pap 3.0 32 07/12/18 18:00 68 16 152/65 (94) 96 07/12/18 17:00 64 14 147/66 (93) 98 07/12/18 16:00 Nasal Cannula 3.0 07/12/18 16:00 73 07/12/18 16:00 98.0 62 14 144/61 (88) 95 07/12/18 16:00 3.0 07/12/18 15:00 64 16 147/66 (93) 100 07/12/18 14:24 66 157/70 07/12/18 14:00 70 14 157/70 (99) 100 07/12/18 13:00 71 13 132/69 (90) 94 07/12/18 12:00 98.6 69 12 157/71 (99) 100 07/12/18 12:00 3.0 07/12/18 12:00 60 07/12/18 12:00 Nasal Cannula 3.0 Intake and Output 07/12/18 07/13/18 19:00 07:00 Intake Total 795 ml 945 ml Output Total 1300 ml 2370 ml Balance -505 ml -1425 ml Intake Free Water 50 ml IV Total 55 ml 55 ml Tube Feeding 720 ml 720 ml Other 20 ml 120 ml Output Urine Total 1300 ml 2370 ml Laboratory Tests Test 07/12/18 12:20 07/13/18 04:15 Prothrombin Time 40.4 SEC (9.30-11.50) H 32.9 SEC (9.30-11.50) H Prothromb Time International Ratio 4.1 (0.9-1.1) H 3.3 (0.9-1.1) H White Blood Count 8.0 K/UL (4.8-10.8) Red Blood Count 3.48 M/UL (4.70-6.10) L Hemoglobin 10.9 G/DL (14.2-18.0) L Hematocrit 32.5 % (42.0-52.0) L Mean Corpuscular Volume 93 FL (80-99) Mean Corpuscular Hemoglobin 31.2 PG (27.0-31.0) H Mean Corpuscular Hemoglobin Concent 33.5 G/DL (32.0-36.0) Red Cell Distribution Width 14.0 % (11.6-14.8) Platelet Count 328 K/UL (150-450) Mean Platelet Volume 6.9 FL (6.5-10.1) Neutrophils (%) (Auto) 69.9 % (45.0-75.0) Lymphocytes (%) (Auto) 12.3 % (20.0-45.0) L Monocytes (%) (Auto) 7.7 % (1.0-10.0) Eosinophils (%) (Auto) 8.8 % (0.0-3.0) H Basophils (%) (Auto) 1.2 % (0.0-2.0) Sodium Level 147 MMOL/L (136-145) H Potassium Level 2.8 MMOL/L (3.5-5.1) L Chloride Level 103 MMOL/L (98-107) Carbon Dioxide Level 44 MMOL/L (21-32) *H Anion Gap 0 mmol/L (5-15) L Blood Urea Nitrogen 31 mg/dL (7-18) H Creatinine 0.8 MG/DL (0.55-1.30) Estimat Glomerular Filtration Rate mL/min (>60) Glucose Level 132 MG/DL (74-106) H Calcium Level 9.0 MG/DL (8.5-10.1) Total Bilirubin 0.3 MG/DL (0.2-1.0) Aspartate Amino Transf (AST/SGOT) 27 U/L (15-37) Alanine Aminotransferase (ALT/SGPT) 21 U/L (12-78) Alkaline Phosphatase 156 U/L (46-116) H Pro-B-Type Natriuretic Peptide 6067 pg/mL (0-125) H Total Protein 6.8 G/DL (6.4-8.2) Albumin 2.3 G/DL (3.4-5.0) L Globulin 4.5 g/dL Albumin/Globulin Ratio 0.5 (1.0-2.7) L Objective HEAD AND NECK: No JVD. On Ventimask LUNGS: Coarse rhonchi. CARDIOVASCULAR: Regular S1 and S2 with no gallop or murmur. ABDOMEN: Soft. EXTREMITIES: 1+ pitting edema. Gerson Isaacs MD Jul 13, 2018 12:02
--- NOTE | 2018-07-13 13:54 | Diagnostic Imaging Report ---
Indication: Dyspnea Comparison: 07/12/2018 A single view chest radiograph was obtained. Findings: There is no change. Bilateral pleural effusions and pulmonary edema again demonstrated. 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
[2018-07-13] MEDS ORDERED: Haloperidol 5mg/ml Inj IM PRN (15:55)
[2018-07-13] MEDS ORDERED: Morphine Sulfate 2mg/ml Inj IVP PRN (15:55)
--- NOTE | 2018-07-13 16:22 | Infectious Diseases Prog Note ---
Assessment/Plan Assessment/Plan ASSESSMENT: The patient is an 88-year-old male with: Fever, Sp Leukocytosis, Sp UTI Ecoli / PSA Bacteremia E Coli doubt pneumonia pleural effusion 07/11 CXR: Pulmonary edema. Suspected bilateral pleural effusions. No interval change LACosis, Sp CHF EF: 55% Hypertension Gout Depression Anemia History of tongue cancer PLAN: - Continue the patient on Cefepime d# 3/10 11/ SP Rocephin d # 2 116 Sp IV vancomycin and ertapenem d# 2 11/ Sp IV amikacin d# 2 -Monitor CBC. -Monitor BMP -Monitor x-rays. Subjective Constitutional: Denies: no symptoms, fever, chills, fatigue, anorexia, drenching sweats, other Allergies: Coded Allergies: PENICILLINS (Verified Allergy, Intermediate, 07/08/18) Subjective transferring out of ICU to [facility] Objective Vital Signs Last 24 Hour Vital Signs Date Time Temp Pulse Resp B/P (MAP) Pulse Ox O2 Delivery O2 Flow Rate FiO2 07/13/18 15:47 172/68 07/13/18 14:00 63 172/68 07/13/18 14:00 63 16 172/68 (102) 99 07/13/18 13:00 63 16 172/87 (115) 99 07/13/18 12:00 98.2 66 14 170/72 (104) 99 07/13/18 12:00 3.0 07/13/18 12:00 Nasal Cannula 3.0 07/13/18 12:00 63 07/13/18 11:00 63 17 170/72 (104) 99 07/13/18 10:00 64 15 167/81 (109) 98 07/13/18 09:00 62 14 169/80 (109) 98 07/13/18 08:00 97.9 61 14 142/71 (94) 99 07/13/18 08:00 Nasal Cannula 3.0 07/13/18 08:00 3.0 07/13/18 08:00 62 07/13/18 07:43 Nasal Cannula 2.0 28 07/13/18 07:43 97 Nasal Cannula 2.0 28 07/13/18 07:00 63 15 158/86 (110) 96 07/13/18 06:11 66 183/98 07/13/18 06:00 69 15 178/98 (124) 96 07/13/18 05:00 67 15 183/98 (126) 96 07/13/18 04:00 3.0 07/13/18 04:00 Nasal Cannula 3.0 07/13/18 04:00 98.0 69 15 166/77 (106) 96 07/13/18 04:00 69 07/13/18 03:00 69 15 166/73 (104) 96 07/13/18 02:00 71 15 157/95 (115) 96 07/13/18 01:00 73 15 152/95 (114) 96 07/13/18 00:00 98.6 68 15 140/57 (84) 96 07/13/18 00:00 Nasal Cannula 3.0 07/13/18 00:00 3.0 07/12/18 23:15 71 07/12/18 23:00 68 15 157/87 (110) 96 07/12/18 22:56 73 146/78 07/12/18 22:00 68 15 162/77 (105) 96 07/12/18 21:00 67 16 150/80 (103) 96 07/12/18 20:00 98.0 66 14 158/75 (102) 95 07/12/18 20:00 Nasal Cannula 3.0 07/12/18 20:00 3.0 07/12/18 19:06 70 07/12/18 19:00 68 16 159/72 (101) 96 07/12/18 18:57 Nasal Cannula 3.0 32 07/12/18 18:57 98 Bi-pap 3.0 32 07/12/18 18:00 68 16 152/65 (94) 96 07/12/18 17:00 64 14 147/66 (93) 98 Height (Feet): 6 Height (Inches): 2.00 Weight (Pounds): 200 HEENT: mucous membranes moist, PERRL Respiratory/Chest: no respiratory distress Cardiovascular: regular rhythm Abdomen: soft, non tender Laboratory Tests Test 07/13/18 04:15 07/13/18 13:10 White Blood Count 8.0 K/UL (4.8-10.8) Red Blood Count 3.48 M/UL (4.70-6.10) L Hemoglobin 10.9 G/DL (14.2-18.0) L Hematocrit 32.5 % (42.0-52.0) L Mean Corpuscular Volume 93 FL (80-99) Mean Corpuscular Hemoglobin 31.2 PG (27.0-31.0) H Mean Corpuscular Hemoglobin Concent 33.5 G/DL (32.0-36.0) Red Cell Distribution Width 14.0 % (11.6-14.8) Platelet Count 328 K/UL (150-450) Mean Platelet Volume 6.9 FL (6.5-10.1) Neutrophils (%) (Auto) 69.9 % (45.0-75.0) Lymphocytes (%) (Auto) 12.3 % (20.0-45.0) L Monocytes (%) (Auto) 7.7 % (1.0-10.0) Eosinophils (%) (Auto) 8.8 % (0.0-3.0) H Basophils (%) (Auto) 1.2 % (0.0-2.0) Prothrombin Time 32.9 SEC (9.30-11.50) H Prothromb Time International Ratio 3.3 (0.9-1.1) H Sodium Level 147 MMOL/L (136-145) H Potassium Level 2.8 MMOL/L (3.5-5.1) L Chloride Level 103 MMOL/L (98-107) Carbon Dioxide Level 44 MMOL/L (21-32) *H Anion Gap 0 mmol/L (5-15) L Blood Urea Nitrogen 31 mg/dL (7-18) H Creatinine 0.8 MG/DL (0.55-1.30) Estimat Glomerular Filtration Rate mL/min (>60) Glucose Level 132 MG/DL (74-106) H Calcium Level 9.0 MG/DL (8.5-10.1) Total Bilirubin 0.3 MG/DL (0.2-1.0) Aspartate Amino Transf (AST/SGOT) 27 U/L (15-37) Alanine Aminotransferase (ALT/SGPT) 21 U/L (12-78) Alkaline Phosphatase 156 U/L (46-116) H Pro-B-Type Natriuretic Peptide 6067 pg/mL (0-125) H Total Protein 6.8 G/DL (6.4-8.2) Albumin 2.3 G/DL (3.4-5.0) L Globulin 4.5 g/dL Albumin/Globulin Ratio 0.5 (1.0-2.7) L Troponin I 0.001 ng/mL (0.000-0.056) Current Medications Medications (Trade) Dose Ordered Sig/Jorge Route PRN Reason Start Time Stop Time Status Last Admin Dose Admin Acetaminophen (Tylenol) 650 mg Q4H PRN ORAL fever (temp>100.5F) 07/13/18 16:15 08/07/18 16:14 Cefepime HCl 2 gm/ Dextrose 55 ml @ 110 mls/hr EVERY 12 HOURS IVPB 07/13/18 21:00 07/18/18 17:59 UNV Clonidine HCl (Catapres Tab) 0.1 mg Q2H PRN ORAL sbp>170 07/13/18 15:54 08/12/18 15:53 Diltiazem HCl (Cardizem) 30 mg EVERY 8 HOURS GT 07/13/18 22:00 08/10/18 13:59 Escitalopram Oxalate (Lexapro) 10 mg DAILY ORAL 07/14/18 09:00 08/13/18 08:59 Furosemide (Lasix) 40 mg EVERY 12 HOURS IV 07/13/18 21:00 08/09/18 20:59 Haloperidol Lactate (Haldol) 5 mg Q6H PRN IM Agitation 07/13/18 15:55 08/08/18 15:54 Morphine Sulfate (Morphine Sulfate) 2 mg Q4H PRN IVP Severe Pain (Pain Scale 7-10) 07/13/18 15:55 07/15/18 15:54 Ondansetron HCl (Zofran) 4 mg Q6H PRN IVP Nausea & Vomiting 07/13/18 16:30 08/07/18 16:29 Pantoprazole (Protonix) 40 mg EVERY 12 HOURS IVP 07/13/18 21:00 08/07/18 20:59 Quetiapine Fumarate (SEROquel) 12.5 mg Q4H PRN ORAL anxiety 07/13/18 15:54 08/12/18 15:53 Warfarin Sodium (Coumadin per pharmacy) 1 ea DAILY PRN MISC Per rx protocol 07/14/18 09:00 08/11/18 11:29 Thuan Marti MD Jul 13, 2018 16:22
--- NOTE | 2018-07-13 16:28 | Internal Med Progress Note ---
Subjective Physician Name Elton Infante Attending Physician Elton Infante MD Current Medications Medications (Trade) Dose Ordered Sig/Jorge Route PRN Reason Start Time Stop Time Status Last Admin Dose Admin Acetaminophen (Tylenol) 650 mg Q4H PRN ORAL fever (temp>100.5F) 07/13/18 16:15 08/07/18 16:14 Cefepime HCl 2 gm/ Dextrose 55 ml @ 110 mls/hr EVERY 12 HOURS IVPB 07/13/18 21:00 07/18/18 17:59 UNV Clonidine HCl (Catapres Tab) 0.1 mg Q2H PRN ORAL sbp>170 07/13/18 15:54 08/12/18 15:53 Diltiazem HCl (Cardizem) 30 mg EVERY 8 HOURS GT 07/13/18 22:00 08/10/18 13:59 Escitalopram Oxalate (Lexapro) 10 mg DAILY ORAL 07/14/18 09:00 08/13/18 08:59 Furosemide (Lasix) 40 mg EVERY 12 HOURS IV 07/13/18 21:00 08/09/18 20:59 Haloperidol Lactate (Haldol) 5 mg Q6H PRN IM Agitation 07/13/18 15:55 08/08/18 15:54 Morphine Sulfate (Morphine Sulfate) 2 mg Q4H PRN IVP Severe Pain (Pain Scale 7-10) 07/13/18 15:55 07/15/18 15:54 Ondansetron HCl (Zofran) 4 mg Q6H PRN IVP Nausea & Vomiting 07/13/18 16:30 08/07/18 16:29 Pantoprazole (Protonix) 40 mg EVERY 12 HOURS IVP 07/13/18 21:00 08/07/18 20:59 Quetiapine Fumarate (SEROquel) 12.5 mg Q4H PRN ORAL anxiety 07/13/18 15:54 08/12/18 15:53 Warfarin Sodium (Coumadin per pharmacy) 1 ea DAILY PRN MISC Per rx protocol 07/14/18 09:00 08/11/18 11:29 Allergies: Coded Allergies: PENICILLINS (Verified Allergy, Intermediate, 07/08/18) Subjective awake, responsive, NAD, No chest pain or SOB, just transfer out of ICU. Objective Last Vital Signs Date Time Temp Pulse Resp B/P (MAP) Pulse Ox O2 Delivery O2 Flow Rate FiO2 07/13/18 15:47 172/68 07/13/18 14:00 63 07/13/18 14:00 16 99 07/13/18 12:00 98.2 07/13/18 12:00 3.0 07/13/18 12:00 Nasal Cannula 07/13/18 07:43 28 Laboratory Tests Test 07/13/18 04:15 07/13/18 13:10 White Blood Count 8.0 K/UL (4.8-10.8) Red Blood Count 3.48 M/UL (4.70-6.10) L Hemoglobin 10.9 G/DL (14.2-18.0) L Hematocrit 32.5 % (42.0-52.0) L Mean Corpuscular Volume 93 FL (80-99) Mean Corpuscular Hemoglobin 31.2 PG (27.0-31.0) H Mean Corpuscular Hemoglobin Concent 33.5 G/DL (32.0-36.0) Red Cell Distribution Width 14.0 % (11.6-14.8) Platelet Count 328 K/UL (150-450) Mean Platelet Volume 6.9 FL (6.5-10.1) Neutrophils (%) (Auto) 69.9 % (45.0-75.0) Lymphocytes (%) (Auto) 12.3 % (20.0-45.0) L Monocytes (%) (Auto) 7.7 % (1.0-10.0) Eosinophils (%) (Auto) 8.8 % (0.0-3.0) H Basophils (%) (Auto) 1.2 % (0.0-2.0) Prothrombin Time 32.9 SEC (9.30-11.50) H Prothromb Time International Ratio 3.3 (0.9-1.1) H Sodium Level 147 MMOL/L (136-145) H Potassium Level 2.8 MMOL/L (3.5-5.1) L Chloride Level 103 MMOL/L (98-107) Carbon Dioxide Level 44 MMOL/L (21-32) *H Anion Gap 0 mmol/L (5-15) L Blood Urea Nitrogen 31 mg/dL (7-18) H Creatinine 0.8 MG/DL (0.55-1.30) Estimat Glomerular Filtration Rate mL/min (>60) Glucose Level 132 MG/DL (74-106) H Calcium Level 9.0 MG/DL (8.5-10.1) Total Bilirubin 0.3 MG/DL (0.2-1.0) Aspartate Amino Transf (AST/SGOT) 27 U/L (15-37) Alanine Aminotransferase (ALT/SGPT) 21 U/L (12-78) Alkaline Phosphatase 156 U/L (46-116) H Pro-B-Type Natriuretic Peptide 6067 pg/mL (0-125) H Total Protein 6.8 G/DL (6.4-8.2) Albumin 2.3 G/DL (3.4-5.0) L Globulin 4.5 g/dL Albumin/Globulin Ratio 0.5 (1.0-2.7) L Troponin I 0.001 ng/mL (0.000-0.056) Intake and Output 07/12/18 07/13/18 19:00 07:00 Intake Total 795 ml 945 ml Output Total 1300 ml 2370 ml Balance -505 ml -1425 ml Intake Free Water 50 ml IV Total 55 ml 55 ml Tube Feeding 720 ml 720 ml Other 20 ml 120 ml Output Urine Total 1300 ml 2370 ml Objective General: No acute distress, awake and responsive HEENT: NCAT, sclera anicteric, PERRL, EOMI. Neck: Supple, no significant jugular venous distention, Lungs: fair inspiratory effort, decrease air on bases, no Wheeze or Rales. Heart: Regular rate and rhythm, normal S1/S2, no murmurs Abdomen: soft, nontender, nondistended. Normoactive bowel sounds, mild obesity, PEG site intact. : Sales cath Extremities: No Cyanosis , clubbing , Bilateral feet edema. Neuro: CN 2-12 intact, Able to move all extremities Skin: warm, no rashes Assessment/Plan Assessment/Plan Fever, Sp Leukocytosis, Sp UTI Ecoli / PSA Bacteremia E Coli doubt pneumonia pleural effusion CHF EF: 55% Hypertension Gout Depression Anemia History of tongue cancer PLAN: - Continue the patient on Cefepime d# 2 / 10 11/7 SP Rocephin d # 2 116 Sp IV vancomycin and ertapenem d# 2 11/ Sp IV amikacin d# 2 -Monitor labs and cultures. -Monitor x-rays. Elton Infante MD Jul 13, 2018 16:28
--- NOTE | 2018-07-13 18:31 | Progress Note ---
DATE: 07/13/2018 SUBJECTIVE: The patient is more alert and more engaged. He is worried about dying. The patient has severe anxiety today. Still disoriented. He knows he is in the hospital and he is hopeless and helpless. He stated that he is feeling very depressed today. MENTAL STATUS EXAMINATION: The patient had waxing and waning consciousness. Disoriented. Mood is anxious and depressed. Affect is constricted and congruent with mood. Thought process is disorganized. Thought content, no suicidal or homicidal ideations. ASSESSMENT: 1. Dementia. 2. Encephalopathy due to metabolic disorder. 3. Urinary tract infection. PLAN: 1. The patient will be started on Lexapro 10 mg in the morning. 2. We will start Seroquel p.r.n. for agitation. 3. We will continue to follow and readjust the medications. Bartolome Martin M.D. DR: AMINAH JOB#: [id number] CC:
[2018-07-14] VITALS: BP 155/72
[2018-07-14 04:00] VITALS: BP 128/75
[2018-07-14 05:36] LABS: BASOPHILS % (AUTO) 0.8 % (0.0-2.0); EOSINOPHILS % (AUTO) 14.9 % (0.0-3.0); HEMATOCRIT 31.3 % (42.0-52.0); HEMOGLOBIN 10.5 G/DL (14.2-18.0); LYMPHOCYTES % (AUTO) 14.7 % (20.0-45.0); MEAN CORPUSCULAR VOLUME 93 FL (80-99); MONOCYTES % (AUTO) 4.7 % (1.0-10.0); PLATELET COUNT 357 K/UL (150-450); RED BLOOD COUNT 3.35 M/UL (4.70-6.10); RED CELL DISTRIBUTION WIDTH 13.8 % (11.6-14.8); WHITE BLOOD COUNT 7.6 K/UL (4.8-10.8)
[2018-07-14 05:42] LABS: INR 2.5 (0.9-1.1)
[2018-07-14 05:47] LABS: ALANINE AMINOTRANSFERASE 30 U/L (12-78); ALBUMIN 2.2 G/DL (3.4-5.0); ALBUMIN/GLOBULIN RATIO 0.5 (1.0-2.7); ALKALINE PHOSPHATASE 153 U/L (46-116); ASPARTATE AMINO TRANSFERASE 29 U/L (15-37); BILIRUBIN,TOTAL 0.3 MG/DL (0.2-1.0); BLOOD UREA NITROGEN 28 mg/dL (7-18); CALCIUM 9.1 MG/DL (8.5-10.1); CHLORIDE 101 MMOL/L (98-107); CREATININE 0.7 MG/DL (0.55-1.30); PHOSPHORUS 2.3 MG/DL (2.5-4.9); POTASSIUM 2.7 MMOL/L (3.5-5.1); SODIUM 148 MMOL/L (136-145)
[2018-07-14 05:48] LABS: CARBON DIOXIDE > 45 MMOL/L (21-32)
[2018-07-14] MEDS: dilTIAZem HCl 30mg tab GT SCH ×3 (05:48→21:24)
--- NOTE | 2018-07-14 07:29 | Pulmonology Progress Note ---
Assessment/Plan Assessment/Plan ASSESSMENT acute respiratory failure requiring BiPAP - Septic shock- resolved Sepsis with Escherichia coli bacteremia Escherichia coli and Pseudomonas aeruginosa UTI Probably PNA Left pleural effusion Tachy-bradycardia syndrome Atrial fibrillation with rapid ventricular response Trifascicular block ( 1 st degree AV block, RBBB, LAFB) Altered level of consciousness , secondary to acute toxic encephalopathy due to septic shock Coagulopathy, status post 2 units of FFP Anemia Congestive heart failure (EF 55%) Hypertension Moderate pulmonary hypertension History of tongue cancer Dysphagia G-tube Electrolyte imbalance : hypo K, hypo P, Constipation Depression PLAN OF CARE [facility] Off pressors need BiPAP at HS and prn mitochondrial disorders counselor on importance with BiPAP compliance supplemental O2 to keep pulse above 92%, pulm. toilet Cardio follows likely will need PPM hypotension was likely secondary to septic shock -resolved rate control with Cardizem , a/coagulation with Coumadin , keep INR in therapeutic range 2-3 ( 2.5 today ) Echo with pEF 55% and moderate pulm HTN Diuretic , monitor renal parameters and volumes, fup with CXR, pro BNP with small trend down no need for thoracentesis at this time Venous duplex BLE negative Abx as per ID blood cx+ Escherichia coli , urine culture +E coli, Pseudomonas influenza screen test negative sputum cx negative repeated urine cx+ Ecoli strict aspiration precaution G-tube feeding ,monitor tolerance monitor H&H with goal to keep hemoglobin above 7% INR per pharmacy monitoring for Coumadin , s/p 2 units FFP due to initial coagulopathy presentation altered LOC secondary to acute toxic encephalopathy due to septic shock replace K and P today, Mg stable, fup with e/lytes and correct further prn psychiatrist follows supportive care pain management bowel regimen instituted case discussed and evaluated by supervising physician Subjective Allergies: Coded Allergies: PENICILLINS (Verified Allergy, Intermediate, 07/08/18) Subjective transferred to [facility] K-2.7 declined BiPAP at night, non compliant BP stable verna in 50th nurse reported no BM x few days Objective Last 24 Hour Vital Signs Date Time Temp Pulse Resp B/P (MAP) Pulse Ox O2 Delivery O2 Flow Rate FiO2 07/14/18 05:48 66 128/75 07/14/18 04:00 Nasal Cannula 3.0 07/14/18 04:00 97.9 61 20 128/75 (92) 98 07/14/18 03:39 57 07/14/18 00:00 Nasal Cannula 3.0 07/14/18 00:00 98.6 57 22 155/72 (99) 96 07/13/18 23:35 53 07/13/18 21:44 97 Nasal Cannula 2.0 28 07/13/18 21:44 Nasal Cannula 2.0 28 07/13/18 21:44 63 20 Nasal Cannula 2.0 28 07/13/18 21:38 60 147/76 07/13/18 20:00 Nasal Cannula 3.0 07/13/18 20:00 98.8 60 24 147/76 (99) 99 07/13/18 19:43 57 07/13/18 16:00 3.0 07/13/18 16:00 97.9 63 16 153/80 (104) 97 07/13/18 16:00 Nasal Cannula 3.0 07/13/18 16:00 66 07/13/18 15:47 172/68 07/13/18 14:00 63 172/68 07/13/18 14:00 63 16 172/68 (102) 99 07/13/18 13:00 63 16 172/87 (115) 99 07/13/18 12:00 98.2 66 14 170/72 (104) 99 07/13/18 12:00 3.0 07/13/18 12:00 Nasal Cannula 3.0 07/13/18 12:00 63 07/13/18 11:00 63 17 170/72 (104) 99 07/13/18 10:00 64 15 167/81 (109) 98 07/13/18 09:00 62 14 169/80 (109) 98 07/13/18 08:00 97.9 61 14 142/71 (94) 99 07/13/18 08:00 Nasal Cannula 3.0 07/13/18 08:00 3.0 07/13/18 08:00 62 07/13/18 07:43 Nasal Cannula 2.0 28 07/13/18 07:43 97 Nasal Cannula 2.0 28 Intake and Output 07/13/18 07/14/18 18:59 06:59 Intake Total 640 ml 920 ml Output Total 1655 ml 1800 ml Balance -1015 ml -880 ml Intake Free Water 100 ml IV Total 100 ml Tube Feeding 540 ml 720 ml Other 100 ml Output Urine Total 1655 ml 1800 ml General Appearance: no acute distress, other - bedridden male in NAD , awake, responsive HEENT: normocephalic, atraumatic, other - O2 via NC Respiratory/Chest: no respiratory distress, decreased breath sounds Cardiovascular: no JVD, bradycardia Abdomen: normal bowel sounds, soft, non tender, other - GT with feeding Extremities: pedal pulses normal, other - +2 edema BLE Neurologic/Psychiatric: abnormal gait, alert, responsive Musculoskeletal: atrophy - BLE Laboratory Tests 07/13/18 13:10: Troponin I 0.001 07/14/18 03:49: White Blood Count 7.6, Red Blood Count 3.35L, Hemoglobin 10.5L, Hematocrit 31.3L , Mean Corpuscular Volume 93, Mean Corpuscular Hemoglobin 31.3H, Mean Corpuscular Hemoglobin Concent 33.5, Red Cell Distribution Width 13.8, Platelet Count 357, Mean Platelet Volume 6.7, Neutrophils (%) (Auto) 65.0, Lymphocytes (% ) (Auto) 14.7L, Monocytes (%) (Auto) 4.7, Eosinophils (%) (Auto) 14.9H, Basophils (%) (Auto) 0.8, Prothrombin Time 24.8H, Prothromb Time International Ratio 2.5H, Sodium Level 148H, Potassium Level 2.7*L, Chloride Level 101, Carbon Dioxide Level > 45*H, Blood Urea Nitrogen 28H, Creatinine 0.7, Estimat Glomerular Filtration Rate , Glucose Level 130H, Calcium Level 9.1, Phosphorus Level 2.3L, Magnesium Level 1.8, Total Bilirubin 0.3, Aspartate Amino Transf ( AST/SGOT) 29, Alanine Aminotransferase (ALT/SGPT) 30, Alkaline Phosphatase 153H , Pro-B-Type Natriuretic Peptide 5062H, Total Protein 6.8, Albumin 2.2L, Globulin 4.6, Albumin/Globulin Ratio 0.5L Current Medications Medications (Trade) Dose Ordered Sig/Jorge Route PRN Reason Start Time Stop Time Status Last Admin Dose Admin Acetaminophen (Tylenol) 650 mg Q4H PRN ORAL fever (temp>100.5F) 07/13/18 16:15 08/07/18 16:14 Cefepime HCl 2 gm/ Dextrose 55 ml @ 110 mls/hr EVERY 12 HOURS IVPB 07/13/18 21:00 07/18/18 17:59 07/13/18 21:37 Clonidine HCl (Catapres Tab) 0.1 mg Q2H PRN ORAL sbp>170 07/13/18 15:54 08/12/18 15:53 Diltiazem HCl (Cardizem) 30 mg EVERY 8 HOURS GT 07/13/18 22:00 08/10/18 13:59 07/14/18 05:48 Escitalopram Oxalate (Lexapro) 10 mg DAILY ORAL 07/14/18 09:00 08/13/18 08:59 Furosemide (Lasix) 40 mg EVERY 12 HOURS IV 07/13/18 21:00 08/09/18 20:59 07/13/18 21:43 Haloperidol Lactate (Haldol) 5 mg Q6H PRN IM Agitation 07/13/18 15:55 08/08/18 15:54 Morphine Sulfate (Morphine Sulfate) 2 mg Q4H PRN IVP Severe Pain (Pain Scale 7-10) 07/13/18 15:55 07/15/18 15:54 Ondansetron HCl (Zofran) 4 mg Q6H PRN IVP Nausea & Vomiting 07/13/18 16:30 08/07/18 16:29 Pantoprazole (Protonix) 40 mg EVERY 12 HOURS IVP 07/13/18 21:00 08/07/18 20:59 07/13/18 21:35 Quetiapine Fumarate (SEROquel) 12.5 mg Q4H PRN ORAL anxiety 07/13/18 15:54 08/12/18 15:53 Warfarin Sodium (Coumadin per pharmacy) 1 ea DAILY PRN MISC Per rx protocol 07/14/18 09:00 08/11/18 11:29 Warfarin Sodium (Coumadin) 2 mg COUMADIN ORAL 07/14/18 17:00 07/14/18 17:01 Cintia Wilhelm NP Jul 14, 2018 07:29
[2018-07-14 08:00] VITALS: BP 147/72
[2018-07-14] MEDS: Pantoprazole Inj IVP SCH ×2 (08:21→21:18)
[2018-07-14] MEDS: Cefepime HCl 2 GM in D5W 55 ML IVPB SCH ×2 (08:24→21:19)
[2018-07-14] MEDS ORDERED: Potassium Phosphate 30 MM in Sodium Chloride 500ML 550 ML IV ONE (09:00)
--- NOTE | 2018-07-14 09:04 | Diagnostic Imaging Report ---
INDICATION: Dyspnea COMPARISON: Chest x-ray dated 07/08/18 FINDINGS: Single frontal view bilateral lower lung zone opacities, left greater than right. The heart size cannot be evaluated. Atherosclerotic vascular disease. The visualized osseous structures are within normal limits. IMPRESSION: Bilateral lower lung zone opacities, left greater than right.
[2018-07-14] MEDS ORDERED: Milk of Magnesia 30ml Ud ORAL SCH (10:30)
--- NOTE | 2018-07-14 11:19 | Infectious Diseases Prog Note ---
Assessment/Plan Assessment/Plan ASSESSMENT: The patient is an 88-year-old male with: Fever, Sp Leukocytosis, Sp UTI Ecoli / PSA Bacteremia E Coli doubt pneumonia pleural effusion 07/11 CXR: Pulmonary edema. Suspected bilateral pleural effusions. No interval change LACosis, Sp CHF EF: 55% Hypertension Gout Depression Anemia History of tongue cancer PLAN: - Continue the patient on Cefepime d# 12/12 -07/11 SP Rocephin d # 2 -07/10 Sp IV vancomycin and ertapenem d# 2 -07/09 Sp IV amikacin d# 2 -Monitor CBC. -Monitor BMP -Monitor x-rays. Subjective Allergies: Coded Allergies: PENICILLINS (Verified Allergy, Intermediate, 07/08/18) Subjective afebrile no leukocytosis Objective Vital Signs Last 24 Hour Vital Signs Date Time Temp Pulse Resp B/P (MAP) Pulse Ox O2 Delivery O2 Flow Rate FiO2 07/14/18 09:02 58 07/14/18 08:12 69 20 Nasal Cannula 2.0 28 07/14/18 08:12 98 Nasal Cannula 2.0 28 07/14/18 08:12 Nasal Cannula 2.0 28 07/14/18 08:00 Nasal Cannula 3.0 07/14/18 08:00 97.9 62 20 147/72 (97) 97 07/14/18 05:48 66 128/75 07/14/18 04:00 Nasal Cannula 3.0 07/14/18 04:00 97.9 61 20 128/75 (92) 98 07/14/18 03:39 57 07/14/18 00:00 Nasal Cannula 3.0 07/14/18 00:00 98.6 57 22 155/72 (99) 96 07/13/18 23:35 53 07/13/18 21:44 97 Nasal Cannula 2.0 28 07/13/18 21:44 Nasal Cannula 2.0 28 07/13/18 21:44 63 20 Nasal Cannula 2.0 28 07/13/18 21:38 60 147/76 07/13/18 20:00 Nasal Cannula 3.0 07/13/18 20:00 98.8 60 24 147/76 (99) 99 07/13/18 19:43 57 07/13/18 16:00 3.0 07/13/18 16:00 97.9 63 16 153/80 (104) 97 07/13/18 16:00 Nasal Cannula 3.0 07/13/18 16:00 66 07/13/18 15:47 172/68 07/13/18 14:00 63 172/68 07/13/18 14:00 63 16 172/68 (102) 99 07/13/18 13:00 63 16 172/87 (115) 99 07/13/18 12:00 98.2 66 14 170/72 (104) 99 07/13/18 12:00 3.0 07/13/18 12:00 Nasal Cannula 3.0 07/13/18 12:00 63 Height (Feet): 6 Height (Inches): 2.00 Weight (Pounds): 200 Objective General Appearance: no acute distress, other - bedridden male in NAD , awake, responsive HEENT: normocephalic, atraumatic, other - O2 via NC Respiratory/Chest: no respiratory distress, decreased breath sounds Cardiovascular: no JVD, bradycardia Abdomen: normal bowel sounds, soft, non tender, other - GT with feeding Extremities: pedal pulses normal, other - +2 edema BLE Neurologic/Psychiatric: abnormal gait, alert, responsive Musculoskeletal: atrophy - BLE Laboratory Tests Test 07/13/18 13:10 07/14/18 03:49 Troponin I 0.001 ng/mL (0.000-0.056) White Blood Count 7.6 K/UL (4.8-10.8) Red Blood Count 3.35 M/UL (4.70-6.10) L Hemoglobin 10.5 G/DL (14.2-18.0) L Hematocrit 31.3 % (42.0-52.0) L Mean Corpuscular Volume 93 FL (80-99) Mean Corpuscular Hemoglobin 31.3 PG (27.0-31.0) H Mean Corpuscular Hemoglobin Concent 33.5 G/DL (32.0-36.0) Red Cell Distribution Width 13.8 % (11.6-14.8) Platelet Count 357 K/UL (150-450) Mean Platelet Volume 6.7 FL (6.5-10.1) Neutrophils (%) (Auto) 65.0 % (45.0-75.0) Lymphocytes (%) (Auto) 14.7 % (20.0-45.0) L Monocytes (%) (Auto) 4.7 % (1.0-10.0) Eosinophils (%) (Auto) 14.9 % (0.0-3.0) H Basophils (%) (Auto) 0.8 % (0.0-2.0) Prothrombin Time 24.8 SEC (9.30-11.50) H Prothromb Time International Ratio 2.5 (0.9-1.1) H Sodium Level 148 MMOL/L (136-145) H Potassium Level 2.7 MMOL/L (3.5-5.1) *L Chloride Level 101 MMOL/L (98-107) Carbon Dioxide Level > 45 MMOL/L (21-32) *H Blood Urea Nitrogen 28 mg/dL (7-18) H Creatinine 0.7 MG/DL (0.55-1.30) Estimat Glomerular Filtration Rate mL/min (>60) Glucose Level 130 MG/DL (74-106) H Calcium Level 9.1 MG/DL (8.5-10.1) Phosphorus Level 2.3 MG/DL (2.5-4.9) L Magnesium Level 1.8 MG/DL (1.8-2.4) Total Bilirubin 0.3 MG/DL (0.2-1.0) Aspartate Amino Transf (AST/SGOT) 29 U/L (15-37) Alanine Aminotransferase (ALT/SGPT) 30 U/L (12-78) Alkaline Phosphatase 153 U/L (46-116) H Pro-B-Type Natriuretic Peptide 5062 pg/mL (0-125) H Total Protein 6.8 G/DL (6.4-8.2) Albumin 2.2 G/DL (3.4-5.0) L Globulin 4.6 g/dL Albumin/Globulin Ratio 0.5 (1.0-2.7) L Current Medications Medications (Trade) Dose Ordered Sig/Jorge Route PRN Reason Start Time Stop Time Status Last Admin Dose Admin Acetaminophen (Tylenol) 650 mg Q4H PRN ORAL fever (temp>100.5F) 07/13/18 16:15 08/07/18 16:14 Albuterol/ Ipratropium (Albuterol/ Ipratropium) 3 ml Q4HRT PRN HHN sob 07/14/18 07:30 11/15/18 07:29 Cefepime HCl 2 gm/ Dextrose 55 ml @ 110 mls/hr EVERY 12 HOURS IVPB 07/13/18 21:00 07/18/18 17:59 07/14/18 08:24 Clonidine HCl (Catapres Tab) 0.1 mg Q2H PRN ORAL sbp>170 07/13/18 15:54 08/12/18 15:53 Diltiazem HCl (Cardizem) 30 mg EVERY 8 HOURS GT 07/13/18 22:00 08/10/18 13:59 07/14/18 05:48 Escitalopram Oxalate (Lexapro) 10 mg DAILY ORAL 07/14/18 09:00 08/13/18 08:59 07/14/18 08:22 Furosemide (Lasix) 40 mg EVERY 12 HOURS IV 07/13/18 21:00 08/09/18 20:59 07/14/18 08:22 Haloperidol Lactate (Haldol) 5 mg Q6H PRN IM Agitation 07/13/18 15:55 08/08/18 15:54 Magnesium Hydroxide (Mom) 30 ml ONCE ORAL 07/14/18 10:30 07/14/18 11:30 Morphine Sulfate (Morphine Sulfate) 2 mg Q4H PRN IVP Severe Pain (Pain Scale 7-10) 07/13/18 15:55 07/15/18 15:54 Ondansetron HCl (Zofran) 4 mg Q6H PRN IVP Nausea & Vomiting 07/13/18 16:30 08/07/18 16:29 Pantoprazole (Protonix) 40 mg EVERY 12 HOURS IVP 07/13/18 21:00 08/07/18 20:59 07/14/18 08:21 Polyethylene Glycol (Miralax) 17 gm BEDTIME ORAL 07/14/18 21:00 08/13/18 20:59 Potassium Phosphate 30 mm/ Sodium Chloride 560 ml @ 125 mls/hr ONCE ONCE IV 07/14/18 09:00 07/14/18 13:28 07/14/18 08:42 Potassium Chloride (K-Dur) 40 meq DAILY ORAL 07/15/18 09:00 08/13/18 08:59 Quetiapine Fumarate (SEROquel) 12.5 mg Q4H PRN ORAL anxiety 07/13/18 15:54 08/12/18 15:53 Warfarin Sodium (Coumadin per pharmacy) 1 ea DAILY PRN MISC Per rx protocol 07/14/18 09:00 08/11/18 11:29 Warfarin Sodium (Coumadin) 2 mg COUMADIN ORAL 07/14/18 17:00 07/14/18 17:01 Paulina Bautista M.D. Jul 14, 2018 11:19
[2018-07-14 12:00] VITALS: BP 151/80
--- NOTE | 2018-07-14 12:50 | Cardiac Electrophysiology PN ---
Assessment/Plan Assessment/Plan 1. Hypotension due to likely septic shock. Resolved. On iv Abx Echocardiogram EF 55% BP is running high despite iv Lasix and Cardizem. 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 3. Atrial fib with RVR . On Cardizem 30 po q 8 hrs and Coumadin per Rx. 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 20 beats of nonsustained VT while in SR on 07/11/18. Repeat Troponin now and in am. 6. Chronic left leg DVT. On Coumadin per RX. Duplex is still positive for DVT. 7. S/P respiratory failure, now off BiPAP. 8. Pleural effusion. Improving with Lasix. No thoracentesis now. 9. Full code 10. S/P PEG DW RN Subjective Subjective Transferred out of ICU comfortable in NAD. In SR,. No verna Objective Last 24 Hour Vital Signs Date Time Temp Pulse Resp B/P (MAP) Pulse Ox O2 Delivery O2 Flow Rate FiO2 07/14/18 12:00 Nasal Cannula 3.0 07/14/18 12:00 97.9 67 19 151/80 (103) 95 07/14/18 09:02 58 07/14/18 08:12 69 20 Nasal Cannula 2.0 28 07/14/18 08:12 98 Nasal Cannula 2.0 28 07/14/18 08:12 Nasal Cannula 2.0 28 07/14/18 08:00 Nasal Cannula 3.0 07/14/18 08:00 97.9 62 20 147/72 (97) 97 07/14/18 05:48 66 128/75 07/14/18 04:00 Nasal Cannula 3.0 07/14/18 04:00 97.9 61 20 128/75 (92) 98 07/14/18 03:39 57 07/14/18 00:00 Nasal Cannula 3.0 07/14/18 00:00 98.6 57 22 155/72 (99) 96 07/13/18 23:35 53 07/13/18 21:44 97 Nasal Cannula 2.0 28 07/13/18 21:44 Nasal Cannula 2.0 28 07/13/18 21:44 63 20 Nasal Cannula 2.0 28 07/13/18 21:38 60 147/76 07/13/18 20:00 Nasal Cannula 3.0 07/13/18 20:00 98.8 60 24 147/76 (99) 99 07/13/18 19:43 57 07/13/18 16:00 3.0 07/13/18 16:00 97.9 63 16 153/80 (104) 97 07/13/18 16:00 Nasal Cannula 3.0 07/13/18 16:00 66 07/13/18 15:47 172/68 07/13/18 14:00 63 172/68 07/13/18 14:00 63 16 172/68 (102) 99 07/13/18 13:00 63 16 172/87 (115) 99 Intake and Output 07/13/18 07/14/18 19:00 07:00 Intake Total 580 ml 980 ml Output Total 1455 ml 1800 ml Balance -875 ml -820 ml Intake Free Water 100 ml IV Total 100 ml Tube Feeding 480 ml 780 ml Other 100 ml Output Urine Total 1455 ml 1800 ml Laboratory Tests Test 07/13/18 13:10 07/14/18 03:49 Troponin I 0.001 ng/mL (0.000-0.056) White Blood Count 7.6 K/UL (4.8-10.8) Red Blood Count 3.35 M/UL (4.70-6.10) L Hemoglobin 10.5 G/DL (14.2-18.0) L Hematocrit 31.3 % (42.0-52.0) L Mean Corpuscular Volume 93 FL (80-99) Mean Corpuscular Hemoglobin 31.3 PG (27.0-31.0) H Mean Corpuscular Hemoglobin Concent 33.5 G/DL (32.0-36.0) Red Cell Distribution Width 13.8 % (11.6-14.8) Platelet Count 357 K/UL (150-450) Mean Platelet Volume 6.7 FL (6.5-10.1) Neutrophils (%) (Auto) 65.0 % (45.0-75.0) Lymphocytes (%) (Auto) 14.7 % (20.0-45.0) L Monocytes (%) (Auto) 4.7 % (1.0-10.0) Eosinophils (%) (Auto) 14.9 % (0.0-3.0) H Basophils (%) (Auto) 0.8 % (0.0-2.0) Prothrombin Time 24.8 SEC (9.30-11.50) H Prothromb Time International Ratio 2.5 (0.9-1.1) H Sodium Level 148 MMOL/L (136-145) H Potassium Level 2.7 MMOL/L (3.5-5.1) *L Chloride Level 101 MMOL/L (98-107) Carbon Dioxide Level > 45 MMOL/L (21-32) *H Blood Urea Nitrogen 28 mg/dL (7-18) H Creatinine 0.7 MG/DL (0.55-1.30) Estimat Glomerular Filtration Rate mL/min (>60) Glucose Level 130 MG/DL (74-106) H Calcium Level 9.1 MG/DL (8.5-10.1) Phosphorus Level 2.3 MG/DL (2.5-4.9) L Magnesium Level 1.8 MG/DL (1.8-2.4) Total Bilirubin 0.3 MG/DL (0.2-1.0) Aspartate Amino Transf (AST/SGOT) 29 U/L (15-37) Alanine Aminotransferase (ALT/SGPT) 30 U/L (12-78) Alkaline Phosphatase 153 U/L (46-116) H Pro-B-Type Natriuretic Peptide 5062 pg/mL (0-125) H Total Protein 6.8 G/DL (6.4-8.2) Albumin 2.2 G/DL (3.4-5.0) L Globulin 4.6 g/dL Albumin/Globulin Ratio 0.5 (1.0-2.7) L Objective HEAD AND NECK: No JVD. On Ventimask LUNGS: Coarse rhonchi. CARDIOVASCULAR: Regular S1 and S2 with no gallop or murmur. ABDOMEN: Soft. GT feeding EXTREMITIES: 1+ pitting edema. Gerson Isaacs MD Jul 14, 2018 12:50
[2018-07-14] MEDS ORDERED: Tubing IV Secondary IV ONE ×2 (13:24→13:42)
[2018-07-14] MEDS ORDERED: NS 275ml ONE (13:24)
[2018-07-14] MEDS: Albuterol/Ipratropium 3ml neb HHN PRN ×2 (15:16→20:50)
[2018-07-14 16:00] VITALS: BP 139/68
[2018-07-14] MEDS ORDERED: Warfarin Sodium 1mg ORAL SCH (17:00)
--- NOTE | 2018-07-14 18:32 | Internal Med Progress Note ---
Subjective Date of Service: Jul 14, 2018 Physician Name AlexiaDale Attending Physician Elton Infante MD Current Medications Medications (Trade) Dose Ordered Sig/Ojrge Route PRN Reason Start Time Stop Time Status Last Admin Dose Admin Acetaminophen (Tylenol) 650 mg Q4H PRN ORAL fever (temp>100.5F) 07/13/18 16:15 08/07/18 16:14 Albuterol/ Ipratropium (Albuterol/ Ipratropium) 3 ml Q4HRT PRN HHN sob 07/14/18 07:30 07/19/18 07:29 07/14/18 15:16 Cefepime HCl 2 gm/ Dextrose 55 ml @ 110 mls/hr EVERY 12 HOURS IVPB 07/13/18 21:00 07/18/18 17:59 07/14/18 08:24 Clonidine HCl (Catapres Tab) 0.1 mg Q2H PRN ORAL sbp>170 07/13/18 15:54 08/12/18 15:53 Diltiazem HCl (Cardizem) 30 mg EVERY 8 HOURS GT 07/13/18 22:00 08/10/18 13:59 07/14/18 13:23 Escitalopram Oxalate (Lexapro) 10 mg DAILY ORAL 07/14/18 09:00 08/13/18 08:59 07/14/18 08:22 Furosemide (Lasix) 40 mg EVERY 12 HOURS IV 07/13/18 21:00 08/09/18 20:59 07/14/18 08:22 Haloperidol Lactate (Haldol) 5 mg Q6H PRN IM Agitation 07/13/18 15:55 08/08/18 15:54 Morphine Sulfate (Morphine Sulfate) 2 mg Q4H PRN IVP Severe Pain (Pain Scale 7-10) 07/13/18 15:55 07/15/18 15:54 Ondansetron HCl (Zofran) 4 mg Q6H PRN IVP Nausea & Vomiting 07/13/18 16:30 08/07/18 16:29 Pantoprazole (Protonix) 40 mg EVERY 12 HOURS IVP 07/13/18 21:00 08/07/18 20:59 07/14/18 08:21 Polyethylene Glycol (Miralax) 17 gm BEDTIME ORAL 07/14/18 21:00 08/13/18 20:59 Potassium Chloride (K-Dur) 40 meq DAILY ORAL 07/15/18 09:00 08/13/18 08:59 Quetiapine Fumarate (SEROquel) 12.5 mg Q4H PRN ORAL anxiety 07/13/18 15:54 08/12/18 15:53 Warfarin Sodium (Coumadin per pharmacy) 1 ea DAILY PRN MISC Per rx protocol 07/14/18 09:00 08/11/18 11:29 Allergies: Coded Allergies: PENICILLINS (Verified Allergy, Intermediate, 07/08/18) ROS Limited/Unobtainable: Yes Subjective 88 YO M admitted with altered mental status. Now UTI and septic shock. Cover for Int [facility]-Dr Naresh TAI. Tolerating nasal canula Objective Last Vital Signs Date Time Temp Pulse Resp B/P (MAP) Pulse Ox O2 Delivery O2 Flow Rate FiO2 07/14/18 16:00 68 07/14/18 16:00 98.4 20 139/68 (91) 94 07/14/18 16:00 Nasal Cannula 3.0 07/14/18 15:28 28 Laboratory Tests Test 07/14/18 03:49 White Blood Count 7.6 K/UL (4.8-10.8) Red Blood Count 3.35 M/UL (4.70-6.10) L Hemoglobin 10.5 G/DL (14.2-18.0) L Hematocrit 31.3 % (42.0-52.0) L Mean Corpuscular Volume 93 FL (80-99) Mean Corpuscular Hemoglobin 31.3 PG (27.0-31.0) H Mean Corpuscular Hemoglobin Concent 33.5 G/DL (32.0-36.0) Red Cell Distribution Width 13.8 % (11.6-14.8) Platelet Count 357 K/UL (150-450) Mean Platelet Volume 6.7 FL (6.5-10.1) Neutrophils (%) (Auto) 65.0 % (45.0-75.0) Lymphocytes (%) (Auto) 14.7 % (20.0-45.0) L Monocytes (%) (Auto) 4.7 % (1.0-10.0) Eosinophils (%) (Auto) 14.9 % (0.0-3.0) H Basophils (%) (Auto) 0.8 % (0.0-2.0) Prothrombin Time 24.8 SEC (9.30-11.50) H Prothromb Time International Ratio 2.5 (0.9-1.1) H Sodium Level 148 MMOL/L (136-145) H Potassium Level 2.7 MMOL/L (3.5-5.1) *L Chloride Level 101 MMOL/L (98-107) Carbon Dioxide Level > 45 MMOL/L (21-32) *H Blood Urea Nitrogen 28 mg/dL (7-18) H Creatinine 0.7 MG/DL (0.55-1.30) Estimat Glomerular Filtration Rate mL/min (>60) Glucose Level 130 MG/DL (74-106) H Calcium Level 9.1 MG/DL (8.5-10.1) Phosphorus Level 2.3 MG/DL (2.5-4.9) L Magnesium Level 1.8 MG/DL (1.8-2.4) Total Bilirubin 0.3 MG/DL (0.2-1.0) Aspartate Amino Transf (AST/SGOT) 29 U/L (15-37) Alanine Aminotransferase (ALT/SGPT) 30 U/L (12-78) Alkaline Phosphatase 153 U/L (46-116) H Pro-B-Type Natriuretic Peptide 5062 pg/mL (0-125) H Total Protein 6.8 G/DL (6.4-8.2) Albumin 2.2 G/DL (3.4-5.0) L Globulin 4.6 g/dL Albumin/Globulin Ratio 0.5 (1.0-2.7) L Intake and Output 07/13/18 07/14/18 19:00 07:00 Intake Total 580 ml 980 ml Output Total 1455 ml 1800 ml Balance -875 ml -820 ml Intake Free Water 100 ml IV Total 100 ml Tube Feeding 480 ml 780 ml Other 100 ml Output Urine Total 1455 ml 1800 ml Objective General Appearance: WD/WN, moderate distress EENT: PERRL/EOMI, normal ENT inspection Neck: non-tender, normal alignment, supple, normal inspection Cardiovascular: normal peripheral pulses, regular rhythm, no gallop/murmur, no JVD, bradycardia Respiratory/Chest: Nasal canula; chest wall non-tender, crackles/rales, rhonchi - bilaterally, expiratory wheezing Abdomen: normal bowel sounds, non tender, soft, no organomegaly, no mass Extremities: normal range of motion, non-tender 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 Coli Continue cefepime per ID (2) Pneumonia Assessment & Plan: Bilateral. See pulmonary note. Cont ertapenem and vanco (3) Altered level of consciousness (4) UTI (urinary tract infection) Assessment & Plan: E. Coli. Continue cefepime per ID (5) Sepsis Status: not improved Assessment/Plan Social work consult pending for power of sports attorney Dale Hale MD Jul 14, 2018 18:32
[2018-07-14 20:00] VITALS: BP 142/72
[2018-07-14] MEDS ORDERED: Miralax 17gm pkt ORAL SCH (21:00)
[2018-07-15] VITALS: BP 144/77
[2018-07-15 04:00] VITALS: BP 156/109
[2018-07-15] MEDS: dilTIAZem HCl 30mg tab GT SCH ×3 (05:22→21:27)
[2018-07-15 08:00] VITALS: BP 150/76
[2018-07-15] MEDS: Pantoprazole Inj IVP SCH ×2 (08:35→21:26)
[2018-07-15] MEDS: Cefepime HCl 2 GM in D5W 55 ML IVPB SCH ×2 (08:35→21:28)
--- NOTE | 2018-07-15 08:51 | Pulmonology Progress Note ---
Assessment/Plan Assessment/Plan ASSESSMENT acute respiratory failure requiring BiPAP -resolving Septic shock- resolved Sepsis with Escherichia coli bacteremia Escherichia coli and Pseudomonas aeruginosa UTI Probably PNA Left pleural effusion Tachy-bradycardia syndrome Atrial fibrillation with rapid ventricular response Trifascicular block ( 1 st degree AV block, RBBB, LAFB) Altered level of consciousness , secondary to acute toxic encephalopathy due to septic shock Coagulopathy, status post 2 units of FFP Anemia Congestive heart failure (EF 55%) Hypertension Moderate pulmonary hypertension History of tongue cancer Dysphagia G-tube Electrolyte imbalance : hypo K, hypo P, Constipation Depression PLAN OF CARE ABIDA Off pressors need BiPAP at HS and prn child guidance counselor on importance with BiPAP compliance ABG in am supplemental O2 to keep pulse above 92%, pulm. toilet cardio follows likely will need PPM hypotension was likely secondary to septic shock -resolved rate control with Cardizem , a/coagulation with Coumadin , keep INR in therapeutic range 2-3 ( 1.9 today ) Echo with pEF 55% and moderate pulm HTN Diuretic , monitor renal parameters and volumes, fup with CXR, pro BNP with small trend down no need for thoracentesis at this time Venous duplex BLE negative Abx as per ID blood cx+ Escherichia coli , urine culture +E coli, Pseudomonas influenza screen test negative sputum cx negative repeated urine cx+ Ecoli strict aspiration precaution G-tube feeding ,monitor tolerance monitor H&H with goal to keep hemoglobin above 7% INR per pharmacy monitoring for Coumadin , s/p 2 units FFP due to initial coagulopathy presentation altered LOC secondary to acute toxic encephalopathy due to septic shock replaced K and P 07/14, repalce K and P today as well, check lytes in am psychiatrist follows supportive care pain management bowel regimen instituted case discussed and evaluated by supervising physician Subjective Allergies: Coded Allergies: PENICILLINS (Verified Allergy, Intermediate, 07/08/18) Subjective feeling better Objective Last 24 Hour Vital Signs Date Time Temp Pulse Resp B/P (MAP) Pulse Ox O2 Delivery O2 Flow Rate FiO2 07/15/18 08:00 97.9 63 21 150/76 (100) 96 07/15/18 08:00 Nasal Cannula 3.0 07/15/18 05:22 66 156/109 07/15/18 04:00 98.1 65 20 156/109 (125) 91 07/15/18 04:00 67 07/15/18 04:00 Nasal Cannula 3.0 07/15/18 00:00 58 07/15/18 00:00 98.2 69 20 144/77 (99) 99 07/15/18 00:00 Nasal Cannula 3.0 07/14/18 21:24 69 143/69 07/14/18 21:02 63 20 99 Nasal Cannula 2.0 28 07/14/18 20:50 67 18 Nasal Cannula 2.0 28 07/14/18 20:50 Nasal Cannula 2.0 28 07/14/18 20:50 97 2.0 28 07/14/18 20:50 67 18 97 Nasal Cannula 2.0 28 07/14/18 20:00 Nasal Cannula 3.0 07/14/18 20:00 98.0 70 22 142/72 (95) 99 07/14/18 19:38 68 07/14/18 16:00 68 07/14/18 16:00 98.4 71 20 139/68 (91) 94 07/14/18 16:00 Nasal Cannula 3.0 07/14/18 15:28 76 20 98 Nasal Cannula 2.0 28 07/14/18 15:17 91 20 98 Nasal Cannula 2.0 28 07/14/18 13:23 67 151/80 07/14/18 12:00 Nasal Cannula 3.0 07/14/18 12:00 67 07/14/18 12:00 97.9 67 19 151/80 (103) 95 07/14/18 09:02 58 Intake and Output 07/14/18 07/15/18 18:59 06:59 Intake Total 1300 ml 935 ml Output Total 1300 ml 1200 ml Balance 0 ml -265 ml Intake Free Water 150 ml 60 ml IV Total 430 ml 55 ml Tube Feeding 720 ml 720 ml Other 100 ml Output Urine Total 1300 ml 1200 ml Objective General Appearance: no acute distress, bedridden male in NAD, awake , responsive HEENT: normocephalic, atraumatic, other - O2 via NC Respiratory/Chest: no respiratory distress, decreased breath sounds Cardiovascular: no JVD, bradycardia Abdomen: normal bowel sounds, soft, non tender, GT with feeding Extremities: pedal pulses normal, other - +2 edema BLE Neurologic/Psychiatric: abnormal gait, alert, responsive Musculoskeletal: atrophy - BLE Current Medications Medications (Trade) Dose Ordered Sig/Jorge Route PRN Reason Start Time Stop Time Status Last Admin Dose Admin Acetaminophen (Tylenol) 650 mg Q4H PRN ORAL fever (temp>100.5F) 07/13/18 16:15 08/07/18 16:14 Albuterol/ Ipratropium (Albuterol/ Ipratropium) 3 ml Q4HRT PRN HHN sob 07/14/18 07:30 07/19/18 07:29 07/14/18 20:50 Cefepime HCl 2 gm/ Dextrose 55 ml @ 110 mls/hr EVERY 12 HOURS IVPB 07/13/18 21:00 07/18/18 17:59 07/15/18 08:35 Clonidine HCl (Catapres Tab) 0.1 mg Q2H PRN ORAL sbp>170 07/13/18 15:54 08/12/18 15:53 Diltiazem HCl (Cardizem) 30 mg EVERY 8 HOURS GT 07/13/18 22:00 08/10/18 13:59 07/15/18 05:22 Escitalopram Oxalate (Lexapro) 10 mg DAILY ORAL 07/14/18 09:00 08/13/18 08:59 07/15/18 08:36 Furosemide (Lasix) 40 mg EVERY 12 HOURS IV 07/13/18 21:00 08/09/18 20:59 07/15/18 08:35 Haloperidol Lactate (Haldol) 5 mg Q6H PRN IM Agitation 07/13/18 15:55 08/08/18 15:54 Morphine Sulfate (Morphine Sulfate) 2 mg Q4H PRN IVP Severe Pain (Pain Scale 7-10) 07/13/18 15:55 07/15/18 15:54 Ondansetron HCl (Zofran) 4 mg Q6H PRN IVP Nausea & Vomiting 07/13/18 16:30 08/07/18 16:29 Pantoprazole (Protonix) 40 mg EVERY 12 HOURS IVP 07/13/18 21:00 08/07/18 20:59 07/15/18 08:35 Polyethylene Glycol (Miralax) 17 gm BEDTIME ORAL 07/14/18 21:00 08/13/18 20:59 07/14/18 21:19 Potassium Chloride (K-Dur) 40 meq DAILY ORAL 07/15/18 09:00 08/13/18 08:59 07/15/18 08:36 Quetiapine Fumarate (SEROquel) 12.5 mg Q4H PRN ORAL anxiety 07/13/18 15:54 08/12/18 15:53 Warfarin Sodium (Coumadin per pharmacy) 1 ea DAILY PRN MISC Per rx protocol 07/14/18 09:00 08/11/18 11:29 Cintia Wilhelm NP Jul 15, 2018 08:51
[2018-07-15 10:13] LABS: BASOPHILS % (AUTO) 0.8 % (0.0-2.0); EOSINOPHILS % (AUTO) 11.1 % (0.0-3.0); HEMATOCRIT 32.1 % (42.0-52.0); HEMOGLOBIN 10.6 G/DL (14.2-18.0); LYMPHOCYTES % (AUTO) 15.9 % (20.0-45.0); MEAN CORPUSCULAR VOLUME 93 FL (80-99); MONOCYTES % (AUTO) 5.7 % (1.0-10.0); NEUTROPHILS % (AUTO) 66.5 % (45.0-75.0); PLATELET COUNT 373 K/UL (150-450); RED BLOOD COUNT 3.46 M/UL (4.70-6.10); WHITE BLOOD COUNT 7.5 K/UL (4.8-10.8)
[2018-07-15 10:28] LABS: BLOOD UREA NITROGEN 32 mg/dL (7-18); CALCIUM 9.2 MG/DL (8.5-10.1); CHLORIDE 100 MMOL/L (98-107); CREATININE 0.7 MG/DL (0.55-1.30); INR 1.9 (0.9-1.1); PHOSPHORUS 2.3 MG/DL (2.5-4.9); POTASSIUM 3.3 MMOL/L (3.5-5.1); SODIUM 146 MMOL/L (136-145)
[2018-07-15 10:34] LABS: CARBON DIOXIDE > 45 MMOL/L (21-32)
[2018-07-15] MEDS ORDERED: NS 275ml ONE (10:41)
[2018-07-15] MEDS ORDERED: Morphine Sulfate 2mg/ml Inj IVP PRN ×2 (11:55→12:00)
[2018-07-15 12:00] VITALS: BP 149/87
[2018-07-15] MEDS ORDERED: Potassium Phosphate 20 MM in NS 275 ML IV ONE ×2 (12:30→14:30)
--- NOTE | 2018-07-15 13:54 | Cardiac Electrophysiology PN ---
Assessment/Plan Assessment/Plan 1. Hypotension due to likely septic shock. Resolved. On iv Abx Echocardiogram EF 55% Now on iv Lasix and Cardizem and prn Clonidine 2. Tachy Verna syndrome. Hold PPM implant for now. 3. Atrial fib with RVR . On Cardizem 30 po q 8 hrs and Coumadin per Rx. 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 20 beats of nonsustained VT while in SR on 07/11/18. Repeat Troponin now and in am. 6. Chronic left leg DVT. On Coumadin per RX. Duplex is still positive for DVT. 7. S/P respiratory failure, now off BiPAP. 8. Pleural effusion. Improving with Lasix. No thoracentesis now. 9. Full code 10. S/P PEG DW RN Subjective Subjective Comfortable in NAD. In SR,. No verna Objective Last 24 Hour Vital Signs Date Time Temp Pulse Resp B/P (MAP) Pulse Ox O2 Delivery O2 Flow Rate FiO2 07/15/18 12:00 98.6 63 20 149/87 (107) 98 07/15/18 08:00 97.9 63 21 150/76 (100) 96 07/15/18 08:00 Nasal Cannula 3.0 07/15/18 08:00 64 07/15/18 05:22 66 156/109 07/15/18 04:00 98.1 65 20 156/109 (125) 91 07/15/18 04:00 67 07/15/18 04:00 Nasal Cannula 3.0 07/15/18 00:00 58 07/15/18 00:00 98.2 69 20 144/77 (99) 99 07/15/18 00:00 Nasal Cannula 3.0 07/14/18 21:24 69 143/69 07/14/18 21:02 63 20 99 Nasal Cannula 2.0 28 07/14/18 20:50 67 18 Nasal Cannula 2.0 28 07/14/18 20:50 Nasal Cannula 2.0 28 07/14/18 20:50 97 2.0 28 07/14/18 20:50 67 18 97 Nasal Cannula 2.0 28 07/14/18 20:00 Nasal Cannula 3.0 07/14/18 20:00 98.0 70 22 142/72 (95) 99 07/14/18 19:38 68 07/14/18 16:00 68 07/14/18 16:00 98.4 71 20 139/68 (91) 94 07/14/18 16:00 Nasal Cannula 3.0 07/14/18 15:28 76 20 98 Nasal Cannula 2.0 28 07/14/18 15:17 91 20 98 Nasal Cannula 2.0 28 Intake and Output 07/14/18 07/15/18 19:00 07:00 Intake Total 1300 ml 935 ml Output Total 1300 ml 1200 ml Balance 0 ml -265 ml Intake Free Water 150 ml 60 ml IV Total 430 ml 55 ml Tube Feeding 720 ml 720 ml Other 100 ml Output Urine Total 1300 ml 1200 ml Laboratory Tests Test 07/15/18 09:40 White Blood Count 7.5 K/UL (4.8-10.8) Red Blood Count 3.46 M/UL (4.70-6.10) L Hemoglobin 10.6 G/DL (14.2-18.0) L Hematocrit 32.1 % (42.0-52.0) L Mean Corpuscular Volume 93 FL (80-99) Mean Corpuscular Hemoglobin 30.7 PG (27.0-31.0) Mean Corpuscular Hemoglobin Concent 33.1 G/DL (32.0-36.0) Red Cell Distribution Width 14.0 % (11.6-14.8) Platelet Count 373 K/UL (150-450) Mean Platelet Volume 6.8 FL (6.5-10.1) Neutrophils (%) (Auto) 66.5 % (45.0-75.0) Lymphocytes (%) (Auto) 15.9 % (20.0-45.0) L Monocytes (%) (Auto) 5.7 % (1.0-10.0) Eosinophils (%) (Auto) 11.1 % (0.0-3.0) H Basophils (%) (Auto) 0.8 % (0.0-2.0) Prothrombin Time 19.4 SEC (9.30-11.50) H Prothromb Time International Ratio 1.9 (0.9-1.1) H Sodium Level 146 MMOL/L (136-145) H Potassium Level 3.3 MMOL/L (3.5-5.1) L Chloride Level 100 MMOL/L (98-107) Carbon Dioxide Level > 45 MMOL/L (21-32) *H Blood Urea Nitrogen 32 mg/dL (7-18) H Creatinine 0.7 MG/DL (0.55-1.30) Estimat Glomerular Filtration Rate mL/min (>60) Glucose Level 138 MG/DL (74-106) H Calcium Level 9.2 MG/DL (8.5-10.1) Phosphorus Level 2.3 MG/DL (2.5-4.9) L Magnesium Level 2.1 MG/DL (1.8-2.4) Objective HEAD AND NECK: No JVD. LUNGS: Coarse rhonchi. CARDIOVASCULAR: Regular S1 and S2 with no gallop or murmur. ABDOMEN: Soft. GT feeding EXTREMITIES: 1+ pitting edema. Gerson Isaacs MD Jul 15, 2018 13:54
--- NOTE | 2018-07-15 14:48 | Internal Med Progress Note ---
Subjective Date of Service: Jul 15, 2018 Physician Name Dale Hale Attending Physician Elton Infante MD Current Medications Medications (Trade) Dose Ordered Sig/Jorge Route PRN Reason Start Time Stop Time Status Last Admin Dose Admin Acetaminophen (Tylenol) 650 mg Q4H PRN ORAL fever (temp>100.5F) 07/15/18 12:15 08/07/18 16:14 Albuterol/ Ipratropium (Albuterol/ Ipratropium) 3 ml Q4HRT PRN HHN sob 07/15/18 15:00 07/19/18 07:29 Cefepime HCl 2 gm/ Dextrose 55 ml @ 110 mls/hr EVERY 12 HOURS IVPB 07/15/18 21:00 07/18/18 17:59 Clonidine HCl (Catapres Tab) 0.1 mg Q2H PRN ORAL sbp>170 07/15/18 12:00 08/12/18 15:53 Diltiazem HCl (Cardizem) 30 mg EVERY 8 HOURS GT 07/15/18 14:00 08/10/18 13:59 Escitalopram Oxalate (Lexapro) 10 mg DAILY ORAL 07/16/18 09:00 08/13/18 08:59 Furosemide (Lasix) 40 mg EVERY 12 HOURS IV 07/15/18 21:00 08/09/18 20:59 Haloperidol Lactate (Haldol) 5 mg Q6H PRN IM Agitation 07/15/18 16:00 08/08/18 15:54 Morphine Sulfate (Morphine Sulfate) 2 mg Q4H PRN IVP Severe Pain (Pain Scale 7-10) 07/15/18 12:00 07/17/18 11:54 Ondansetron HCl (Zofran) 4 mg Q6H PRN IVP Nausea & Vomiting 07/15/18 16:30 08/07/18 16:29 Pantoprazole (Protonix) 40 mg EVERY 12 HOURS IVP 07/15/18 21:00 08/07/18 20:59 Polyethylene Glycol (Miralax) 17 gm BEDTIME ORAL 07/15/18 21:00 08/13/18 20:59 Potassium Phosphate 20 mm/ Sodium Chloride 281.6667 ml @ 46.94 mls/hr ONCE ONCE IV 07/15/18 14:30 07/15/18 20:30 Potassium Chloride (K-Dur) 40 meq DAILY ORAL 07/16/18 09:00 08/13/18 08:59 Quetiapine Fumarate (SEROquel) 12.5 mg Q4H PRN ORAL anxiety 07/15/18 12:00 08/12/18 15:53 Warfarin Sodium (Coumadin per pharmacy) 1 ea DAILY PRN MISC Per rx protocol 07/16/18 09:00 08/11/18 11:29 Warfarin Sodium (Coumadin) 3 mg COUMADIN ORAL 07/15/18 17:00 07/15/18 17:01 Allergies: Coded Allergies: PENICILLINS (Verified Allergy, Intermediate, 07/08/18) ROS Limited/Unobtainable: Yes Subjective 88 YO M admitted with altered mental status. Now UTI and septic shock. Cover for Int [facility]-Dr Infante Tolerating nasal canula Objective Last Vital Signs Date Time Temp Pulse Resp B/P (MAP) Pulse Ox O2 Delivery O2 Flow Rate FiO2 07/15/18 12:00 98.6 63 20 149/87 (107) 98 07/15/18 12:00 Nasal Cannula 3.0 07/14/18 21:02 28 Laboratory Tests Test 07/15/18 09:40 White Blood Count 7.5 K/UL (4.8-10.8) Red Blood Count 3.46 M/UL (4.70-6.10) L Hemoglobin 10.6 G/DL (14.2-18.0) L Hematocrit 32.1 % (42.0-52.0) L Mean Corpuscular Volume 93 FL (80-99) Mean Corpuscular Hemoglobin 30.7 PG (27.0-31.0) Mean Corpuscular Hemoglobin Concent 33.1 G/DL (32.0-36.0) Red Cell Distribution Width 14.0 % (11.6-14.8) Platelet Count 373 K/UL (150-450) Mean Platelet Volume 6.8 FL (6.5-10.1) Neutrophils (%) (Auto) 66.5 % (45.0-75.0) Lymphocytes (%) (Auto) 15.9 % (20.0-45.0) L Monocytes (%) (Auto) 5.7 % (1.0-10.0) Eosinophils (%) (Auto) 11.1 % (0.0-3.0) H Basophils (%) (Auto) 0.8 % (0.0-2.0) Prothrombin Time 19.4 SEC (9.30-11.50) H Prothromb Time International Ratio 1.9 (0.9-1.1) H Sodium Level 146 MMOL/L (136-145) H Potassium Level 3.3 MMOL/L (3.5-5.1) L Chloride Level 100 MMOL/L (98-107) Carbon Dioxide Level > 45 MMOL/L (21-32) *H Blood Urea Nitrogen 32 mg/dL (7-18) H Creatinine 0.7 MG/DL (0.55-1.30) Estimat Glomerular Filtration Rate mL/min (>60) Glucose Level 138 MG/DL (74-106) H Calcium Level 9.2 MG/DL (8.5-10.1) Phosphorus Level 2.3 MG/DL (2.5-4.9) L Magnesium Level 2.1 MG/DL (1.8-2.4) Intake and Output 07/14/18 07/15/18 19:00 07:00 Intake Total 1300 ml 935 ml Output Total 1300 ml 1200 ml Balance 0 ml -265 ml Intake Free Water 150 ml 60 ml IV Total 430 ml 55 ml Tube Feeding 720 ml 720 ml Other 100 ml Output Urine Total 1300 ml 1200 ml Objective General Appearance: WD/WN, moderate distress EENT: PERRL/EOMI, normal ENT inspection Neck: non-tender, normal alignment, supple, normal inspection Cardiovascular: normal peripheral pulses, regular rhythm, no gallop/murmur, no JVD, bradycardia Respiratory/Chest: Nasal canula; chest wall non-tender, crackles/rales, rhonchi - bilaterally, expiratory wheezing Abdomen: normal bowel sounds, non tender, soft, no organomegaly, no mass Extremities: normal range of motion, non-tender Neurologic: chemical detection expert II-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 Skin: normal pigmentation Assessment/Plan Problem List: (1) Septic shock Assessment & Plan: E. Coli Continue cefepime per ID (2) Pneumonia Assessment & Plan: Bilateral. See pulmonary note. Cont ertapenem and vanco (3) Altered level of consciousness (4) UTI (urinary tract infection) Assessment & Plan: E. Coli. Continue cefepime per ID (5) Sepsis Status: progressing Assessment/Plan Social work consult pending for power of trust and estates attorney Dale Hale MD Jul 15, 2018 14:48
[2018-07-15 16:00] VITALS: BP 160/73
[2018-07-15] MEDS ORDERED: Haloperidol 5mg/ml Inj IM PRN (16:00)
[2018-07-15] MEDS ORDERED: Warfarin Sodium 3mg ORAL SCH ×2 (17:00)
[2018-07-15 20:00] VITALS: BP 130/75
[2018-07-15] MEDS: Albuterol/Ipratropium 3ml neb HHN PRN (20:10)
[2018-07-15] MEDS: Miralax 17gm pkt ORAL SCH (21:26)
[2018-07-16] VITALS: BP 139/66
[2018-07-16 04:00] VITALS: BP 137/78
[2018-07-16] MEDS: dilTIAZem HCl 30mg tab GT SCH ×3 (06:29→22:56)
[2018-07-16 07:33] LABS: BASOPHILS % (AUTO) 1.1 % (0.0-2.0); EOSINOPHILS % (AUTO) 7.7 % (0.0-3.0); HEMATOCRIT 29.4 % (42.0-52.0); HEMOGLOBIN 10.1 G/DL (14.2-18.0); LYMPHOCYTES % (AUTO) 17.4 % (20.0-45.0); MEAN CORPUSCULAR VOLUME 93 FL (80-99); MONOCYTES % (AUTO) 2.7 % (1.0-10.0); PLATELET COUNT 288 K/UL (150-450); RED BLOOD COUNT 3.16 M/UL (4.70-6.10); RED CELL DISTRIBUTION WIDTH 14.1 % (11.6-14.8); WHITE BLOOD COUNT 10.4 K/UL (4.8-10.8)
[2018-07-16 07:42] LABS: INR 1.7 (0.9-1.1)
[2018-07-16 07:57] LABS: BLOOD UREA NITROGEN 31 mg/dL (7-18); CALCIUM 9.2 MG/DL (8.5-10.1); CHLORIDE 98 MMOL/L (98-107); CREATININE 0.7 MG/DL (0.55-1.30); POTASSIUM 4.3 MMOL/L (3.5-5.1); SODIUM 141 MMOL/L (136-145)
[2018-07-16 08:00] VITALS: BP 157/76
[2018-07-16 08:11] LABS: CARBON DIOXIDE > 45 MMOL/L (21-32)
[2018-07-16] MEDS: Pantoprazole Inj IVP SCH ×2 (08:22→20:14)
[2018-07-16] MEDS: Cefepime HCl 2 GM in D5W 55 ML IVPB SCH ×2 (09:16→20:18)
--- NOTE | 2018-07-16 10:34 | General Progress Note ---
Assessment/Plan Problem List: (1) Dementia ICD Codes: F03.90 - Unspecified dementia without behavioral disturbance SNOMED: 83917985 (2) Encephalopathy due to metabolic factor or toxin SNOMED: 787463062 Status: unchanged Assessment/Plan Haldol prn head 30degree provided ro Seroquel prn Subjective Date patient seen: Jul 16, 2018 Neurologic/Psychiatric: Reports: anxiety Allergies: Coded Allergies: PENICILLINS (Verified Allergy, Intermediate, 07/08/18) Subjective the pt was agitated today stated that he would like to remove the bi-pap mask Objective Last 24 Hour Vital Signs Date Time Temp Pulse Resp B/P (MAP) Pulse Ox O2 Delivery O2 Flow Rate FiO2 07/16/18 09:30 63 14 95 Facial 3.0 35 07/16/18 09:00 Nasal Cannula 3.0 07/16/18 08:00 98.5 72 18 157/76 (103) 94 07/16/18 08:00 69 07/16/18 07:53 97 Nasal Cannula 2.0 28 07/16/18 07:53 Nasal Cannula 2.0 28 07/16/18 07:51 70 18 Nasal Cannula 2.0 28 07/16/18 06:29 65 137/78 07/16/18 04:00 97.0 63 20 137/78 (97) 95 07/16/18 04:00 65 07/16/18 00:00 97.0 65 19 139/66 (90) 94 07/16/18 00:00 65 07/15/18 21:27 69 160/73 07/15/18 21:00 Nasal Cannula 3.0 07/15/18 20:19 69 20 99 Nasal Cannula 2.0 28 07/15/18 20:18 69 20 99 Nasal Cannula 2.0 28 07/15/18 20:00 66 07/15/18 20:00 97.7 68 20 130/75 (93) 95 07/15/18 16:35 Nasal Cannula 2.0 28 07/15/18 16:34 96 Nasal Cannula 2.0 28 07/15/18 16:33 68 20 Nasal Cannula 2.0 28 07/15/18 16:00 68 07/15/18 16:00 Nasal Cannula 3.0 07/15/18 16:00 98.3 70 18 160/73 (102) 92 07/15/18 14:52 70 160/73 07/15/18 12:00 98.6 63 20 149/87 (107) 98 07/15/18 12:00 65 07/15/18 12:00 Nasal Cannula 3.0 Intake and Output 07/15/18 07/16/18 18:59 06:59 Intake Total 350 ml Output Total 1000 ml 1200 ml Balance -650 ml -1200 ml Intake Free Water 50 ml Tube Feeding 300 ml Output Urine Total 1000 ml 1200 ml Laboratory Tests 07/16/18 07:14: White Blood Count 10.4, Red Blood Count 3.16L, Hemoglobin 10.1L, Hematocrit 29.4L, Mean Corpuscular Volume 93, Mean Corpuscular Hemoglobin 31.8H, Mean Corpuscular Hemoglobin Concent 34.3, Red Cell Distribution Width 14.1, Platelet Count 288, Mean Platelet Volume 7.6, Neutrophils (%) (Auto) 71.0, Lymphocytes (% ) (Auto) 17.4L, Monocytes (%) (Auto) 2.7, Eosinophils (%) (Auto) 7.7H, Basophils (%) (Auto) 1.1, Prothrombin Time 17.4H, Prothromb Time International Ratio 1.7H, Sodium Level 141, Potassium Level 4.3, Chloride Level 98, Carbon Dioxide Level > 45*H, Blood Urea Nitrogen 31H, Creatinine 0.7, Estimat Glomerular Filtration Rate , Glucose Level 110H, Calcium Level 9.2, Phosphorus Level 3.0, Pro-B-Type Natriuretic Peptide 2379H 07/16/18 08:15: Arterial Blood pH 7.538H, Arterial Blood Partial Pressure CO2 63.6*H, Arterial Blood Partial Pressure O2 63.4L, Arterial Blood HCO3 52.9*H, Arterial Blood Oxygen Saturation 92.8L, Arterial Blood Base Excess 26.6*H, Guicho Test Positive Height (Feet): 6 Height (Inches): 2.00 Weight (Pounds): 212 General Appearance: alert, confused, agitated Bartolome Martin MD Jul 16, 2018 10:34
--- NOTE | 2018-07-16 11:01 | Diagnostic Imaging Report ---
Indication: Cough Technique: One view of the chest Comparison: 07/14/2018 Findings: Again demonstrated are bilateral left greater than right pleural effusions and bilateral interstitial edema. Cardiomegaly persists. The right pleural effusion may be slightly increased from the prior exam. Other findings are unchanged Impression: Slightly increased right pleural effusion. Otherwise stable findings over 2 days, as described
--- NOTE | 2018-07-16 11:48 | Infectious Diseases Prog Note ---
Assessment/Plan Assessment/Plan ASSESSMENT: The patient is an 88-year-old male with: Fever, Sp Leukocytosis, Sp UTI Ecoli / PSA Bacteremia E Coli doubt pneumonia pleural effusion 07/16 CXR: Slightly increased right pleural effusion. Otherwise stable findings over 2 days, as described 07/11 CXR: Pulmonary edema. Suspected bilateral pleural effusions. No interval change LACosis, Sp CHF EF: 55% Hypertension Gout Depression Anemia History of tongue cancer PLAN: - Continue the patient on Cefepime d# 6/10 11 SP Rocephin d # 2 116 Sp IV vancomycin and ertapenem d# 2 07/09 Sp IV amikacin d# 2 -Monitor CBC. -Monitor BMP -Monitor x-rays. Subjective Allergies: Coded Allergies: PENICILLINS (Verified Allergy, Intermediate, 07/08/18) Subjective comfortable Objective Vital Signs Last 24 Hour Vital Signs Date Time Temp Pulse Resp B/P (MAP) Pulse Ox O2 Delivery O2 Flow Rate FiO2 07/16/18 09:30 63 14 95 Facial 35 07/16/18 09:00 Nasal Cannula 3.0 07/16/18 08:00 98.5 72 18 157/76 (103) 94 07/16/18 08:00 69 07/16/18 07:53 97 Nasal Cannula 2.0 28 07/16/18 07:53 Nasal Cannula 2.0 28 07/16/18 07:51 70 18 Nasal Cannula 2.0 28 07/16/18 06:29 65 137/78 07/16/18 04:00 97.0 63 20 137/78 (97) 95 07/16/18 04:00 65 07/16/18 00:00 97.0 65 19 139/66 (90) 94 07/16/18 00:00 65 07/15/18 21:27 69 160/73 07/15/18 21:00 Nasal Cannula 3.0 07/15/18 20:19 69 20 99 Nasal Cannula 2.0 28 07/15/18 20:18 69 20 99 Nasal Cannula 2.0 28 07/15/18 20:00 66 07/15/18 20:00 97.7 68 20 130/75 (93) 95 07/15/18 16:35 Nasal Cannula 2.0 28 07/15/18 16:34 96 Nasal Cannula 2.0 28 07/15/18 16:33 68 20 Nasal Cannula 2.0 28 07/15/18 16:00 68 07/15/18 16:00 Nasal Cannula 3.0 07/15/18 16:00 98.3 70 18 160/73 (102) 92 07/15/18 14:52 70 160/73 07/15/18 12:00 98.6 63 20 149/87 (107) 98 07/15/18 12:00 65 07/15/18 12:00 Nasal Cannula 3.0 Height (Feet): 6 Height (Inches): 2.00 Weight (Pounds): 212 HEENT: mucous membranes moist Respiratory/Chest: no accessory muscle use Cardiovascular: regularly irregular Abdomen: no organomegaly Laboratory Tests Test 07/16/18 07:14 07/16/18 08:15 White Blood Count 10.4 K/UL (4.8-10.8) Red Blood Count 3.16 M/UL (4.70-6.10) L Hemoglobin 10.1 G/DL (14.2-18.0) L Hematocrit 29.4 % (42.0-52.0) L Mean Corpuscular Volume 93 FL (80-99) Mean Corpuscular Hemoglobin 31.8 PG (27.0-31.0) H Mean Corpuscular Hemoglobin Concent 34.3 G/DL (32.0-36.0) Red Cell Distribution Width 14.1 % (11.6-14.8) Platelet Count 288 K/UL (150-450) Mean Platelet Volume 7.6 FL (6.5-10.1) Neutrophils (%) (Auto) 71.0 % (45.0-75.0) Lymphocytes (%) (Auto) 17.4 % (20.0-45.0) L Monocytes (%) (Auto) 2.7 % (1.0-10.0) Eosinophils (%) (Auto) 7.7 % (0.0-3.0) H Basophils (%) (Auto) 1.1 % (0.0-2.0) Prothrombin Time 17.4 SEC (9.30-11.50) H Prothromb Time International Ratio 1.7 (0.9-1.1) H Sodium Level 141 MMOL/L (136-145) Potassium Level 4.3 MMOL/L (3.5-5.1) Chloride Level 98 MMOL/L (98-107) Carbon Dioxide Level > 45 MMOL/L (21-32) *H Blood Urea Nitrogen 31 mg/dL (7-18) H Creatinine 0.7 MG/DL (0.55-1.30) Estimat Glomerular Filtration Rate mL/min (>60) Glucose Level 110 MG/DL (74-106) H Calcium Level 9.2 MG/DL (8.5-10.1) Phosphorus Level 3.0 MG/DL (2.5-4.9) Pro-B-Type Natriuretic Peptide 2379 pg/mL (0-125) H Arterial Blood pH 7.538 (7.350-7.450) Arterial Blood Partial Pressure CO2 63.6 mmHg (35.0-45.0) *H Arterial Blood Partial Pressure O2 63.4 mmHg (75.0-100.0) L Arterial Blood HCO3 52.9 mmol/L (22.0-26.0) *H Arterial Blood Oxygen Saturation 92.8 % (95-100) L Arterial Blood Base Excess 26.6 (-2-2) *H Guicho Test Positive Current Medications Medications (Trade) Dose Ordered Sig/Jorge Route PRN Reason Start Time Stop Time Status Last Admin Dose Admin Acetaminophen (Tylenol) 650 mg Q4H PRN ORAL fever (temp>100.5F) 07/15/18 12:15 08/07/18 16:14 Albuterol/ Ipratropium (Albuterol/ Ipratropium) 3 ml Q4HRT PRN HHN sob 07/15/18 15:00 07/19/18 07:29 07/15/18 20:10 Cefepime HCl 2 gm/ Dextrose 55 ml @ 110 mls/hr EVERY 12 HOURS IVPB 07/15/18 21:00 07/18/18 17:59 07/16/18 09:16 Clonidine HCl (Catapres Tab) 0.1 mg Q2H PRN ORAL sbp>170 07/15/18 12:00 08/12/18 15:53 Diltiazem HCl (Cardizem) 30 mg EVERY 8 HOURS GT 07/15/18 14:00 08/10/18 13:59 07/16/18 06:29 Escitalopram Oxalate (Lexapro) 10 mg DAILY ORAL 07/16/18 09:00 08/13/18 08:59 07/16/18 08:23 Furosemide (Lasix) 40 mg EVERY 12 HOURS IV 07/15/18 21:00 08/09/18 20:59 07/16/18 08:23 Haloperidol Lactate (Haldol) 5 mg Q6H PRN IM Agitation 07/15/18 16:00 08/08/18 15:54 Morphine Sulfate (Morphine Sulfate) 2 mg Q4H PRN IVP Severe Pain (Pain Scale 7-10) 07/15/18 12:00 07/17/18 11:54 Ondansetron HCl (Zofran) 4 mg Q6H PRN IVP Nausea & Vomiting 07/15/18 16:30 08/07/18 16:29 Pantoprazole (Protonix) 40 mg EVERY 12 HOURS IVP 07/15/18 21:00 08/07/18 20:59 07/16/18 08:22 Polyethylene Glycol (Miralax) 17 gm BEDTIME ORAL 07/15/18 21:00 08/13/18 20:59 07/15/18 21:26 Potassium Chloride (K-Dur) 40 meq DAILY ORAL 07/16/18 09:00 08/13/18 08:59 07/16/18 08:23 Quetiapine Fumarate (SEROquel) 12.5 mg Q4H PRN ORAL anxiety 07/15/18 12:00 08/12/18 15:53 Warfarin Sodium (Coumadin per pharmacy) 1 ea DAILY PRN MISC Per rx protocol 07/16/18 09:00 08/11/18 11:29 Thuan Marti MD Jul 16, 2018 11:48
[2018-07-16 12:00] VITALS: BP 139/62
--- NOTE | 2018-07-16 12:52 | Pulmonology Progress Note ---
Assessment/Plan Problems: (1) Septic shock (2) Pulmonary edema (3) Pneumonia (4) ATN (acute tubular necrosis) (5) Feeding by G-tube (6) Dementia Assessment/Plan cxr reviewed, still large effusion and edema afebrile continue antibiotics on cefepime dc IV fluids on lasix iv f/u bun/creatinine Gtube feeding poor prognosis consider DNR status Subjective ROS Limited/Unobtainable: No Interval Events: comfortable Allergies: Coded Allergies: PENICILLINS (Verified Allergy, Intermediate, 07/08/18) Objective Last 24 Hour Vital Signs Date Time Temp Pulse Resp B/P (MAP) Pulse Ox O2 Delivery O2 Flow Rate FiO2 07/16/18 12:00 98.8 71 20 139/62 (87) 92 07/16/18 09:30 63 14 95 Facial 35 07/16/18 09:00 Nasal Cannula 3.0 07/16/18 08:00 98.5 72 18 157/76 (103) 94 07/16/18 08:00 69 07/16/18 07:53 97 Nasal Cannula 2.0 28 07/16/18 07:53 Nasal Cannula 2.0 28 07/16/18 07:51 70 18 Nasal Cannula 2.0 28 07/16/18 06:29 65 137/78 07/16/18 04:00 97.0 63 20 137/78 (97) 95 07/16/18 04:00 65 07/16/18 00:00 97.0 65 19 139/66 (90) 94 07/16/18 00:00 65 07/15/18 21:27 69 160/73 07/15/18 21:00 Nasal Cannula 3.0 07/15/18 20:19 69 20 99 Nasal Cannula 2.0 28 07/15/18 20:18 69 20 99 Nasal Cannula 2.0 28 07/15/18 20:00 66 07/15/18 20:00 97.7 68 20 130/75 (93) 95 07/15/18 16:35 Nasal Cannula 2.0 28 07/15/18 16:34 96 Nasal Cannula 2.0 28 07/15/18 16:33 68 20 Nasal Cannula 2.0 28 07/15/18 16:00 68 07/15/18 16:00 Nasal Cannula 3.0 07/15/18 16:00 98.3 70 18 160/73 (102) 92 07/15/18 14:52 70 160/73 Intake and Output 07/15/18 07/16/18 18:59 06:59 Intake Total 350 ml Output Total 1000 ml 1200 ml Balance -650 ml -1200 ml Intake Free Water 50 ml Tube Feeding 300 ml Output Urine Total 1000 ml 1200 ml General Appearance: WD/WN HEENT: normocephalic, atraumatic Respiratory/Chest: chest wall non-tender, crackles/rales Cardiovascular: normal peripheral pulses, normal rate Abdomen: normal bowel sounds, soft, non tender Genitourinary: normal external genitalia Extremities: no cyanosis Skin: no rash Neurologic/Psychiatric: track oiler II-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 Laboratory Tests 07/16/18 07:14: White Blood Count 10.4, Red Blood Count 3.16L, Hemoglobin 10.1L, Hematocrit 29.4L, Mean Corpuscular Volume 93, Mean Corpuscular Hemoglobin 31.8H, Mean Corpuscular Hemoglobin Concent 34.3, Red Cell Distribution Width 14.1, Platelet Count 288, Mean Platelet Volume 7.6, Neutrophils (%) (Auto) 71.0, Lymphocytes (% ) (Auto) 17.4L, Monocytes (%) (Auto) 2.7, Eosinophils (%) (Auto) 7.7H, Basophils (%) (Auto) 1.1, Prothrombin Time 17.4H, Prothromb Time International Ratio 1.7H, Sodium Level 141, Potassium Level 4.3, Chloride Level 98, Carbon Dioxide Level > 45*H, Blood Urea Nitrogen 31H, Creatinine 0.7, Estimat Glomerular Filtration Rate , Glucose Level 110H, Calcium Level 9.2, Phosphorus Level 3.0, Pro-B-Type Natriuretic Peptide 2379H 07/16/18 08:15: Arterial Blood pH 7.538H, Arterial Blood Partial Pressure CO2 63.6*H, Arterial Blood Partial Pressure O2 63.4L, Arterial Blood HCO3 52.9*H, Arterial Blood Oxygen Saturation 92.8L, Arterial Blood Base Excess 26.6*H, Guicho Test Positive Current Medications Medications (Trade) Dose Ordered Sig/Jorge Route PRN Reason Start Time Stop Time Status Last Admin Dose Admin Acetaminophen (Tylenol) 650 mg Q4H PRN ORAL fever (temp>100.5F) 07/15/18 12:15 08/07/18 16:14 Albuterol/ Ipratropium (Albuterol/ Ipratropium) 3 ml Q4HRT PRN HHN sob 07/15/18 15:00 07/19/18 07:29 07/15/18 20:10 Cefepime HCl 2 gm/ Dextrose 55 ml @ 110 mls/hr EVERY 12 HOURS IVPB 07/15/18 21:00 07/18/18 17:59 07/16/18 09:16 Clonidine HCl (Catapres Tab) 0.1 mg Q2H PRN ORAL sbp>170 07/15/18 12:00 08/12/18 15:53 Diltiazem HCl (Cardizem) 30 mg EVERY 8 HOURS GT 07/15/18 14:00 08/10/18 13:59 07/16/18 06:29 Escitalopram Oxalate (Lexapro) 10 mg DAILY ORAL 07/16/18 09:00 08/13/18 08:59 07/16/18 08:23 Furosemide (Lasix) 40 mg EVERY 12 HOURS IV 07/15/18 21:00 08/09/18 20:59 07/16/18 08:23 Haloperidol Lactate (Haldol) 5 mg Q6H PRN IM Agitation 07/15/18 16:00 08/08/18 15:54 Morphine Sulfate (Morphine Sulfate) 2 mg Q4H PRN IVP Severe Pain (Pain Scale 7-10) 07/15/18 12:00 07/17/18 11:54 Ondansetron HCl (Zofran) 4 mg Q6H PRN IVP Nausea & Vomiting 07/15/18 16:30 08/07/18 16:29 Pantoprazole (Protonix) 40 mg EVERY 12 HOURS IVP 07/15/18 21:00 08/07/18 20:59 07/16/18 08:22 Polyethylene Glycol (Miralax) 17 gm BEDTIME ORAL 07/15/18 21:00 08/13/18 20:59 07/15/18 21:26 Potassium Chloride (K-Dur) 40 meq DAILY ORAL 07/16/18 09:00 08/13/18 08:59 07/16/18 08:23 Quetiapine Fumarate (SEROquel) 12.5 mg Q4H PRN ORAL anxiety 07/15/18 12:00 08/12/18 15:53 Warfarin Sodium (Coumadin per pharmacy) 1 ea DAILY PRN MISC Per rx protocol 07/16/18 09:00 08/11/18 11:29 Warfarin Sodium (Coumadin) 3 mg COUMADIN ONCE ORAL 07/16/18 17:00 07/16/18 17:01 Gertrudis Quintanilla MD Jul 16, 2018 12:52
--- NOTE | 2018-07-16 13:10 | Cardiac Electrophysiology PN ---
Assessment/Plan Assessment/Plan 1.S/P Septic shock. Resolved. On iv Abx Echocardiogram EF 55% 2. HTN DC Lasix. 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 4. Atrial fib with RVR . On Cardizem 30 po q 8 hrs and Coumadin per Rx. 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 20 beats of nonsustained VT while in SR on 07/11/18. 7. Chronic left leg DVT. On Coumadin per RX. Duplex is still positive for DVT. 8. S/P respiratory failure, now off BiPAP. 9. Pleural effusion. Improving with Lasix. No thoracentesis now. 10. S/P PEG DW RN Subjective Subjective Comfortable in NAD. In SR confused. Sitter at bedside Objective Last 24 Hour Vital Signs Date Time Temp Pulse Resp B/P (MAP) Pulse Ox O2 Delivery O2 Flow Rate FiO2 07/16/18 12:00 98.8 71 20 139/62 (87) 92 07/16/18 09:30 63 14 95 Facial 35 07/16/18 09:00 Nasal Cannula 3.0 07/16/18 08:00 98.5 72 18 157/76 (103) 94 07/16/18 08:00 69 07/16/18 07:53 97 Nasal Cannula 2.0 28 07/16/18 07:53 Nasal Cannula 2.0 28 07/16/18 07:51 70 18 Nasal Cannula 2.0 28 07/16/18 06:29 65 137/78 07/16/18 04:00 97.0 63 20 137/78 (97) 95 07/16/18 04:00 65 07/16/18 00:00 97.0 65 19 139/66 (90) 94 07/16/18 00:00 65 07/15/18 21:27 69 160/73 07/15/18 21:00 Nasal Cannula 3.0 07/15/18 20:19 69 20 99 Nasal Cannula 2.0 28 07/15/18 20:18 69 20 99 Nasal Cannula 2.0 28 07/15/18 20:00 66 07/15/18 20:00 97.7 68 20 130/75 (93) 95 07/15/18 16:35 Nasal Cannula 2.0 28 07/15/18 16:34 96 Nasal Cannula 2.0 28 07/15/18 16:33 68 20 Nasal Cannula 2.0 28 07/15/18 16:00 68 07/15/18 16:00 Nasal Cannula 3.0 07/15/18 16:00 98.3 70 18 160/73 (102) 92 07/15/18 14:52 70 160/73 Intake and Output 07/15/18 07/16/18 18:59 06:59 Intake Total 350 ml Output Total 1000 ml 1200 ml Balance -650 ml -1200 ml Intake Free Water 50 ml Tube Feeding 300 ml Output Urine Total 1000 ml 1200 ml Laboratory Tests Test 07/16/18 07:14 07/16/18 08:15 White Blood Count 10.4 K/UL (4.8-10.8) Red Blood Count 3.16 M/UL (4.70-6.10) L Hemoglobin 10.1 G/DL (14.2-18.0) L Hematocrit 29.4 % (42.0-52.0) L Mean Corpuscular Volume 93 FL (80-99) Mean Corpuscular Hemoglobin 31.8 PG (27.0-31.0) H Mean Corpuscular Hemoglobin Concent 34.3 G/DL (32.0-36.0) Red Cell Distribution Width 14.1 % (11.6-14.8) Platelet Count 288 K/UL (150-450) Mean Platelet Volume 7.6 FL (6.5-10.1) Neutrophils (%) (Auto) 71.0 % (45.0-75.0) Lymphocytes (%) (Auto) 17.4 % (20.0-45.0) L Monocytes (%) (Auto) 2.7 % (1.0-10.0) Eosinophils (%) (Auto) 7.7 % (0.0-3.0) H Basophils (%) (Auto) 1.1 % (0.0-2.0) Prothrombin Time 17.4 SEC (9.30-11.50) H Prothromb Time International Ratio 1.7 (0.9-1.1) H Sodium Level 141 MMOL/L (136-145) Potassium Level 4.3 MMOL/L (3.5-5.1) Chloride Level 98 MMOL/L (98-107) Carbon Dioxide Level > 45 MMOL/L (21-32) *H Blood Urea Nitrogen 31 mg/dL (7-18) H Creatinine 0.7 MG/DL (0.55-1.30) Estimat Glomerular Filtration Rate mL/min (>60) Glucose Level 110 MG/DL (74-106) H Calcium Level 9.2 MG/DL (8.5-10.1) Phosphorus Level 3.0 MG/DL (2.5-4.9) Pro-B-Type Natriuretic Peptide 2379 pg/mL (0-125) H Arterial Blood pH 7.538 (7.350-7.450) Arterial Blood Partial Pressure CO2 63.6 mmHg (35.0-45.0) *H Arterial Blood Partial Pressure O2 63.4 mmHg (75.0-100.0) L Arterial Blood HCO3 52.9 mmol/L (22.0-26.0) *H Arterial Blood Oxygen Saturation 92.8 % (95-100) L Arterial Blood Base Excess 26.6 (-2-2) *H Guicho Test Positive Objective HEAD AND NECK: No JVD. LUNGS: Coarse rhonchi. CARDIOVASCULAR: Regular S1 and S2 with no gallop or murmur. ABDOMEN: Soft. GT feeding EXTREMITIES: 1+ pitting edema. Gerson Isaacs MD Jul 16, 2018 13:10
[2018-07-16 16:00] VITALS: BP 139/62
[2018-07-16] MEDS ORDERED: Warfarin Sodium 3mg ORAL ONE (17:00)
--- NOTE | 2018-07-16 19:44 | Internal Med Progress Note ---
Subjective Date of Service: Jul 16, 2018 Physician Name Dale Hale Attending Physician Elton Infante MD Current Medications Medications (Trade) Dose Ordered Sig/Jorge Route PRN Reason Start Time Stop Time Status Last Admin Dose Admin Acetaminophen (Tylenol) 650 mg Q4H PRN ORAL fever (temp>100.5F) 07/15/18 12:15 08/07/18 16:14 Albuterol/ Ipratropium (Albuterol/ Ipratropium) 3 ml Q4HRT PRN HHN sob 07/15/18 15:00 07/19/18 07:29 07/15/18 20:10 Cefepime HCl 2 gm/ Dextrose 55 ml @ 110 mls/hr EVERY 12 HOURS IVPB 07/15/18 21:00 07/18/18 17:59 07/16/18 09:16 Clonidine HCl (Catapres Tab) 0.1 mg Q2H PRN ORAL sbp>170 07/15/18 12:00 08/12/18 15:53 Diltiazem HCl (Cardizem) 30 mg EVERY 8 HOURS GT 07/15/18 14:00 08/10/18 13:59 07/16/18 14:13 Escitalopram Oxalate (Lexapro) 10 mg DAILY ORAL 07/16/18 09:00 08/13/18 08:59 07/16/18 08:23 Haloperidol Lactate (Haldol) 5 mg Q6H PRN IM Agitation 07/15/18 16:00 08/08/18 15:54 Morphine Sulfate (Morphine Sulfate) 2 mg Q4H PRN IVP Severe Pain (Pain Scale 7-10) 07/15/18 12:00 07/17/18 11:54 Ondansetron HCl (Zofran) 4 mg Q6H PRN IVP Nausea & Vomiting 07/15/18 16:30 08/07/18 16:29 Pantoprazole (Protonix) 40 mg EVERY 12 HOURS IVP 07/15/18 21:00 08/07/18 20:59 07/16/18 08:22 Polyethylene Glycol (Miralax) 17 gm BEDTIME ORAL 07/15/18 21:00 08/13/18 20:59 07/15/18 21:26 Potassium Chloride (K-Dur) 40 meq DAILY ORAL 07/16/18 09:00 08/13/18 08:59 07/16/18 08:23 Quetiapine Fumarate (SEROquel) 12.5 mg Q4H PRN ORAL anxiety 07/15/18 12:00 08/12/18 15:53 07/16/18 15:58 Warfarin Sodium (Coumadin per pharmacy) 1 ea DAILY PRN MISC Per rx protocol 07/16/18 09:00 08/11/18 11:29 Allergies: Coded Allergies: PENICILLINS (Verified Allergy, Intermediate, 07/08/18) Subjective 88 YO M admitted with altered mental status. Now UTI and sepsis. Cover for Int Kar-Dr Infante Tolerating nasal canula Objective Last Vital Signs Date Time Temp Pulse Resp B/P (MAP) Pulse Ox O2 Delivery O2 Flow Rate FiO2 07/16/18 16:00 68 07/16/18 16:00 97.8 20 139/62 (87) 92 07/16/18 09:30 Facial 35 Laboratory Tests Test 07/16/18 07:14 07/16/18 08:15 White Blood Count 10.4 K/UL (4.8-10.8) Red Blood Count 3.16 M/UL (4.70-6.10) L Hemoglobin 10.1 G/DL (14.2-18.0) L Hematocrit 29.4 % (42.0-52.0) L Mean Corpuscular Volume 93 FL (80-99) Mean Corpuscular Hemoglobin 31.8 PG (27.0-31.0) H Mean Corpuscular Hemoglobin Concent 34.3 G/DL (32.0-36.0) Red Cell Distribution Width 14.1 % (11.6-14.8) Platelet Count 288 K/UL (150-450) Mean Platelet Volume 7.6 FL (6.5-10.1) Neutrophils (%) (Auto) 71.0 % (45.0-75.0) Lymphocytes (%) (Auto) 17.4 % (20.0-45.0) L Monocytes (%) (Auto) 2.7 % (1.0-10.0) Eosinophils (%) (Auto) 7.7 % (0.0-3.0) H Basophils (%) (Auto) 1.1 % (0.0-2.0) Prothrombin Time 17.4 SEC (9.30-11.50) H Prothromb Time International Ratio 1.7 (0.9-1.1) H Sodium Level 141 MMOL/L (136-145) Potassium Level 4.3 MMOL/L (3.5-5.1) Chloride Level 98 MMOL/L (98-107) Carbon Dioxide Level > 45 MMOL/L (21-32) *H Blood Urea Nitrogen 31 mg/dL (7-18) H Creatinine 0.7 MG/DL (0.55-1.30) Estimat Glomerular Filtration Rate mL/min (>60) Glucose Level 110 MG/DL (74-106) H Calcium Level 9.2 MG/DL (8.5-10.1) Phosphorus Level 3.0 MG/DL (2.5-4.9) Pro-B-Type Natriuretic Peptide 2379 pg/mL (0-125) H Arterial Blood pH 7.538 (7.350-7.450) Arterial Blood Partial Pressure CO2 63.6 mmHg (35.0-45.0) *H Arterial Blood Partial Pressure O2 63.4 mmHg (75.0-100.0) L Arterial Blood HCO3 52.9 mmol/L (22.0-26.0) *H Arterial Blood Oxygen Saturation 92.8 % (95-100) L Arterial Blood Base Excess 26.6 (-2-2) *H Guicho Test Positive Intake and Output 07/15/18 07/16/18 19:00 07:00 Intake Total 290 ml Output Total 1000 ml 1200 ml Balance -710 ml -1200 ml Intake Free Water 50 ml Tube Feeding 240 ml Output Urine Total 1000 ml 1200 ml Objective General Appearance: WD/WN, moderate distress EENT: PERRL/EOMI, normal ENT inspection Neck: non-tender, normal alignment, supple, normal inspection Cardiovascular: normal peripheral pulses, regular rhythm, no gallop/murmur, no JVD, bradycardia Respiratory/Chest: Nasal canula; chest wall non-tender, crackles/rales, rhonchi - bilaterally, expiratory wheezing Abdomen: normal bowel sounds, non tender, soft, no organomegaly, no mass Extremities: normal range of motion, non-tender 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 Coli Continue cefepime per ID (2) Pneumonia Assessment & Plan: Bilateral. See pulmonary note. Cont ertapenem and vanco (3) Altered level of consciousness (4) UTI (urinary tract infection) Assessment & Plan: E. Coli. Continue cefepime per ID (5) Sepsis Status: not improved Assessment/Plan Social work consult pending for power of contract attorney Dale Hale MD Jul 16, 2018 19:44
[2018-07-16 20:00] VITALS: BP 165/94
[2018-07-16] MEDS: Miralax 17gm pkt ORAL SCH (20:15)
[2018-07-17] VITALS (8 sets, daily range): BP systolic 140–171; BP diastolic 69–87
--- NOTE | 2018-07-17 00:41 | General Progress Note ---
Assessment/Plan Problem List: (1) Dementia ICD Codes: F03.90 - Unspecified dementia without behavioral disturbance SNOMED: 19209735 (2) Encephalopathy due to metabolic factor or toxin SNOMED: 511103064 Assessment/Plan Haldol prn head 30degree provided ro Seroquel prn Subjective Date patient seen: Jul 15, 2018 Neurologic/Psychiatric: Reports: anxiety, depressed, emotional problems Allergies: Coded Allergies: PENICILLINS (Verified Allergy, Intermediate, 07/08/18) Subjective the pt was agitated Objective Last 24 Hour Vital Signs Date Time Temp Pulse Resp B/P (MAP) Pulse Ox O2 Delivery O2 Flow Rate FiO2 07/16/18 22:56 82 165/94 07/16/18 21:00 Nasal Cannula 3.0 07/16/18 20:20 82 20 Nasal Cannula 2.0 28 07/16/18 20:20 Nasal Cannula 2.0 28 07/16/18 20:20 96 2.0 28 07/16/18 20:15 165/94 07/16/18 20:00 97.7 73 22 165/94 (117) 96 07/16/18 20:00 73 07/16/18 16:00 68 07/16/18 16:00 97.8 70 20 139/62 (87) 92 07/16/18 14:13 70 150/80 07/16/18 12:00 98.8 71 20 139/62 (87) 92 07/16/18 12:00 65 07/16/18 09:30 63 14 95 Facial 35 07/16/18 09:00 Nasal Cannula 3.0 07/16/18 08:00 98.5 72 18 157/76 (103) 94 07/16/18 08:00 69 07/16/18 07:53 97 Nasal Cannula 2.0 28 07/16/18 07:53 Nasal Cannula 2.0 28 07/16/18 07:51 70 18 Nasal Cannula 2.0 28 07/16/18 06:29 65 137/78 07/16/18 04:00 97.0 63 20 137/78 (97) 95 07/16/18 04:00 65 Intake and Output 07/16/18 07/17/18 18:59 06:59 Intake Total 850 ml 75 ml Output Total 1000 ml Balance -150 ml 75 ml Intake Free Water 80 ml 15 ml IV Total 110 ml Tube Feeding 660 ml 60 ml Output Urine Total 1000 ml Laboratory Tests 07/16/18 07:14: White Blood Count 10.4, Red Blood Count 3.16L, Hemoglobin 10.1L, Hematocrit 29.4L, Mean Corpuscular Volume 93, Mean Corpuscular Hemoglobin 31.8H, Mean Corpuscular Hemoglobin Concent 34.3, Red Cell Distribution Width 14.1, Platelet Count 288, Mean Platelet Volume 7.6, Neutrophils (%) (Auto) 71.0, Lymphocytes (% ) (Auto) 17.4L, Monocytes (%) (Auto) 2.7, Eosinophils (%) (Auto) 7.7H, Basophils (%) (Auto) 1.1, Prothrombin Time 17.4H, Prothromb Time International Ratio 1.7H, Sodium Level 141, Potassium Level 4.3, Chloride Level 98, Carbon Dioxide Level > 45*H, Blood Urea Nitrogen 31H, Creatinine 0.7, Estimat Glomerular Filtration Rate , Glucose Level 110H, Calcium Level 9.2, Phosphorus Level 3.0, Pro-B-Type Natriuretic Peptide 2379H 07/16/18 08:15: Arterial Blood pH 7.538H, Arterial Blood Partial Pressure CO2 63.6*H, Arterial Blood Partial Pressure O2 63.4L, Arterial Blood HCO3 52.9*H, Arterial Blood Oxygen Saturation 92.8L, Arterial Blood Base Excess 26.6*H, Guicho Test Positive Height (Feet): 6 Height (Inches): 2.00 Weight (Pounds): 212 Bartolome Martin MD Jul 17, 2018 00:41
[2018-07-17] MEDS: dilTIAZem HCl 30mg tab GT SCH ×3 (06:28→21:36)
[2018-07-17 06:32] LABS: BASOPHILS % (AUTO) 0.9 % (0.0-2.0); EOSINOPHILS % (AUTO) 10.9 % (0.0-3.0); HEMATOCRIT 28.5 % (42.0-52.0); HEMOGLOBIN 9.5 G/DL (14.2-18.0); LYMPHOCYTES % (AUTO) 12.5 % (20.0-45.0); MEAN CORPUSCULAR VOLUME 93 FL (80-99); MONOCYTES % (AUTO) 6.7 % (1.0-10.0); NEUTROPHILS % (AUTO) 69.2 % (45.0-75.0); PLATELET COUNT 326 K/UL (150-450); RED BLOOD COUNT 3.05 M/UL (4.70-6.10); RED CELL DISTRIBUTION WIDTH 14.2 % (11.6-14.8); WHITE BLOOD COUNT 6.9 K/UL (4.8-10.8)
[2018-07-17 06:51] LABS: INR 1.5 (0.9-1.1)
[2018-07-17 07:01] LABS: BLOOD UREA NITROGEN 34 mg/dL (7-18); CALCIUM 9.1 MG/DL (8.5-10.1); CHLORIDE 101 MMOL/L (98-107); CREATININE 0.7 MG/DL (0.55-1.30); SODIUM 148 MMOL/L (136-145)
[2018-07-17 07:03] LABS: CARBON DIOXIDE > 45 MMOL/L (21-32)
[2018-07-17] MEDS: Pantoprazole Inj IVP SCH ×2 (08:24→20:42)
[2018-07-17] MEDS: Cefepime HCl 2 GM in D5W 55 ML IVPB SCH ×2 (08:25→20:43)
--- NOTE | 2018-07-17 10:49 | Pulmonology Progress Note ---
Assessment/Plan Problems: (1) Multiple organ failure (2) Septic shock (3) Pulmonary edema (4) ATN (acute tubular necrosis) (5) Pneumonia (6) Feeding by G-tube (7) Dementia Assessment/Plan sinus rhythm afebrile continue antibiotics on cefepime dc IV fluids off lasix iv f/u bun/creatinine Gtube feeding poor prognosis consider DNR status Subjective ROS Limited/Unobtainable: Yes Interval Events: confused Allergies: Coded Allergies: PENICILLINS (Verified Allergy, Intermediate, 07/08/18) Objective Last 24 Hour Vital Signs Date Time Temp Pulse Resp B/P (MAP) Pulse Ox O2 Delivery O2 Flow Rate FiO2 07/17/18 09:00 Nasal Cannula 3.0 07/17/18 08:28 96 2.0 28 07/17/18 08:28 78 16 Nasal Cannula 2.0 28 07/17/18 08:28 Nasal Cannula 2.0 28 07/17/18 08:00 98.0 53 16 141/70 (93) 97 07/17/18 08:00 52 07/17/18 06:28 54 150/79 07/17/18 04:00 98.1 57 20 165/69 (101) 99 07/17/18 04:00 54 07/17/18 00:00 61 07/17/18 00:00 97.3 64 22 150/79 (102) 93 07/16/18 22:56 82 165/94 07/16/18 21:00 Nasal Cannula 3.0 07/16/18 20:20 82 20 Nasal Cannula 2.0 28 07/16/18 20:20 Nasal Cannula 2.0 28 07/16/18 20:20 96 2.0 28 07/16/18 20:15 165/94 07/16/18 20:00 97.7 73 22 165/94 (117) 96 07/16/18 20:00 73 07/16/18 16:00 68 07/16/18 16:00 97.8 70 20 139/62 (87) 92 07/16/18 14:13 70 150/80 07/16/18 12:00 98.8 71 20 139/62 (87) 92 07/16/18 12:00 65 Intake and Output 07/16/18 07/17/18 19:00 07:00 Intake Total 925 ml Output Total 1000 ml 575 ml Balance -75 ml -575 ml Intake Free Water 95 ml IV Total 110 ml Tube Feeding 720 ml Output Urine Total 1000 ml 575 ml General Appearance: cachetic HEENT: normocephalic Respiratory/Chest: chest wall non-tender, lungs clear, normal breath sounds Cardiovascular: normal peripheral pulses, normal rate Abdomen: normal bowel sounds, soft, non tender, no organomegaly Genitourinary: normal external genitalia Extremities: no cyanosis 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/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: 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 II-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 Laboratory Tests 07/17/18 05:40: White Blood Count 6.9, Red Blood Count 3.05L, Hemoglobin 9.5L, Hematocrit 28.5L , Mean Corpuscular Volume 93, Mean Corpuscular Hemoglobin 31.0, Mean Corpuscular Hemoglobin Concent 33.2, Red Cell Distribution Width 14.2, Platelet Count 326, Mean Platelet Volume 6.6, Neutrophils (%) (Auto) 69.2, Lymphocytes (% ) (Auto) 12.5L, Monocytes (%) (Auto) 6.7, Eosinophils (%) (Auto) 10.9H, Basophils (%) (Auto) 0.9, Prothrombin Time 15.8H, Prothromb Time International Ratio 1.5H, Sodium Level 148H, Potassium Level 3.0L, Chloride Level 101, Carbon Dioxide Level > 45*H, Blood Urea Nitrogen 34H, Creatinine 0.7, Estimat Glomerular Filtration Rate , Glucose Level 116H, Calcium Level 9.1 Current Medications Medications (Trade) Dose Ordered Sig/Jorge Route PRN Reason Start Time Stop Time Status Last Admin Dose Admin Acetaminophen (Tylenol) 650 mg Q4H PRN ORAL fever (temp>100.5F) 07/15/18 12:15 08/07/18 16:14 Albuterol/ Ipratropium (Albuterol/ Ipratropium) 3 ml Q4HRT PRN HHN sob 07/15/18 15:00 07/19/18 07:29 07/15/18 20:10 Cefepime HCl 2 gm/ Dextrose 55 ml @ 110 mls/hr EVERY 12 HOURS IVPB 07/15/18 21:00 07/18/18 17:59 07/17/18 08:25 Clonidine HCl (Catapres Tab) 0.1 mg Q2H PRN ORAL sbp>170 07/15/18 12:00 08/12/18 15:53 07/16/18 20:15 Diltiazem HCl (Cardizem) 30 mg EVERY 8 HOURS GT 07/15/18 14:00 08/10/18 13:59 07/17/18 06:28 Escitalopram Oxalate (Lexapro) 10 mg DAILY ORAL 07/16/18 09:00 08/13/18 08:59 07/17/18 08:24 Haloperidol Lactate (Haldol) 5 mg Q6H PRN IM Agitation 07/15/18 16:00 08/08/18 15:54 Morphine Sulfate (Morphine Sulfate) 2 mg Q4H PRN IVP Severe Pain (Pain Scale 7-10) 07/15/18 12:00 07/17/18 11:54 Ondansetron HCl (Zofran) 4 mg Q6H PRN IVP Nausea & Vomiting 07/15/18 16:30 08/07/18 16:29 Pantoprazole (Protonix) 40 mg EVERY 12 HOURS IVP 07/15/18 21:00 08/07/18 20:59 07/17/18 08:24 Polyethylene Glycol (Miralax) 17 gm BEDTIME ORAL 07/15/18 21:00 08/13/18 20:59 07/16/18 20:15 Potassium Chloride (K-Dur) 40 meq DAILY ORAL 07/16/18 09:00 08/13/18 08:59 07/17/18 08:24 Quetiapine Fumarate (SEROquel) 12.5 mg Q4H PRN ORAL anxiety 07/15/18 12:00 08/12/18 15:53 07/16/18 15:58 Warfarin Sodium (Coumadin per pharmacy) 1 ea DAILY PRN MISC Per rx protocol 07/16/18 09:00 08/11/18 11:29 Warfarin Sodium (Coumadin) 4 mg COUMADIN ONCE PO 07/17/18 17:00 07/17/18 17:01 Gertrudis Quintanilla MD Jul 17, 2018 10:49
[2018-07-17] MEDS: Albuterol/Ipratropium 3ml neb HHN PRN ×2 (12:23→20:37)
--- NOTE | 2018-07-17 15:36 | Cardiac Electrophysiology PN ---
Assessment/Plan Assessment/Plan 1.S/P Septic shock. Resolved. On iv Abx Echocardiogram EF 55% 2. 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 4. Atrial fib with RVR . On Cardizem 30 po q 8 hrs and Coumadin per Rx. 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 20 beats of nonsustained VT while in SR on 07/11/18. EF 55%. EPS not indicated 7. Chronic left leg DVT. On Coumadin per RX. Duplex is still positive for DVT. 8. S/P respiratory failure, now off BiPAP. 9. Pleural effusion. Improved with Lasix. No thoracentesis now. 10. S/P PEG DW RN Subjective Subjective Comfortable in NAD. In SR in high 50s and still confused. Objective Last 24 Hour Vital Signs Date Time Temp Pulse Resp B/P (MAP) Pulse Ox O2 Delivery O2 Flow Rate FiO2 07/17/18 13:16 70 155/79 07/17/18 12:33 97.8 70 16 155/79 (104) 97 07/17/18 12:30 79 20 99 Nasal Cannula 2.0 28 07/17/18 12:20 75 18 97 Nasal Cannula 2.0 28 07/17/18 12:00 72 07/17/18 12:00 97.8 67 16 171/78 (109) 97 07/17/18 09:00 Nasal Cannula 3.0 07/17/18 08:28 96 2.0 28 07/17/18 08:28 78 16 Nasal Cannula 2.0 28 07/17/18 08:28 Nasal Cannula 2.0 28 07/17/18 08:00 98.0 53 16 141/70 (93) 97 07/17/18 08:00 52 07/17/18 06:28 54 150/79 07/17/18 04:00 98.1 57 20 165/69 (101) 99 07/17/18 04:00 54 07/17/18 00:00 61 07/17/18 00:00 97.3 64 22 150/79 (102) 93 07/16/18 22:56 82 165/94 07/16/18 21:00 Nasal Cannula 3.0 07/16/18 20:20 82 20 Nasal Cannula 2.0 28 07/16/18 20:20 Nasal Cannula 2.0 28 07/16/18 20:20 96 2.0 28 07/16/18 20:15 165/94 07/16/18 20:00 97.7 73 22 165/94 (117) 96 07/16/18 20:00 73 07/16/18 16:00 68 07/16/18 16:00 97.8 70 20 139/62 (87) 92 Intake and Output 07/16/18 07/17/18 18:59 06:59 Intake Total 850 ml 75 ml Output Total 1000 ml 575 ml Balance -150 ml -500 ml Intake Free Water 80 ml 15 ml IV Total 110 ml Tube Feeding 660 ml 60 ml Output Urine Total 1000 ml 575 ml Laboratory Tests Test 07/17/18 05:40 White Blood Count 6.9 K/UL (4.8-10.8) Red Blood Count 3.05 M/UL (4.70-6.10) L Hemoglobin 9.5 G/DL (14.2-18.0) L Hematocrit 28.5 % (42.0-52.0) L Mean Corpuscular Volume 93 FL (80-99) Mean Corpuscular Hemoglobin 31.0 PG (27.0-31.0) Mean Corpuscular Hemoglobin Concent 33.2 G/DL (32.0-36.0) Red Cell Distribution Width 14.2 % (11.6-14.8) Platelet Count 326 K/UL (150-450) Mean Platelet Volume 6.6 FL (6.5-10.1) Neutrophils (%) (Auto) 69.2 % (45.0-75.0) Lymphocytes (%) (Auto) 12.5 % (20.0-45.0) L Monocytes (%) (Auto) 6.7 % (1.0-10.0) Eosinophils (%) (Auto) 10.9 % (0.0-3.0) H Basophils (%) (Auto) 0.9 % (0.0-2.0) Prothrombin Time 15.8 SEC (9.30-11.50) H Prothromb Time International Ratio 1.5 (0.9-1.1) H Sodium Level 148 MMOL/L (136-145) H Potassium Level 3.0 MMOL/L (3.5-5.1) L Chloride Level 101 MMOL/L (98-107) Carbon Dioxide Level > 45 MMOL/L (21-32) *H Blood Urea Nitrogen 34 mg/dL (7-18) H Creatinine 0.7 MG/DL (0.55-1.30) Estimat Glomerular Filtration Rate mL/min (>60) Glucose Level 116 MG/DL (74-106) H Calcium Level 9.1 MG/DL (8.5-10.1) Objective HEAD AND NECK: No JVD. LUNGS: Coarse rhonchi. CARDIOVASCULAR: Regular S1 and S2 with no gallop or murmur. ABDOMEN: Soft. GT feeding EXTREMITIES: 1+ pitting edema. Gerson Isaacs MD Jul 17, 2018 15:36
[2018-07-17] MEDS ORDERED: Warfarin Sodium 4mg PO ONE (17:00)
--- NOTE | 2018-07-17 17:43 | Infectious Diseases Prog Note ---
Assessment/Plan Assessment/Plan ASSESSMENT: The patient is an 88-year-old male with: Fever, Sp Leukocytosis, Sp UTI Ecoli / PSA Bacteremia E Coli doubt pneumonia pleural effusion 07/16 CXR: Slightly increased right pleural effusion. Otherwise stable findings over 2 days, as described 07/11 CXR: Pulmonary edema. Suspected bilateral pleural effusions. No interval change LACosis, Sp CHF EF: 55% Hypertension Gout Depression Anemia History of tongue cancer PLAN: - Continue the patient on Cefepime d# 7 /10 11 SP Rocephin d # 2 116 Sp IV vancomycin and ertapenem d# 2 11 Sp IV amikacin d# 2 -Monitor CBC. -Monitor BMP -Monitor x-rays. Subjective Constitutional: Denies: no symptoms, fever, chills, fatigue, anorexia, drenching sweats, other Allergies: Coded Allergies: PENICILLINS (Verified Allergy, Intermediate, 07/08/18) Subjective comfortable Objective Vital Signs Last 24 Hour Vital Signs Date Time Temp Pulse Resp B/P (MAP) Pulse Ox O2 Delivery O2 Flow Rate FiO2 07/17/18 16:00 98.2 59 16 142/72 (95) 97 07/17/18 13:16 70 155/79 07/17/18 12:33 97.8 70 16 155/79 (104) 97 07/17/18 12:30 79 20 99 Nasal Cannula 2.0 28 07/17/18 12:20 75 18 97 Nasal Cannula 2.0 28 07/17/18 12:00 72 07/17/18 12:00 97.8 67 16 171/78 (109) 97 07/17/18 09:00 Nasal Cannula 3.0 07/17/18 08:28 96 2.0 28 07/17/18 08:28 78 16 Nasal Cannula 2.0 28 07/17/18 08:28 Nasal Cannula 2.0 28 07/17/18 08:00 98.0 53 16 141/70 (93) 97 07/17/18 08:00 52 07/17/18 06:28 54 150/79 07/17/18 04:00 98.1 57 20 165/69 (101) 99 07/17/18 04:00 54 07/17/18 00:00 61 07/17/18 00:00 97.3 64 22 150/79 (102) 93 07/16/18 22:56 82 165/94 07/16/18 21:00 Nasal Cannula 3.0 07/16/18 20:20 82 20 Nasal Cannula 2.0 28 07/16/18 20:20 Nasal Cannula 2.0 28 07/16/18 20:20 96 2.0 28 18 20:15 165/94 07/16/18 20:00 97.7 73 22 165/94 (117) 96 07/16/18 20:00 73 Height (Feet): 6 Height (Inches): 2.00 Weight (Pounds): 201 HEENT: anicteric Respiratory/Chest: lungs clear Cardiovascular: regular rhythm, no JVD Laboratory Tests Test 07/17/18 05:40 White Blood Count 6.9 K/UL (4.8-10.8) Red Blood Count 3.05 M/UL (4.70-6.10) L Hemoglobin 9.5 G/DL (14.2-18.0) L Hematocrit 28.5 % (42.0-52.0) L Mean Corpuscular Volume 93 FL (80-99) Mean Corpuscular Hemoglobin 31.0 PG (27.0-31.0) Mean Corpuscular Hemoglobin Concent 33.2 G/DL (32.0-36.0) Red Cell Distribution Width 14.2 % (11.6-14.8) Platelet Count 326 K/UL (150-450) Mean Platelet Volume 6.6 FL (6.5-10.1) Neutrophils (%) (Auto) 69.2 % (45.0-75.0) Lymphocytes (%) (Auto) 12.5 % (20.0-45.0) L Monocytes (%) (Auto) 6.7 % (1.0-10.0) Eosinophils (%) (Auto) 10.9 % (0.0-3.0) H Basophils (%) (Auto) 0.9 % (0.0-2.0) Prothrombin Time 15.8 SEC (9.30-11.50) H Prothromb Time International Ratio 1.5 (0.9-1.1) H Sodium Level 148 MMOL/L (136-145) H Potassium Level 3.0 MMOL/L (3.5-5.1) L Chloride Level 101 MMOL/L (98-107) Carbon Dioxide Level > 45 MMOL/L (21-32) *H Blood Urea Nitrogen 34 mg/dL (7-18) H Creatinine 0.7 MG/DL (0.55-1.30) Estimat Glomerular Filtration Rate mL/min (>60) Glucose Level 116 MG/DL (74-106) H Calcium Level 9.1 MG/DL (8.5-10.1) Current Medications Medications (Trade) Dose Ordered Sig/Jorge Route PRN Reason Start Time Stop Time Status Last Admin Dose Admin Acetaminophen (Tylenol) 650 mg Q4H PRN ORAL fever (temp>100.5F) 07/15/18 12:15 08/07/18 16:14 Albuterol/ Ipratropium (Albuterol/ Ipratropium) 3 ml Q4HRT PRN HHN sob 07/15/18 15:00 07/19/18 07:29 07/17/18 12:23 Cefepime HCl 2 gm/ Dextrose 55 ml @ 110 mls/hr EVERY 12 HOURS IVPB 07/15/18 21:00 07/18/18 17:59 07/17/18 08:25 Clonidine HCl (Catapres Tab) 0.1 mg Q2H PRN ORAL sbp>170 07/15/18 12:00 08/12/18 15:53 07/16/18 20:15 Diltiazem HCl (Cardizem) 30 mg EVERY 8 HOURS GT 07/15/18 14:00 08/10/18 13:59 07/17/18 13:16 Escitalopram Oxalate (Lexapro) 10 mg DAILY ORAL 07/16/18 09:00 08/13/18 08:59 07/17/18 08:24 Haloperidol Lactate (Haldol) 5 mg Q6H PRN IM Agitation 07/15/18 16:00 08/08/18 15:54 Ondansetron HCl (Zofran) 4 mg Q6H PRN IVP Nausea & Vomiting 07/15/18 16:30 08/07/18 16:29 Pantoprazole (Protonix) 40 mg EVERY 12 HOURS IVP 07/15/18 21:00 08/07/18 20:59 07/17/18 08:24 Polyethylene Glycol (Miralax) 17 gm BEDTIME ORAL 07/15/18 21:00 08/13/18 20:59 07/16/18 20:15 Potassium Chloride (K-Dur) 40 meq DAILY ORAL 07/16/18 09:00 08/13/18 08:59 07/17/18 08:24 Quetiapine Fumarate (SEROquel) 12.5 mg Q4H PRN ORAL anxiety 07/15/18 12:00 08/12/18 15:53 07/17/18 12:21 Warfarin Sodium (Coumadin per pharmacy) 1 ea DAILY PRN MISC Per rx protocol 07/16/18 09:00 08/11/18 11:29 Thuan Marti MD Jul 17, 2018 17:43
--- NOTE | 2018-07-17 18:00 | Internal Med Progress Note ---
Subjective Date of Service: Jul 17, 2018 Physician Name Dale Hale Attending Physician Elton Infante MD Current Medications Medications (Trade) Dose Ordered Sig/Jorge Route PRN Reason Start Time Stop Time Status Last Admin Dose Admin Acetaminophen (Tylenol) 650 mg Q4H PRN ORAL fever (temp>100.5F) 07/15/18 12:15 08/07/18 16:14 Albuterol/ Ipratropium (Albuterol/ Ipratropium) 3 ml Q4HRT PRN HHN sob 07/15/18 15:00 07/19/18 07:29 07/17/18 12:23 Cefepime HCl 2 gm/ Dextrose 55 ml @ 110 mls/hr EVERY 12 HOURS IVPB 07/15/18 21:00 07/18/18 17:59 07/17/18 08:25 Clonidine HCl (Catapres Tab) 0.1 mg Q2H PRN ORAL sbp>170 07/15/18 12:00 08/12/18 15:53 07/16/18 20:15 Diltiazem HCl (Cardizem) 30 mg EVERY 8 HOURS GT 07/15/18 14:00 08/10/18 13:59 07/17/18 13:16 Escitalopram Oxalate (Lexapro) 10 mg DAILY ORAL 07/16/18 09:00 08/13/18 08:59 07/17/18 08:24 Haloperidol Lactate (Haldol) 5 mg Q6H PRN IM Agitation 07/15/18 16:00 08/08/18 15:54 Ondansetron HCl (Zofran) 4 mg Q6H PRN IVP Nausea & Vomiting 07/15/18 16:30 08/07/18 16:29 Pantoprazole (Protonix) 40 mg EVERY 12 HOURS IVP 07/15/18 21:00 08/07/18 20:59 07/17/18 08:24 Polyethylene Glycol (Miralax) 17 gm BEDTIME ORAL 07/15/18 21:00 08/13/18 20:59 07/16/18 20:15 Potassium Chloride (K-Dur) 40 meq DAILY ORAL 07/16/18 09:00 08/13/18 08:59 07/17/18 08:24 Quetiapine Fumarate (SEROquel) 12.5 mg Q4H PRN ORAL anxiety 07/15/18 12:00 08/12/18 15:53 07/17/18 12:21 Warfarin Sodium (Coumadin per pharmacy) 1 ea DAILY PRN MISC Per rx protocol 07/16/18 09:00 08/11/18 11:29 Allergies: Coded Allergies: PENICILLINS (Verified Allergy, Intermediate, 07/08/18) ROS Limited/Unobtainable: No Constitutional: Reports: no symptoms HEENT: Reports: no symptoms Cardiovascular: Reports: no symptoms Respiratory: Reports: no symptoms Gastrointestinal/Abdominal: Reports: no symptoms Genitourinary: Reports: no symptoms Neurologic/Psychiatric: Reports: no symptoms Subjective 88 YO M admitted with altered mental status. Now UTI and sepsis. Cover for Int Kar-Dr Infante Tolerating nasal canula Objective Last Vital Signs Date Time Temp Pulse Resp B/P (MAP) Pulse Ox O2 Delivery O2 Flow Rate FiO2 07/17/18 16:00 51 07/17/18 16:00 98.2 16 142/72 (95) 97 07/17/18 12:30 Nasal Cannula 2.0 28 Laboratory Tests Test 07/17/18 05:40 White Blood Count 6.9 K/UL (4.8-10.8) Red Blood Count 3.05 M/UL (4.70-6.10) L Hemoglobin 9.5 G/DL (14.2-18.0) L Hematocrit 28.5 % (42.0-52.0) L Mean Corpuscular Volume 93 FL (80-99) Mean Corpuscular Hemoglobin 31.0 PG (27.0-31.0) Mean Corpuscular Hemoglobin Concent 33.2 G/DL (32.0-36.0) Red Cell Distribution Width 14.2 % (11.6-14.8) Platelet Count 326 K/UL (150-450) Mean Platelet Volume 6.6 FL (6.5-10.1) Neutrophils (%) (Auto) 69.2 % (45.0-75.0) Lymphocytes (%) (Auto) 12.5 % (20.0-45.0) L Monocytes (%) (Auto) 6.7 % (1.0-10.0) Eosinophils (%) (Auto) 10.9 % (0.0-3.0) H Basophils (%) (Auto) 0.9 % (0.0-2.0) Prothrombin Time 15.8 SEC (9.30-11.50) H Prothromb Time International Ratio 1.5 (0.9-1.1) H Sodium Level 148 MMOL/L (136-145) H Potassium Level 3.0 MMOL/L (3.5-5.1) L Chloride Level 101 MMOL/L (98-107) Carbon Dioxide Level > 45 MMOL/L (21-32) *H Blood Urea Nitrogen 34 mg/dL (7-18) H Creatinine 0.7 MG/DL (0.55-1.30) Estimat Glomerular Filtration Rate mL/min (>60) Glucose Level 116 MG/DL (74-106) H Calcium Level 9.1 MG/DL (8.5-10.1) Intake and Output 07/16/18 07/17/18 19:00 07:00 Intake Total 925 ml Output Total 1000 ml 575 ml Balance -75 ml -575 ml Intake Free Water 95 ml IV Total 110 ml Tube Feeding 720 ml Output Urine Total 1000 ml 575 ml Objective General Appearance: WD/WN, moderate distress EENT: PERRL/EOMI, normal ENT inspection Neck: non-tender, normal alignment, supple, normal inspection Cardiovascular: normal peripheral pulses, regular rhythm, no gallop/murmur, no JVD, bradycardia Respiratory/Chest: Nasal canula; chest wall non-tender, crackles/rales, rhonchi - bilaterally, expiratory wheezing Abdomen: normal bowel sounds, non tender, soft, no organomegaly, no mass Extremities: normal range of motion, non-tender Neurologic: applications support specialist II-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 Skin: normal pigmentation Assessment/Plan Problem List: (1) Septic shock Assessment & Plan: E. Coli Continue cefepime per ID (2) Pneumonia Assessment & Plan: Bilateral. See pulmonary note. Cont ertapenem and vanco (3) Altered level of consciousness (4) UTI (urinary tract infection) Assessment & Plan: E. Coli. Continue cefepime per ID (5) Sepsis Status: progressing Dale Hale MD Jul 17, 2018 18:00
--- NOTE | 2018-07-17 18:02 | Progress Note ---
DATE: 07/17/2018 SUBJECTIVE: The patient continues to be anxious today, is less agitated, and has cognitive impairment and forgetful. The patient is alert and oriented times self situation. Did not know the date. agitated. MENTAL STATUS EXAMINATION: The patient is alert and oriented times self, place, and situation. Mood is anxious and agitated. Affect is blunted, congruent with mood. Thought process is concrete. Thought content, no suicidal or homicidal ideation. 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 PLAN: We will continue the current medication. Provide the patient with supportive therapy and reality orientation. We will continue to follow and readjust the medications. Bartolome Martin M.D. DR: Rip JOB#: [id number] CC:
[2018-07-17] MEDS ORDERED: Acetaminophen 650mg/20.3ml GT PRN ×2 (18:30→22:30)
[2018-07-17] MEDS ORDERED: Miralax 17gm pkt GT SCH (21:00)
[2018-07-18] VITALS: BP 144/79
[2018-07-18] MEDS ORDERED: Haloperidol 5mg/ml Inj IM PRN (04:00)
[2018-07-18 04:29] VITALS: BP 149/91
[2018-07-18] MEDS: dilTIAZem HCl 30mg tab GT SCH ×2 (05:03→14:08)
[2018-07-18 06:36] LABS: INR 1.7 (0.9-1.1)
[2018-07-18 06:41] LABS: BASOPHILS % (AUTO) 0.8 % (0.0-2.0); EOSINOPHILS % (AUTO) 11.9 % (0.0-3.0); HEMATOCRIT 28.4 % (42.0-52.0); HEMOGLOBIN 9.3 G/DL (14.2-18.0); LYMPHOCYTES % (AUTO) 11.4 % (20.0-45.0); MEAN CORPUSCULAR VOLUME 94 FL (80-99); MONOCYTES % (AUTO) 7.2 % (1.0-10.0); NEUTROPHILS % (AUTO) 68.7 % (45.0-75.0); PLATELET COUNT 312 K/UL (150-450); RED BLOOD COUNT 3.03 M/UL (4.70-6.10); RED CELL DISTRIBUTION WIDTH 13.7 % (11.6-14.8)
[2018-07-18] MEDS: Albuterol/Ipratropium 3ml neb HHN PRN ×3 (06:59→17:12)
[2018-07-18 08:00] VITALS: BP 121/78
[2018-07-18 08:04] LABS: ALANINE AMINOTRANSFERASE 31 U/L (12-78); ALBUMIN 2.4 G/DL (3.4-5.0); ALBUMIN/GLOBULIN RATIO 0.5 (1.0-2.7); ALKALINE PHOSPHATASE 167 U/L (46-116); ASPARTATE AMINO TRANSFERASE 29 U/L (15-37); BILIRUBIN,TOTAL 0.3 MG/DL (0.2-1.0); BLOOD UREA NITROGEN 33 mg/dL (7-18); CHLORIDE 103 MMOL/L (98-107); CREATININE 0.7 MG/DL (0.55-1.30); POTASSIUM 3.4 MMOL/L (3.5-5.1); SODIUM 147 MMOL/L (136-145)
[2018-07-18 08:08] LABS: CARBON DIOXIDE > 45 MMOL/L (21-32)
[2018-07-18] MEDS ORDERED: Pantoprazole Inj IVP SCH (09:00)
[2018-07-18] MEDS ORDERED: Cefepime HCl 2 GM in D5W 55 ML IVPB SCH (09:00)
--- NOTE | 2018-07-18 11:48 | GI Initial Consult Note ---
History of Present Illness General Date patient seen: Jul 18, 2018 Time patient seen: 13:14 Reason for Hospitalization: Altered Level of Consciousness Referring physician: NOMAN CAMERON Reason for Consultation: GT REPLACEMENT Present Illness HPI The patient is a resident of [facility]. Much of the history and physical has taken from the patient's previous caregiver. The patient apparently was admitted to the [facility] previously. The patient was discharged to [facility]. The patient has a history of deep venous thrombosis. The patient is on Coumadin therapy. According to the staff at [facility], the patient became altered for the last couple of days. The patient is usually able to speak and answer questions. The patient was increasingly altered on Monday, July 07, 2018. The patient was transferred to [facility] for an evaluation. The patient was found to have urinary tract infection and congestive heart failure. The patient is admitted for urinary tract infection and presumed sepsis. GI consulted for GT leakage. Pt seen, awake A&Ox4 NAD with no active s/sx of N/ V/D. GT site assessed, noted with tear in GT. Balloon not fully inflated. Home Meds Reported Medications Vit C/Ascorbate Ca/Ascorb Sod (VITAMIN C 500 MG/15 ML LIQUID) 500 Mg/15 Ml Liquid, 500 MG PO DAILY for SUPPLEMENT, ML 07/12/18 Valsartan (Diovan) 160 Mg Tablet, 160 MG ORAL BID, TAB 07/12/18 Sennosides (SENNA) 8.6 Mg Tablet, 8.6 MG PO DAILY PRN for Constipation, TAB 07/12/18 Potassium Chloride (POTASSIUM CHLORIDE) 40 Meq/15 Ml Liquid, 40 MEQ PO EVERY OTHER DAY, ML 07/12/18 Polyethylene Glycol 3350* (POLYETHYLENE GLYCOL 3350*) 17 Gm Powd.pack, 17 GM ORAL BEDTIME PRN for Constipation, PACKET 07/12/18 Mirtazapine (REMERON) 45 Mg Tab.rapdis, 45 MG ORAL BEDTIME for DEPRESSION, TAB 07/12/18 Melatonin (MELATONIN) 3 Mg Tablet, 3 MG ORAL BEDTIME PRN for INSOMNIA, TAB 07/12/18 Guaifenesin* (GUAIFENESIN) 100 Mg/5 Ml Liquid, 10 ML ORAL PRN for For Cough, # 120 ML 0 Refills 07/12/18 Furosemide (Furosemide) 10 Mg/1 Ml Vial, 20 MG IV DAILY for CHF, VIAL 07/12/18 Ipratropium/Albuterol Sulfate (DuoNeb 0.5-3(2.5)mg/3ml) 3 Ml Ampul.neb, 3 ML HHN Q6HR PRN for Shortness of Breath, EA 07/12/18 Carboxymethylcellulose Sodium (LUBRICANT EYE DROPS) 1 Each Droperette, 1 EACH OP PRN for Dry Eyes 07/12/18 Warfarin Sod* (COUMADIN*) 4 Mg Tablet, 4 MG ORAL DAILY for DVT, TAB 07/12/18 Med list reviewed/reconciled: Yes Allergies: Coded Allergies: PENICILLINS (Verified Allergy, Intermediate, 07/08/18) Patient History PMH Narrative Significant for, 1. Congestive heart failure. 2. Hypertension. 3. Benign prostatic hypertrophy. 4. Iron deficiency anemia. PAST SURGICAL HISTORY: Unknown. Social History: Denies: smoking, alcohol use, drug use, other Review of Systems All Other Systems: negative except mentioned in HPI Physical Exam Vital Signs Date Time Temp Pulse Resp B/P (MAP) Pulse Ox O2 Delivery O2 Flow Rate FiO2 07/14/18 08:00 97.9 62 20 147/72 (97) 97 07/14/18 08:00 Nasal Cannula 3.0 07/14/18 08:12 28 Sp02 EP Interpretation: reviewed, normal Labs Laboratory Tests Test 07/18/18 05:40 White Blood Count 7.0 K/UL (4.8-10.8) Red Blood Count 3.03 M/UL (4.70-6.10) L Hemoglobin 9.3 G/DL (14.2-18.0) L Hematocrit 28.4 % (42.0-52.0) L Mean Corpuscular Volume 94 FL (80-99) Mean Corpuscular Hemoglobin 30.8 PG (27.0-31.0) Mean Corpuscular Hemoglobin Concent 32.9 G/DL (32.0-36.0) Red Cell Distribution Width 13.7 % (11.6-14.8) Platelet Count 312 K/UL (150-450) Mean Platelet Volume 6.8 FL (6.5-10.1) Neutrophils (%) (Auto) 68.7 % (45.0-75.0) Lymphocytes (%) (Auto) 11.4 % (20.0-45.0) L Monocytes (%) (Auto) 7.2 % (1.0-10.0) Eosinophils (%) (Auto) 11.9 % (0.0-3.0) H Basophils (%) (Auto) 0.8 % (0.0-2.0) Prothrombin Time 17.8 SEC (9.30-11.50) H Prothromb Time International Ratio 1.7 (0.9-1.1) H Sodium Level 147 MMOL/L (136-145) H Potassium Level 3.4 MMOL/L (3.5-5.1) L Chloride Level 103 MMOL/L (98-107) Carbon Dioxide Level > 45 MMOL/L (21-32) *H Blood Urea Nitrogen 33 mg/dL (7-18) H Creatinine 0.7 MG/DL (0.55-1.30) Estimat Glomerular Filtration Rate mL/min (>60) Glucose Level 113 MG/DL (74-106) H Calcium Level 9.0 MG/DL (8.5-10.1) Total Bilirubin 0.3 MG/DL (0.2-1.0) Aspartate Amino Transf (AST/SGOT) 29 U/L (15-37) Alanine Aminotransferase (ALT/SGPT) 31 U/L (12-78) Alkaline Phosphatase 167 U/L (46-116) H Pro-B-Type Natriuretic Peptide 2786 pg/mL (0-125) H Total Protein 7.0 G/DL (6.4-8.2) Albumin 2.4 G/DL (3.4-5.0) L Globulin 4.6 g/dL Albumin/Globulin Ratio 0.5 (1.0-2.7) L General Appearance: well appearing, no apparent distress, alert Head: normocephalic EENT: PERRL/EOMI, normal ENT inspection Neck: supple Respiratory: normal breath sounds, no respiratory distress Cardiovascular: normal rate Gastrointestinal: normal inspection, non tender, soft, normal bowel sounds, non -distended, gt - to be changed Rectal: deferred Genitourinary: deferred Musculoskeletal: normal inspection, back normal Neurologic: normal inspection, alert, oriented x3, responsive Psychiatric: normal inspection, judgement/insight normal, memory normal Skin: normal inspection, normal color, no rash, warm/dry, palpation normal, well hydrated Lymphatic: normal inspection, no adenopathy Current Medications Current Medications Medications (Trade) Dose Ordered Sig/Jorge Route PRN Reason Start Time Stop Time Status Last Admin Dose Admin Acetaminophen (Tylenol) 650 mg Q4H PRN GT Temp > 100.5 07/17/18 22:30 08/16/18 18:29 Albuterol/ Ipratropium (Albuterol/ Ipratropium) 3 ml Q4HRT PRN HHN sob 07/17/18 23:00 07/19/18 07:29 07/18/18 06:59 Cefepime HCl 2 gm/ Dextrose 55 ml @ 110 mls/hr EVERY 12 HOURS IVPB 07/18/18 09:00 07/20/18 23:59 07/18/18 09:19 Clonidine HCl (Catapres Tab) 0.1 mg Q2H PRN GT sbp>170 07/17/18 22:30 08/12/18 15:53 Diltiazem HCl (Cardizem) 30 mg EVERY 8 HOURS GT 07/18/18 06:00 08/10/18 13:59 07/18/18 05:03 Escitalopram Oxalate (Lexapro) 10 mg DAILY GT 07/18/18 09:00 08/13/18 08:59 07/18/18 08:20 Haloperidol Lactate (Haldol) 5 mg Q6H PRN IM Agitation 07/18/18 04:00 08/08/18 15:54 Lansoprazole (Prevacid) 30 mg DAILY GT 07/18/18 09:00 08/17/18 08:59 07/18/18 08:20 Ondansetron HCl (Zofran) 4 mg Q6H PRN IVP Nausea & Vomiting 07/17/18 22:30 08/07/18 16:29 Polyethylene Glycol (Miralax) 17 gm BEDTIME GT 07/18/18 21:00 08/13/18 20:59 Potassium Chloride (K-Dur) 40 meq DAILY GT 07/18/18 09:00 08/13/18 08:59 07/18/18 08:20 Quetiapine Fumarate (SEROquel) 12.5 mg Q4H PRN GT anxiety 07/17/18 22:30 08/12/18 15:53 Warfarin Sodium (Coumadin per pharmacy) 1 ea DAILY PRN MISC Per rx protocol 07/18/18 09:00 08/11/18 11:29 Warfarin Sodium (Coumadin) 4 mg COUMADIN PO 07/18/18 17:00 07/23/18 16:59 GI: Plan Problems: (1) Gastrojejunostomy tube dislodgement (2) Anemia (3) Malnutrition Plan 18 libyan GT changed at bedside, okay to use. supportive care / conservative management monitor H&H, prn transfusions ppi zofran prn reglan for persistent vomiting / GI motility fu labs Discussed with Dr. Manzaon. Thank you for this patient referral, we will follow. The patient was seen and examined at bedside and all new and available data was reviewed in the patients chart. I agree with the above findings, impression and plan. (Patient seen earlier today. Signature stamp does not reflect patient encounter time.). - MD Lainey [facility] LOG SORTING SUPERVISOR Jul 18, 2018 11:48
[2018-07-18 12:00] VITALS: BP 132/78
[2018-07-18] MEDS ORDERED: SEROQUEL25 MG GT (12:26)
[2018-07-18] MEDS ORDERED: LEXAPRO10 MG GT (12:26)
[2018-07-18] MEDS ORDERED: CARDIZEM30 MG GT (12:26)
--- NOTE | 2018-07-18 12:34 | Pulmonology Progress Note ---
Assessment/Plan Problems: (1) Multiple organ failure (2) Septic shock (3) Pulmonary edema (4) ATN (acute tubular necrosis) (5) Pneumonia (6) Feeding by G-tube (7) Dementia Assessment/Plan sinus rhythm afebrile continue antibiotics on cefepime dc IV fluids off lasix iv f/u bun/creatinine Gtube feeding poor prognosis consider DNR status Subjective ROS Limited/Unobtainable: No Interval Events: awake, comfortable, wants to go back to long-term Constitutional: Reports: no symptoms HEENT: Repors: no symptoms Allergies: Coded Allergies: PENICILLINS (Verified Allergy, Intermediate, 07/08/18) Objective Last 24 Hour Vital Signs Date Time Temp Pulse Resp B/P (MAP) Pulse Ox O2 Delivery O2 Flow Rate FiO2 07/18/18 12:02 69 20 100 Nasal Cannula 2.0 28 07/18/18 11:51 67 20 96 Nasal Cannula 2.0 28 07/18/18 09:30 Nasal Cannula 3.0 07/18/18 09:00 Nasal Cannula 3.0 07/18/18 08:00 97.0 66 18 121/78 (92) 98 07/18/18 07:09 62 20 98 Nasal Cannula 2.0 28 07/18/18 06:59 62 20 97 Nasal Cannula 2.0 28 07/18/18 06:57 Nasal Cannula 2.0 28 07/18/18 06:56 97 Nasal Cannula 2.0 28 07/18/18 06:55 62 20 Nasal Cannula 2.0 28 07/18/18 05:03 67 149/91 07/18/18 04:29 98.8 67 18 149/91 (110) 98 07/18/18 00:00 98.0 72 18 144/79 (100) 100 07/17/18 22:10 96.9 72 18 140/79 (99) 97 07/17/18 21:36 80 158/80 07/17/18 21:00 Nasal Cannula 3.0 07/17/18 20:56 79 20 99 Nasal Cannula 2.0 28 07/17/18 20:35 75 20 98 Nasal Cannula 2.0 28 07/17/18 20:35 98 Nasal Cannula 2.0 28 07/17/18 20:35 Nasal Cannula 2.0 28 07/17/18 20:34 74 20 Nasal Cannula 2.0 28 07/17/18 20:00 97.7 75 24 152/87 (108) 99 07/17/18 16:00 51 07/17/18 16:00 98.2 59 16 142/72 (95) 97 07/17/18 13:16 70 155/79 07/17/18 12:33 97.8 70 16 155/79 (104) 97 07/17/18 12:30 79 20 99 Nasal Cannula 2.0 28 Intake and Output 07/17/18 07/18/18 19:00 07:00 Intake Total 590 ml Output Total 400 ml 600 ml Balance -400 ml -10 ml Intake Free Water 50 ml Tube Feeding 540 ml Output Urine Total 400 ml 600 ml # Voids 1 General Appearance: cachetic HEENT: normocephalic Respiratory/Chest: chest wall non-tender, lungs clear Cardiovascular: normal peripheral pulses, normal rate Abdomen: normal bowel sounds, soft, non tender Skin: no ulcers Neurologic/Psychiatric: no motor/sensory deficits, normal mood/affect Lymphatic: no groin adenopathy Laboratory Tests 07/18/18 05:40: White Blood Count 7.0, Red Blood Count 3.03L, Hemoglobin 9.3L, Hematocrit 28.4L , Mean Corpuscular Volume 94, Mean Corpuscular Hemoglobin 30.8, Mean Corpuscular Hemoglobin Concent 32.9, Red Cell Distribution Width 13.7, Platelet Count 312, Mean Platelet Volume 6.8, Neutrophils (%) (Auto) 68.7, Lymphocytes (% ) (Auto) 11.4L, Monocytes (%) (Auto) 7.2, Eosinophils (%) (Auto) 11.9H, Basophils (%) (Auto) 0.8, Prothrombin Time 17.8H, Prothromb Time International Ratio 1.7H, Sodium Level 147H, Potassium Level 3.4L, Chloride Level 103, Carbon Dioxide Level > 45*H, Blood Urea Nitrogen 33H, Creatinine 0.7, Estimat Glomerular Filtration Rate , Glucose Level 113H, Calcium Level 9.0, Total Bilirubin 0.3, Aspartate Amino Transf (AST/SGOT) 29, Alanine Aminotransferase ( ALT/SGPT) 31, Alkaline Phosphatase 167H, Pro-B-Type Natriuretic Peptide 2786H, Total Protein 7.0, Albumin 2.4L, Globulin 4.6, Albumin/Globulin Ratio 0.5L Current Medications Medications (Trade) Dose Ordered Sig/Jorge Route PRN Reason Start Time Stop Time Status Last Admin Dose Admin Acetaminophen (Tylenol) 650 mg Q4H PRN GT Temp > 100.5 07/17/18 22:30 08/16/18 18:29 Albuterol/ Ipratropium (Albuterol/ Ipratropium) 3 ml Q4HRT PRN HHN sob 07/17/18 23:00 07/19/18 07:29 07/18/18 11:51 Cefepime HCl 2 gm/ Dextrose 55 ml @ 110 mls/hr EVERY 12 HOURS IVPB 07/18/18 09:00 07/20/18 23:59 07/18/18 09:19 Clonidine HCl (Catapres Tab) 0.1 mg Q2H PRN GT sbp>170 07/17/18 22:30 08/12/18 15:53 Diltiazem HCl (Cardizem) 30 mg EVERY 8 HOURS GT 07/18/18 06:00 08/10/18 13:59 07/18/18 05:03 Escitalopram Oxalate (Lexapro) 10 mg DAILY GT 07/18/18 09:00 08/13/18 08:59 07/18/18 08:20 Haloperidol Lactate (Haldol) 5 mg Q6H PRN IM Agitation 07/18/18 04:00 08/08/18 15:54 Lansoprazole (Prevacid) 30 mg DAILY GT 07/18/18 09:00 08/17/18 08:59 07/18/18 08:20 Ondansetron HCl (Zofran) 4 mg Q6H PRN IVP Nausea & Vomiting 07/17/18 22:30 08/07/18 16:29 Polyethylene Glycol (Miralax) 17 gm BEDTIME GT 07/18/18 21:00 08/13/18 20:59 Potassium Chloride (K-Dur) 40 meq DAILY GT 07/18/18 09:00 08/13/18 08:59 07/18/18 08:20 Quetiapine Fumarate (SEROquel) 12.5 mg Q4H PRN GT anxiety 07/17/18 22:30 08/12/18 15:53 Warfarin Sodium (Coumadin per pharmacy) 1 ea DAILY PRN MISC Per rx protocol 07/18/18 09:00 08/11/18 11:29 Warfarin Sodium (Coumadin) 4 mg COUMADIN PO 07/18/18 17:00 07/23/18 16:59 Gerrtudis Quintanilla MD Jul 18, 2018 12:34
--- NOTE | 2018-07-18 13:25 | Infectious Diseases Prog Note ---
Assessment/Plan Assessment/Plan ASSESSMENT: The patient is an 88-year-old male with: Fever, Sp Leukocytosis, Sp UTI Ecoli / PSA Bacteremia E Coli doubt pneumonia pleural effusion 07/16 CXR: Slightly increased right pleural effusion. Otherwise stable findings over 2 days, as described 07/11 CXR: Pulmonary edema. Suspected bilateral pleural effusions. No interval change LACosis, Sp CHF EF: 55% Hypertension Gout Depression Anemia History of tongue cancer PLAN: - Continue the patient on Cefepime d# 8/10 11 SP Rocephin d # 2 116 Sp IV vancomycin and ertapenem d# 2 11 Sp IV amikacin d# 2 -Monitor CBC. -Monitor BMP -Monitor x-rays. Subjective Allergies: Coded Allergies: PENICILLINS (Verified Allergy, Intermediate, 07/08/18) Subjective Afebrile comfortable Objective Vital Signs Last 24 Hour Vital Signs Date Time Temp Pulse Resp B/P (MAP) Pulse Ox O2 Delivery O2 Flow Rate FiO2 07/18/18 12:02 69 20 100 Nasal Cannula 2.0 28 07/18/18 12:00 98.4 88 16 132/78 (96) 96 07/18/18 11:51 67 20 96 Nasal Cannula 2.0 28 07/18/18 09:30 Nasal Cannula 3.0 07/18/18 09:00 Nasal Cannula 3.0 07/18/18 08:00 97.0 66 18 121/78 (92) 98 07/18/18 07:09 62 20 98 Nasal Cannula 2.0 28 07/18/18 06:59 62 20 97 Nasal Cannula 2.0 28 07/18/18 06:57 Nasal Cannula 2.0 28 07/18/18 06:56 97 Nasal Cannula 2.0 28 07/18/18 06:55 62 20 Nasal Cannula 2.0 28 07/18/18 05:03 67 149/91 07/18/18 04:29 98.8 67 18 149/91 (110) 98 07/18/18 00:00 98.0 72 18 144/79 (100) 100 07/17/18 22:10 96.9 72 18 140/79 (99) 97 07/17/18 21:36 80 158/80 07/17/18 21:00 Nasal Cannula 3.0 07/17/18 20:56 79 20 99 Nasal Cannula 2.0 28 07/17/18 20:35 75 20 98 Nasal Cannula 2.0 28 07/17/18 20:35 98 Nasal Cannula 2.0 28 07/17/18 20:35 Nasal Cannula 2.0 28 07/17/18 20:34 74 20 Nasal Cannula 2.0 28 07/17/18 20:00 97.7 75 24 152/87 (108) 99 07/17/18 16:00 51 07/17/18 16:00 98.2 59 16 142/72 (95) 97 Height (Feet): 6 Height (Inches): 2.00 Weight (Pounds): 201 HEENT: anicteric Respiratory/Chest: no respiratory distress Cardiovascular: regular rhythm Abdomen: no organomegaly Laboratory Tests Test 07/18/18 05:40 White Blood Count 7.0 K/UL (4.8-10.8) Red Blood Count 3.03 M/UL (4.70-6.10) L Hemoglobin 9.3 G/DL (14.2-18.0) L Hematocrit 28.4 % (42.0-52.0) L Mean Corpuscular Volume 94 FL (80-99) Mean Corpuscular Hemoglobin 30.8 PG (27.0-31.0) Mean Corpuscular Hemoglobin Concent 32.9 G/DL (32.0-36.0) Red Cell Distribution Width 13.7 % (11.6-14.8) Platelet Count 312 K/UL (150-450) Mean Platelet Volume 6.8 FL (6.5-10.1) Neutrophils (%) (Auto) 68.7 % (45.0-75.0) Lymphocytes (%) (Auto) 11.4 % (20.0-45.0) L Monocytes (%) (Auto) 7.2 % (1.0-10.0) Eosinophils (%) (Auto) 11.9 % (0.0-3.0) H Basophils (%) (Auto) 0.8 % (0.0-2.0) Prothrombin Time 17.8 SEC (9.30-11.50) H Prothromb Time International Ratio 1.7 (0.9-1.1) H Sodium Level 147 MMOL/L (136-145) H Potassium Level 3.4 MMOL/L (3.5-5.1) L Chloride Level 103 MMOL/L (98-107) Carbon Dioxide Level > 45 MMOL/L (21-32) *H Blood Urea Nitrogen 33 mg/dL (7-18) H Creatinine 0.7 MG/DL (0.55-1.30) Estimat Glomerular Filtration Rate mL/min (>60) Glucose Level 113 MG/DL (74-106) H Calcium Level 9.0 MG/DL (8.5-10.1) Total Bilirubin 0.3 MG/DL (0.2-1.0) Aspartate Amino Transf (AST/SGOT) 29 U/L (15-37) Alanine Aminotransferase (ALT/SGPT) 31 U/L (12-78) Alkaline Phosphatase 167 U/L (46-116) H Pro-B-Type Natriuretic Peptide 2786 pg/mL (0-125) H Total Protein 7.0 G/DL (6.4-8.2) Albumin 2.4 G/DL (3.4-5.0) L Globulin 4.6 g/dL Albumin/Globulin Ratio 0.5 (1.0-2.7) L Current Medications Medications (Trade) Dose Ordered Sig/Jorge Route PRN Reason Start Time Stop Time Status Last Admin Dose Admin Acetaminophen (Tylenol) 650 mg Q4H PRN GT Temp > 100.5 07/17/18 22:30 08/16/18 18:29 Albuterol/ Ipratropium (Albuterol/ Ipratropium) 3 ml Q4HRT PRN HHN sob 07/17/18 23:00 07/19/18 07:29 07/18/18 11:51 Cefepime HCl 2 gm/ Dextrose 55 ml @ 110 mls/hr EVERY 12 HOURS IVPB 07/18/18 09:00 07/20/18 23:59 07/18/18 09:19 Clonidine HCl (Catapres Tab) 0.1 mg Q2H PRN GT sbp>170 07/17/18 22:30 08/12/18 15:53 Diltiazem HCl (Cardizem) 30 mg EVERY 8 HOURS GT 07/18/18 06:00 08/10/18 13:59 07/18/18 05:03 Escitalopram Oxalate (Lexapro) 10 mg DAILY GT 07/18/18 09:00 08/13/18 08:59 07/18/18 08:20 Haloperidol Lactate (Haldol) 5 mg Q6H PRN IM Agitation 07/18/18 04:00 08/08/18 15:54 Lansoprazole (Prevacid) 30 mg DAILY GT 07/18/18 09:00 08/17/18 08:59 07/18/18 08:20 Ondansetron HCl (Zofran) 4 mg Q6H PRN IVP Nausea & Vomiting 07/17/18 22:30 08/07/18 16:29 Polyethylene Glycol (Miralax) 17 gm BEDTIME GT 07/18/18 21:00 08/13/18 20:59 Potassium Chloride (K-Dur) 40 meq DAILY GT 07/18/18 09:00 08/13/18 08:59 07/18/18 08:20 Quetiapine Fumarate (SEROquel) 12.5 mg Q4H PRN GT anxiety 07/17/18 22:30 08/12/18 15:53 Warfarin Sodium (Coumadin per pharmacy) 1 ea DAILY PRN MISC Per rx protocol 07/18/18 09:00 08/11/18 11:29 Warfarin Sodium (Coumadin) 4 mg COUMADIN PO 07/18/18 17:00 07/23/18 16:59 Thuan Marti MD Jul 18, 2018 13:25
--- NOTE | 2018-07-18 13:43 | Diagnostic Imaging Report ---
Indication: Dyspnea Technique: One view of the chest Comparison: 07/16/2018 Findings: Previously demonstrated right-sided pleural effusion appears slightly smaller. Persistent right basilar hazy opacity may reflect some consolidation or atelectasis. Atelectasis and pleural fluid at the left lung base appears unchanged. Generalized mild interstitial congestion persists, unchanged. Cardiomegaly persists Impression: Slightly improved but persistent right pleural effusion, over 2 days Other stable findings as described
--- NOTE | 2018-07-18 13:59 | Cardiac Electrophysiology PN ---
Assessment/Plan Assessment/Plan 1.S/P Septic shock. Resolved. On iv Abx . Echocardiogram EF 55% 2. 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 Atrial fib with RVR . On Cardizem 30 po q 8 hrs and Coumadin per Rx. 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 20 beats of nonsustained VT while in SR on 07/11/18. EF 55%. EPS not indicated 7. Chronic left leg DVT. On Coumadin per RX. Duplex is still positive for DVT. 8. S/P respiratory failure, now off BiPAP. 9. Pleural effusion. Improved with Lasix. No thoracentesis now. 10. S/P PEG replacement today DW RN Subjective Subjective G tube was replaced today as it was leaking. Objective Last 24 Hour Vital Signs Date Time Temp Pulse Resp B/P (MAP) Pulse Ox O2 Delivery O2 Flow Rate FiO2 07/18/18 12:02 69 20 100 Nasal Cannula 2.0 28 07/18/18 12:00 98.4 88 16 132/78 (96) 96 07/18/18 11:51 67 20 96 Nasal Cannula 2.0 28 07/18/18 09:30 Nasal Cannula 3.0 07/18/18 09:00 Nasal Cannula 3.0 07/18/18 08:00 97.0 66 18 121/78 (92) 98 07/18/18 07:09 62 20 98 Nasal Cannula 2.0 28 07/18/18 06:59 62 20 97 Nasal Cannula 2.0 28 07/18/18 06:57 Nasal Cannula 2.0 28 07/18/18 06:56 97 Nasal Cannula 2.0 28 07/18/18 06:55 62 20 Nasal Cannula 2.0 28 07/18/18 05:03 67 149/91 07/18/18 04:29 98.8 67 18 149/91 (110) 98 07/18/18 00:00 98.0 72 18 144/79 (100) 100 07/17/18 22:10 96.9 72 18 140/79 (99) 97 07/17/18 21:36 80 158/80 07/17/18 21:00 Nasal Cannula 3.0 07/17/18 20:56 79 20 99 Nasal Cannula 2.0 28 07/17/18 20:35 75 20 98 Nasal Cannula 2.0 28 07/17/18 20:35 98 Nasal Cannula 2.0 28 07/17/18 20:35 Nasal Cannula 2.0 28 07/17/18 20:34 74 20 Nasal Cannula 2.0 28 07/17/18 20:00 97.7 75 24 152/87 (108) 99 07/17/18 16:00 51 07/17/18 16:00 98.2 59 16 142/72 (95) 97 Intake and Output 07/17/18 07/18/18 19:00 07:00 Intake Total 590 ml Output Total 400 ml 600 ml Balance -400 ml -10 ml Intake Free Water 50 ml Tube Feeding 540 ml Output Urine Total 400 ml 600 ml # Voids 1 Laboratory Tests Test 07/18/18 05:40 White Blood Count 7.0 K/UL (4.8-10.8) Red Blood Count 3.03 M/UL (4.70-6.10) L Hemoglobin 9.3 G/DL (14.2-18.0) L Hematocrit 28.4 % (42.0-52.0) L Mean Corpuscular Volume 94 FL (80-99) Mean Corpuscular Hemoglobin 30.8 PG (27.0-31.0) Mean Corpuscular Hemoglobin Concent 32.9 G/DL (32.0-36.0) Red Cell Distribution Width 13.7 % (11.6-14.8) Platelet Count 312 K/UL (150-450) Mean Platelet Volume 6.8 FL (6.5-10.1) Neutrophils (%) (Auto) 68.7 % (45.0-75.0) Lymphocytes (%) (Auto) 11.4 % (20.0-45.0) L Monocytes (%) (Auto) 7.2 % (1.0-10.0) Eosinophils (%) (Auto) 11.9 % (0.0-3.0) H Basophils (%) (Auto) 0.8 % (0.0-2.0) Prothrombin Time 17.8 SEC (9.30-11.50) H Prothromb Time International Ratio 1.7 (0.9-1.1) H Sodium Level 147 MMOL/L (136-145) H Potassium Level 3.4 MMOL/L (3.5-5.1) L Chloride Level 103 MMOL/L (98-107) Carbon Dioxide Level > 45 MMOL/L (21-32) *H Blood Urea Nitrogen 33 mg/dL (7-18) H Creatinine 0.7 MG/DL (0.55-1.30) Estimat Glomerular Filtration Rate mL/min (>60) Glucose Level 113 MG/DL (74-106) H Calcium Level 9.0 MG/DL (8.5-10.1) Total Bilirubin 0.3 MG/DL (0.2-1.0) Aspartate Amino Transf (AST/SGOT) 29 U/L (15-37) Alanine Aminotransferase (ALT/SGPT) 31 U/L (12-78) Alkaline Phosphatase 167 U/L (46-116) H Pro-B-Type Natriuretic Peptide 2786 pg/mL (0-125) H Total Protein 7.0 G/DL (6.4-8.2) Albumin 2.4 G/DL (3.4-5.0) L Globulin 4.6 g/dL Albumin/Globulin Ratio 0.5 (1.0-2.7) L Objective HEAD AND NECK: No JVD. LUNGS: Coarse rhonchi. CARDIOVASCULAR: Regular S1 and S2 with no gallop or murmur. ABDOMEN: Soft. GT feeding EXTREMITIES: 1+ pitting edema. Gerson Isaacs MD Jul 18, 2018 13:59
--- NOTE | 2018-07-18 15:01 | General Progress Note ---
Assessment/Plan Problem List: (1) Dementia ICD Codes: F03.90 - Unspecified dementia without behavioral disturbance SNOMED: 41364457 (2) Encephalopathy due to metabolic factor or toxin SNOMED: 662824662 Status: stable Assessment/Plan Haldol prn head 30degree provided ro Seroquel prn Subjective Date patient seen: Jul 18, 2018 Neurologic/Psychiatric: Reports: anxiety, depressed, emotional problems Allergies: Coded Allergies: PENICILLINS (Verified Allergy, Intermediate, 07/08/18) Subjective the pt was less agitated Objective Last 24 Hour Vital Signs Date Time Temp Pulse Resp B/P (MAP) Pulse Ox O2 Delivery O2 Flow Rate FiO2 07/18/18 14:08 69 132/78 07/18/18 12:02 69 20 100 Nasal Cannula 2.0 28 07/18/18 12:00 98.4 88 16 132/78 (96) 96 07/18/18 11:51 67 20 96 Nasal Cannula 2.0 28 07/18/18 09:30 Nasal Cannula 3.0 07/18/18 09:00 Nasal Cannula 3.0 07/18/18 08:00 97.0 66 18 121/78 (92) 98 07/18/18 07:09 62 20 98 Nasal Cannula 2.0 28 07/18/18 06:59 62 20 97 Nasal Cannula 2.0 28 07/18/18 06:57 Nasal Cannula 2.0 28 07/18/18 06:56 97 Nasal Cannula 2.0 28 07/18/18 06:55 62 20 Nasal Cannula 2.0 28 07/18/18 05:03 67 149/91 07/18/18 04:29 98.8 67 18 149/91 (110) 98 07/18/18 00:00 98.0 72 18 144/79 (100) 100 07/17/18 22:10 96.9 72 18 140/79 (99) 97 07/17/18 21:36 80 158/80 07/17/18 21:00 Nasal Cannula 3.0 07/17/18 20:56 79 20 99 Nasal Cannula 2.0 28 07/17/18 20:35 75 20 98 Nasal Cannula 2.0 28 07/17/18 20:35 98 Nasal Cannula 2.0 28 07/17/18 20:35 Nasal Cannula 2.0 28 11/13/18 20:34 74 20 Nasal Cannula 2.0 28 07/17/18 20:00 97.7 75 24 152/87 (108) 99 07/17/18 16:00 51 07/17/18 16:00 98.2 59 16 142/72 (95) 97 Intake and Output 07/17/18 07/18/18 19:00 07:00 Intake Total 590 ml Output Total 400 ml 600 ml Balance -400 ml -10 ml Intake Free Water 50 ml Tube Feeding 540 ml Output Urine Total 400 ml 600 ml # Voids 1 Laboratory Tests 07/18/18 05:40: White Blood Count 7.0, Red Blood Count 3.03L, Hemoglobin 9.3L, Hematocrit 28.4L , Mean Corpuscular Volume 94, Mean Corpuscular Hemoglobin 30.8, Mean Corpuscular Hemoglobin Concent 32.9, Red Cell Distribution Width 13.7, Platelet Count 312, Mean Platelet Volume 6.8, Neutrophils (%) (Auto) 68.7, Lymphocytes (% ) (Auto) 11.4L, Monocytes (%) (Auto) 7.2, Eosinophils (%) (Auto) 11.9H, Basophils (%) (Auto) 0.8, Prothrombin Time 17.8H, Prothromb Time International Ratio 1.7H, Sodium Level 147H, Potassium Level 3.4L, Chloride Level 103, Carbon Dioxide Level > 45*H, Blood Urea Nitrogen 33H, Creatinine 0.7, Estimat Glomerular Filtration Rate , Glucose Level 113H, Calcium Level 9.0, Total Bilirubin 0.3, Aspartate Amino Transf (AST/SGOT) 29, Alanine Aminotransferase ( ALT/SGPT) 31, Alkaline Phosphatase 167H, Pro-B-Type Natriuretic Peptide 2786H, Total Protein 7.0, Albumin 2.4L, Globulin 4.6, Albumin/Globulin Ratio 0.5L Height (Feet): 6 Height (Inches): 2.00 Weight (Pounds): 201 General Appearance: no apparent distress, alert, mild distress, agitated Bartolome Martin MD Jul 18, 2018 15:01
[2018-07-18 16:00] VITALS: BP 157/75
[2018-07-18] MEDS ORDERED: Sterile Water Irrig 1000ml IRRIG ONE (16:54)
[2018-07-18] MEDS ORDERED: Warfarin Sodium 4mg PO SCH (17:00)
[2018-07-18] MEDS ORDERED: Miralax 17gm pkt GT SCH (21:00)
--- NOTE | 2018-07-19 13:28 | Discharge Summary ---
Discharge Summary Discharge Summary _ DATE OF ADMISSION: 07/08/2018 DATE OF DISCHARGE: 07/18/2018 CONSULTANTS: Dr. Bartolome Ruiz BRIEF HOSPITAL COURSE: Patient is an 88-year-old white male, who presented with chief complaint of altered mental status. The patient is a resident of [facility]. Patient apparently was admitted to [facility] previously. He was discharged to [facility]. He had a history of DVT and is on Coumadin therapy. According to the staff at the intermediate, patient became altered for the last couple of days. Patient was initially able to speak and answer questions. The patient was increasingly altered on 07/07/2018. He was then taken to [facility] for further evaluation. He has medical history significant for CHF, hypertension, BPH and iron deficiency anemia. On evaluation at ED, patient was hypotensive, blood pressure 76/42, pulse rate 110, O2 saturation was low at 87% on room air. He was given gentle IV hydration and albumin. Blood pressure improved. Patient was alert and oriented, however, there was no dyspnea, he did not require intubation. WBC was 4, hemoglobin 10, hematocrit 30. He had elevated INR of 5.5. There was severe gross hematuria. Sales was placed and properly positioned. Urinalysis showed 4+ protein, 5+ blood, negative nitrite, 3+ leukocyte esterase, too many to count RBC, too many to count WBC. Influenza screen was negative. He was then admitted for evaluation of sepsis with septic shock, encephalopathy, UTI and pneumonia. He came in with POLST that states full code. He was started on IV pressors for blood pressure support. He was placed on BiPAP support. He was started on ertapenem and vancomycin pending culture results. He was followed by infectious disease specialist. Amikacin was placed on hold. He had coagulopathy. Fresh frozen plasma was given. Venous duplex of the lower extremity was negative for acute DVT, although with findings of chronic DVT to the left leg. Blood culture showed growth of Escherichia coli. Vancomycin and ertapenem were discontinued. He was given Rocephin. Blood pressure improved. IV pressors were discontinued. He was also taken off BiPAP support and was saturating well on nasal cannula. He was prescribed BiPAP at night but refused. Echocardiogram done showed ejection fraction of 55%. Patient had atrial fibrillation with RVR and had tachybradycardia syndrome. He was started on Cardizem drip and anticoagulation with Coumadin was resumed. He eventually converted to sinus rhythm. Cardizem drip was discontinued. Radu was started on Cardizem 30 mg every 8 hours. He had pleural effusion that improved with Lasix, no need for thoracentesis. Urine culture with growth of Escherichia coli and Pseudomonas. Rocephin was discontinued. He was given cefepime. Patient presented with altered mental status. Patient had waxing and waning of consciousness. He had episodes of confusion and agitation. He was placed on Haldol prn. He was eventually given Lexapro. On 07/13/2018, he had 20 beats of nonsustained V. tach. Troponin was checked and was negative. GI was consulted. G-tube was noted to have leakage. On evaluation, G-tube site was noted to have a tear and balloon was not fully inflated. On 07/18/2018 , G-tube was changed at bedside. He was restarted on G-tube feedings. Repeat urine culture showed growth of Escherichia coli. He completed 8 days of cefepime. Leukocytosis resolved. He was eventually discharged back to [facility]. FINAL DIAGNOSES: Septic shock UTI Escherichia coli/Pseudomonas Escherichia coli bacteremia Pneumonia Acute respiratory failure requiring BiPAP, resolved Pleural effusion Lactic acidosis Hypertension Tachybradycardia syndrome, resolved Atrial fibrillation with RVR Trifascicular block Nonsustained V. tach Chronic left leg DVT Malfunctioning PEG status post replacement Anemia Depression Gout History of tongue CA Anxiety disorder Altered level of consciousness/Encephalopathy Coagulopathy secondary to Coumadin use, status post plasma transfusion CHF Moderate pulmonary hypertension Constipation DISPOSITION: Patient was discharged to [facility]. DISCHARGE MEDICATIONS: Refer to Discharge Medication List. I have been assigned to dictate discharge summary on this account, and I was not involved in the patient's management. Rocío William NP Jul 19, 2018 13:28
== END 2018-07-18 18:21 | DRG 720 ==
LOC: EDBD 02:29 → EDBEDREQ 03:02 → EMR 03:26 → ICU 03:35 → EDBEDREQ 05:41 → 2E 07-10 05:20 → ICU 07-10 15:30 → 2W 07-13 16:23 → 2E 07-15 11:43 → 4E 07-17 22:01
PROC: 30233K1 Transfusion of Nonautologous Frozen Plasma into Peripheral Vein, Percutaneous Approach (ICD-10-PCS; 2018-07-08)
PROC: 5A09357 Assistance with Respiratory Ventilation, Less than 24 Consecutive Hours, Continuous Positive Airway Pressure (ICD-10-PCS; principal; 2018-07-11)
DX: A41.9 Sepsis, unspecified organism (principal); J96.00 Acute respiratory failure, unspecified whether with hypoxia or hypercapnia; N17.0 Acute kidney failure with tubular necrosis; R65.21 Severe sepsis with septic shock; G93.40 Encephalopathy, unspecified; E46 Unspecified protein-calorie malnutrition; J18.9 Pneumonia, unspecified organism; I47.2 Ventricular tachycardia; L89.151 Pressure ulcer of sacral region, stage 1; I11.0 Hypertensive heart disease with heart failure; I27.20 Pulmonary hypertension, unspecified; I45.3 Trifascicular block; N39.0 Urinary tract infection, site not specified; B96.20 Unspecified Escherichia coli [E. coli] as the cause of diseases classified elsewhere; B96.5 Pseudomonas (aeruginosa) (mallei) (pseudomallei) as the cause of diseases classified elsewhere; I10 Essential (primary) hypertension; I49.5 Sick sinus syndrome; I48.91 Unspecified atrial fibrillation; I82.502 Chronic embolism and thrombosis of unspecified deep veins of left lower extremity; Z43.1 Encounter for attention to gastrostomy; D64.9 Anemia, unspecified; F32.9 Major depressive disorder, single episode, unspecified; M10.9 Gout, unspecified; Z85.810 Personal history of malignant neoplasm of tongue; F41.9 Anxiety disorder, unspecified; R79.1 Abnormal coagulation profile; Z79.01 Long term (current) use of anticoagulants; K59.00 Constipation, unspecified; Z88.0 Allergy status to penicillin; F03.90 Unspecified dementia, unspecified severity, without behavioral disturbance, psychotic disturbance, mood disturbance, and anxiety; N40.0 Benign prostatic hyperplasia without lower urinary tract symptoms
CPT/HCPCS: 36415; 36600; 51702; 71045; 76770; 80048; 80053; 80150; 80202; 81003; 82248; 82550; 82803; 83605; 83735; 83880; 84100; 84484; 85007; 85025; 85610; 85730; 86710; 86850; 86900; 86901; 86927; 87040; 87070; 87081; 87086; 87181; 87205; 93005; 93306; 93970; 94640; 94660; 94664; 94760; 96361; 96365; 96367; 96375; 99285; J7620; J8499